=== PATIENT | male | born 1970 | race Caucasian/White ===

== ENCOUNTER 2016-09-19 11:51 | Emergency (ER) | payer OTHER ==
--- NOTE | 2016-09-19 12:14 | ED ---
General Adult HPI - General Chief complaint: Chest Pain Stated complaint: Chest Pain Time Seen by Provider: 09/19/16 12:01 Source: patient, RN notes reviewed, old records reviewed Mode of arrival: wheelchair Limitations: no limitations - History of Present Illness Initial comments: This is a 45-year-old male to the ER for evaluation. This patient presents today for evaluation of chest pain. Patient has history of angina and states this feels like his normal anginal pain. Patient has no recent cardiac evaluation he has had heart catheterizations in the past which have been normal. Patient denies increased stress no cough or congestion no fever shortness of breath. Symptoms started today and it progressed left-sided rating to jaw with no diaphoresis no modifying factors for symptoms - Related Data Home Medications Medication Instructions Recorded Confirmed Ibuprofen [Motrin] 800 mg PO Q6HR PRN 09/19/16 09/19/16 Allergies Allergy/AdvReac Type Severity Reaction Status Date / Time Penicillins Allergy Rash/Hives Verified 09/19/16 12:25 Sulfa (Sulfonamide Allergy Leg cramps Verified 09/19/16 12:25 Antibiotics) sulfamethoxazole Allergy LEG CRAMPS Verified 09/19/16 12:27 [From Bactrim] trimethoprim [From Bactrim] Allergy LEG CRAMPS Verified 09/19/16 12:27 Review of Systems ROS Statement: Those systems with pertinent positive or pertinent negative responses have been documented in the HPI. ROS Other: All systems not noted in ROS Statement are negative. Past Medical History Past Medical History: Chest Pain / Angina Additional Past Medical History / Comment(s): EPISODES OF PASSING OUT- HAD LOOP RECORDER AND CARDIAC TESTING AND PT STATES IT WAS NEGATIVE., IBS, ROSACEA, ARTHRITIS RIGHT KNEE, CARPAL TUNNEL LEFT WRIST. History of Any Multi-Drug Resistant Organisms: None Reported Past Surgical History: Appendectomy, Cholecystectomy, Heart Catheterization, Hernia Repair Additional Past Surgical History / Comment(s): loop recorder implanted 2005 and removed., ep studies,colonoscopy/egd,umbilical hernia repair, fx jaw, rt knee arthroscopy. 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 Smoking Status: Former smoker Past Alcohol Use History: None Reported Additional Past Alcohol Use History / Comment(s): started AGE 18, stopped 2000 , SMOKED < 1/2 PPD Past Drug Use History: None Reported - Past Family History Father Family Medical History: Cancer, Hypertension Additional Family Medical History / Comment(s): lung ca, MULTUPLE AK'S, PACEMAKER Mother Family Medical History: Chest Pain / Angina, Hypertension General Exam Limitations: no limitations General appearance: alert, in no apparent distress Head exam: Present: atraumatic, normocephalic, normal inspection Eye exam: Present: normal appearance, PERRL, EOMI. Absent: scleral icterus, conjunctival injection, periorbital swelling ENT exam: Present: normal exam, mucous membranes moist Neck exam: Present: normal inspection. Absent: tenderness, meningismus, lymphadenopathy Respiratory exam: Present: normal lung sounds bilaterally. Absent: respiratory distress, wheezes, rales, rhonchi, stridor Cardiovascular Exam: Present: regular rate, normal rhythm, normal heart sounds. Absent: systolic murmur, diastolic murmur, rubs, gallop, clicks GI/Abdominal exam: Present: soft, normal bowel sounds. Absent: distended, tenderness, guarding, rebound, rigid Extremities exam: Present: normal inspection, full ROM, normal capillary refill. Absent: tenderness, pedal edema, joint swelling, calf tenderness Back exam: Present: normal inspection Neurological exam: Present: alert, oriented X3, CN II-XII intact Psychiatric exam: Present: normal affect, normal mood Skin exam: Present: warm, dry, intact, normal color. Absent: rash Course Vital Signs 09/19/16 09/19/16 09/19/16 11:54 12:14 14:01 Temperature 97.4 F L 97.0 F L Pulse Rate 84 78 Pulse Rate [ 79 Bilateral Radial] Respiratory 18 15 Rate Blood Pressure 176/107 133/92 O2 Sat by Pulse 96 98 Oximetry - Reevaluation(s) Reevaluation #1: Patient consult a greater than 15 minutes and questions answered regarding diagnosis and inability to determine if he is having acute coronary syndrome or not with history and symptoms. Patient understands risks and would like to go home EKG Findings - EKG Comments: EKG Findings:: EKG shows normal sinus rhythm of 80, CT 140, QRS 110, QTC 431 Medical Decision Making - Medical Decision Making 45 malady ER with history of angina history of clean heart catheterization, coming in with anginal type pain. Patient EKG a troponin is negative. 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 Patient is in no acute distress, vital signs are normal and stable. Patient will be discharged home - Lab Data Result diagrams: 09/19/16 12:30 09/19/16 12:30 Lab Results 09/19/16 09/19/16 09/19/16 Range/Units 12:30 12:30 12:30 WBC 8.1 (3.8-10.6) k/uL RBC 5.09 (4.30-5.90) m/uL Hgb 14.9 (13.0-17.5) gm/dL Hct 43.6 (39.0-53.0) % MCV 85.6 (80.0-100.0) fL MCH 29.3 (25.0-35.0) pg MCHC 34.3 (31.0-37.0) g/dL RDW 13.2 (11.5-15.5) % Plt Count 232 (150-450) k/uL Neutrophils % 63 % Lymphocytes % 29 % Monocytes % 4 % Eosinophils % 3 % Basophils % 1 % Neutrophils # 5.1 (1.3-7.7) k/uL Lymphocytes # 2.3 (1.0-4.8) k/uL Monocytes # 0.3 (0-1.0) k/uL Eosinophils # 0.2 (0-0.7) k/uL Basophils # 0.0 (0-0.2) k/uL PT (9.0-12.0) sec INR (<1.1) APTT (22.0-30.0) sec Sodium 141 (137-145) mmol/L Potassium 4.3 (3.5-5.1) mmol/L Chloride 108 H (98-107) mmol/L Carbon Dioxide 22 (22-30) mmol/L Anion Gap 11 mmol/L BUN 12 (9-20) mg/dL Creatinine 0.81 (0.66-1.25) mg/dL Est GFR (MDRD) Af Amer >60 (>60 ml/min/1.73 sqM) Est GFR (MDRD) Non-Af >60 (>60 ml/min/1.73 sqM) Glucose 134 H (74-99) mg/dL Calcium 9.1 (8.4-10.2) mg/dL Magnesium 2.1 (1.6-2.3) mg/dL Total Bilirubin 0.5 (0.2-1.3) mg/dL AST 25 (17-59) U/L ALT 31 (21-72) U/L Alkaline Phosphatase 76 (38-126) U/L Total Creatine Kinase 83 (55-170) U/L CK-MB (CK-2) 0.8 (0.0-2.4) ng/mL CK-MB (CK-2) Rel Index 1.0 Troponin I <0.012 (0.000-0.034) ng/mL Total Protein 7.6 (6.3-8.2) g/dL Albumin 4.0 (3.5-5.0) g/dL Lipase 79 (23-300) U/L 09/19/16 Range/Units 12:30 WBC (3.8-10.6) k/uL RBC (4.30-5.90) m/uL Hgb (13.0-17.5) gm/dL Hct (39.0-53.0) % MCV (80.0-100.0) fL MCH (25.0-35.0) pg MCHC (31.0-37.0) g/dL RDW (11.5-15.5) % Plt Count (150-450) k/uL Neutrophils % % Lymphocytes % % Monocytes % % Eosinophils % % Basophils % % Neutrophils # (1.3-7.7) k/uL Lymphocytes # (1.0-4.8) k/uL Monocytes # (0-1.0) k/uL Eosinophils # (0-0.7) k/uL Basophils # (0-0.2) k/uL PT 10.0 (9.0-12.0) sec INR 1.0 (<1.1) APTT 23.8 (22.0-30.0) sec Sodium (137-145) mmol/L Potassium (3.5-5.1) mmol/L Chloride (98-107) mmol/L Carbon Dioxide (22-30) mmol/L Anion Gap mmol/L BUN (9-20) mg/dL Creatinine (0.66-1.25) mg/dL Est GFR (MDRD) Af Amer (>60 ml/min/1.73 sqM) Est GFR (MDRD) Non-Af (>60 ml/min/1.73 sqM) Glucose (74-99) mg/dL Calcium (8.4-10.2) mg/dL Magnesium (1.6-2.3) mg/dL Total Bilirubin (0.2-1.3) mg/dL AST (17-59) U/L ALT (21-72) U/L Alkaline Phosphatase (38-126) U/L Total Creatine Kinase (55-170) U/L CK-MB (CK-2) (0.0-2.4) ng/mL CK-MB (CK-2) Rel Index Troponin I (0.000-0.034) ng/mL Total Protein (6.3-8.2) g/dL Albumin (3.5-5.0) g/dL Lipase (23-300) U/L - Radiology Data Radiology results: report reviewed (Chest x-ray two-view is negative for acute disease), image reviewed Critical Care Time Critical Care Time: Yes Total Critical Care Time: 31 Disposition Clinical Impression: Chest pain Disposition: HOME SELF-CARE Condition: Good Instructions: Chest Pain (ED) Referrals: Marco Oropeza III, MD [Primary Care Provider] - 1-2 days
[2016-09-19 12:38] LABS: Basophils % (A) 1 %; CHCM 35.2; Eosinophils # (A) 0.2 k/uL (0-0.7); Eosinophils % (A) 3 %; HCT 43.6 % (39.0-53.0); HGB 14.9 gm/dL (13.0-17.5); Luc # (Auto) 0.19; Luc % (Auto) 2; Lymphocytes # (A) 2.3 k/uL (1.0-4.8); Lymphocytes % (A) 29 %; MCH 29.3 pg (25.0-35.0); MCHC 34.3 g/dL (31.0-37.0); MCV 85.6 fL (80.0-100.0); Mean Platelet Volume 7.6; Monocytes # (A) 0.3 k/uL (0-1.0); Monocytes % (A) 4 %; Neutrophils # (A) 5.1 k/uL (1.3-7.7); Neutrophils % (A) 63 %; RBC 5.09 m/uL (4.30-5.90); RDW 13.2 % (11.5-15.5); WBC 8.1 k/uL (3.8-10.6); WBC (Perox) 8.01
[2016-09-19 12:45] LABS: Partial Thromboplastin Time 23.8 sec (22.0-30.0)
--- NOTE | 2016-09-19 12:54 | XR ---
EXAMINATION TYPE: XR chest 2V DATE OF EXAM: 09/19/2016 12:45 PM COMPARISON: Prior chest x-ray third of April 2016 HISTORY: Chest pain TECHNIQUE: Frontal and lateral views of the chest are obtained. FINDINGS: Lung volumes are low. Cardiomediastinal silhouette, pulmonary vascularity and myla are sta ble. No pneumonia, pneumothorax, or pleural effusion. IMPRESSION: No acute cardiopulmonary process.
[2016-09-19 13:02] LABS: ALT 31 U/L (21-72); AST 25 U/L (17-59); Alkaline Phosphatase 76 U/L (38-126); Anion Gap 11 mmol/L; Blood Urea Nitrogen 12 mg/dL (9-20); Calcium 9.1 mg/dL (8.4-10.2); Carbon Dioxide 22 mmol/L (22-30); Chloride 108 mmol/L (98-107); Glucose 134 mg/dL (74-99); Magnesium 2.1 mg/dL (1.6-2.3); Non-African American GFR(MDRD) >60 (>60 ml/min/1.73 sqM); Potassium 4.3 mmol/L (3.5-5.1); Sodium 141 mmol/L (137-145); Total Bilirubin 0.5 mg/dL (0.2-1.3); Total Protein 7.6 g/dL (6.3-8.2)
[2016-09-19 13:03] LABS: Creatine Kinase 83 U/L (55-170)
[2016-09-19 13:15] LABS: Creatine Kinase MB 0.8 ng/mL (0.0-2.4); Troponin I <0.012 ng/mL (0.000-0.034)
[2016-09-19 14:04] VITALS: BP 133/92; PULSE 78; RESP 15; TEMP 97
== END 2016-09-19 14:04 | disposition home or self-care (01) ==
LOC: EC 11:51
DX: R07.9 Chest pain, unspecified (principal); Z98.61 Coronary angioplasty status; Z88.0 Allergy status to penicillin; Z88.2 Allergy status to sulfonamides; Z88.1 Allergy status to other antibiotic agents; Z87.891 Personal history of nicotine dependence
CPT/HCPCS: 36415; 71020; 80053; 82550; 82553; 83690; 83735; 84484; 85025; 85610; 85730; 93005; 99291

== ENCOUNTER → 2017-04-10 | Outpatient (CLI) | payer OTHER ==
--- NOTE | 2017-04-11 10:18 | CT ---
EXAMINATION TYPE: CT abdomen pelvis w con DATE OF EXAM: 04/10/2017 COMPARISON: 05/27/2015 INDICATION: Abdominal pain with blood in stool. DLP: 1869 mGycm, Automated exposure control for dose reduction was used. CONTRAST: 100 mL of Omnipaque 300. Study performed with Oral Contrast TECHNIQUE: Axial images were obtained from above the diaphragm to the pubic rami in the axial plane a t 5 mm thick sections. Reconstructed images are reviewed on the computer in the coronal plane. FINDINGS: Limited CT sections are obtained the lung bases. The lung bases are clear. CT ABDOMEN: Liver: Normal Spleen: Normal Pancreas: Normal Adrenal glands: The adrenal glands are normal. Gallbladder: Surgically absent. Kidneys: No masses are evident. No hydronephrosis is present. No cysts are present. Delayed images were obtained through the kidneys, which remain unremarkable. Aorta: Normal Inferior vena cava: Normal. CT PELVIS: Loops of bowel within the abdomen and pelvis are normal. There are loops of bowel which are incom pletely distended or lack oral contrast limiting their evaluation. No suspicious inflammatory change or masses are identified. Appendix: Normal as visualized. Urinary bladder: Normal. Genitourinary structures: Prostate is unremarkable Osseous structures: No suspicious lytic or sclerotic lesions. IMPRESSIONS: 1. Unremarkable CT abdomen and pelvis.
== END | disposition home or self-care (01) ==
LOC: RADCTMAIN 18:49
PROVIDERS: ATTEND Family Medicine
DX: K92.1 Melena (principal); R10.9 Unspecified abdominal pain
CPT/HCPCS: 74177; Q9967

== ENCOUNTER 2017-05-28 15:44 | Inpatient (IN) | payer OTHER ==
[2017-05-28] MEDS ORDERED: NITROGLYCERIN SL TABS 0.4 MG TAB SUBLINGUAL PRN ×2 (16:18→18:11)
[2017-05-28] MEDS ORDERED: ASPIRIN 81 MG PO STA (16:18)
--- NOTE | 2017-05-28 16:20 | ED ---
Chest Pain HPI - General Chief Complaint: Chest Pain Stated Complaint: Chest Pain Time Seen by Provider: 05/28/17 16:00 Source: patient, RN notes reviewed Mode of arrival: wheelchair Limitations: no limitations - History of Present Illness Initial Comments: This is a 46-year-old male with a history of hypertension and high cholesterol a former smoker who quit several years ago who states he had the onset this morning of left-sided chest discomfort. He states he got worse today after going upstairs a chest tightness and pressure is some dizziness. He states the pain initially was 8/10 severity now is down to 3-4/10. She had no cough other than a slight one this morning no phlegm no fevers chills sweats no trauma. MD Complaint: chest pain - Related Data Home Medications Medication Instructions Recorded Confirmed Atorvastatin [Lipitor] 20 mg PO DAILY 05/28/17 05/28/17 Dicyclomine [Bentyl] 20 mg PO QID 05/28/17 05/28/17 Escitalopram [Lexapro] 10 mg PO DAILY 05/28/17 05/28/17 Losartan [Cozaar] 50 mg PO DAILY 05/28/17 05/28/17 Pantoprazole Sodium [Protonix] 40 mg PO BID 05/28/17 05/28/17 cloNIDine HCL [Catapres] 0.1 mg PO BID 05/28/17 05/28/17 Allergies Allergy/AdvReac Type Severity Reaction Status Date / Time Penicillins Allergy Rash/Hives Verified 05/28/17 16:46 Sulfa (Sulfonamide AdvReac Leg cramps Verified 05/28/17 16:46 Antibiotics) sulfamethoxazole AdvReac LEG CRAMPS Verified 05/28/17 16:46 [From Bactrim] trimethoprim [From Bactrim] AdvReac LEG CRAMPS Verified 05/28/17 16:46 Review of Systems ROS Statement: Those systems with pertinent positive or pertinent negative responses have been documented in the HPI. ROS Other: All systems not noted in ROS Statement are negative. EKG Findings - EKG Results: EKG: interpreted by AMANDA, sinus rhythm (Normal sinus rhythm a rate of 72. Interval 158 QRS 106 QT since QTC of [address]-T wave changes seen.) Past Medical History Past Medical History: Chest Pain / Angina Additional Past Medical History / Comment(s): EPISODES OF PASSING OUT- HAD LOOP RECORDER AND CARDIAC TESTING AND PT STATES IT WAS NEGATIVE., IBS, ROSACEA, ARTHRITIS RIGHT KNEE, CARPAL TUNNEL LEFT WRIST. History of Any Multi-Drug Resistant Organisms: None Reported Past Surgical History: Appendectomy, Cholecystectomy, Heart Catheterization, Hernia Repair Additional Past Surgical History / Comment(s): loop recorder implanted 2005 and removed., ep studies,colonoscopy/egd,umbilical hernia repair, fx jaw, rt knee arthroscopy. Past Anesthesia/Blood Transfusion Reactions: No Reported Reaction Additional Past Anesthesia/Blood Transfusion Reaction / Comment(s): CLAUSTROPHOBIC Past Psychological History: No Psychological Hx Reported Smoking Status: Former smoker Past Alcohol Use History: None Reported Past Drug Use History: None Reported - Past Family History Father Family Medical History: Cancer, Hypertension Additional Family Medical History / Comment(s): lung ca, MULTUPLE CA'S, PACEMAKER Mother Family Medical History: Chest Pain / Angina, Hypertension General Exam - General Exam Comments Initial Comments: This is a well-developed well-nourished awake alert oriented 3 male Limitations: no limitations General appearance: alert, in no apparent distress Head exam: Present: atraumatic, normocephalic, normal inspection Eye exam: Present: normal appearance, PERRL, EOMI. Absent: scleral icterus, conjunctival injection, periorbital swelling ENT exam: Present: normal exam, mucous membranes moist Neck exam: Present: normal inspection. Absent: tenderness, meningismus, lymphadenopathy Respiratory exam: Present: normal lung sounds bilaterally. Absent: respiratory distress, wheezes, rales, rhonchi, stridor Cardiovascular Exam: Present: regular rate, normal rhythm, normal heart sounds. Absent: systolic murmur, diastolic murmur, rubs, gallop, clicks GI/Abdominal exam: Present: soft, normal bowel sounds. Absent: distended, tenderness, guarding, rebound, rigid Extremities exam: Present: normal inspection, full ROM, normal capillary refill. Absent: tenderness, pedal edema, joint swelling, calf tenderness Back exam: Present: normal inspection Neurological exam: Present: alert, oriented X3, CN II-XII intact Psychiatric exam: Present: normal affect, normal mood Skin exam: Present: warm, dry, intact, normal color. Absent: rash Course Vital Signs 05/28/17 05/28/17 05/28/17 15:46 16:26 17:00 Temperature 98.2 F Pulse Rate 89 84 66 Respiratory 18 18 18 Rate Blood Pressure 139/94 133/82 116/66 O2 Sat by Pulse 96 95 98 Oximetry 05/28/17 17:45 Temperature Pulse Rate 68 Respiratory 18 Rate Blood Pressure 116/67 O2 Sat by Pulse 99 Oximetry Chest Pain MDM - MDM Review the imaging shows no acute findings. Patient did get relief from the chest discomfort with aspirin and nitroglycerin. I did a long discussion with him and his family regarding findings patient be admitted for evaluation by cardiology. I did discuss the case with the hospitalist Dr. Carrera. Critical Care Time Critical Care Time: Yes Critical Care Time: 31 minutes of critical care time which includes initial presentation with history physical labs x-rays reevaluation the patient on several occasions for responsive therapy discuss with the patient regarding findings discussed with the admitting physician admission orders and documentation of the above. Disposition Clinical Impression: Unstable angina pectoris, Chest pain Disposition: ADMITTED IP TO THIS [facility] Condition: Stable Referrals: Marco Oropeza III, MD [Primary Care Provider] - 1-2 days
[2017-05-28 16:28] LABS: Basophils # (A) 0.1 k/uL (0-0.2); Basophils % (A) 1 %; CH 29.8; CHCM 34.8; Eosinophils # (A) 0.2 k/uL (0-0.7); Eosinophils % (A) 2 %; HCT 42.8 % (39.0-53.0); HDW 2.63; HGB 14.5 gm/dL (13.0-17.5); Luc # (Auto) 0.14; Luc % (Auto) 1; Lymphocytes # (A) 2.2 k/uL (1.0-4.8); Lymphocytes % (A) 20 %; MCH 29.1 pg (25.0-35.0); MCHC 33.8 g/dL (31.0-37.0); Mean Platelet Volume 7.3; Monocytes # (A) 0.6 k/uL (0-1.0); Monocytes % (A) 5 %; Neutrophils # (A) 7.6 k/uL (1.3-7.7); Neutrophils % (A) 71 %; RBC 4.98 m/uL (4.30-5.90); RDW 13.3 % (11.5-15.5); WBC 10.7 k/uL (3.8-10.6); WBC (Perox) 10.26
[2017-05-28 16:46] LABS: ALT 37 U/L (21-72); AST 26 U/L (17-59); Alkaline Phosphatase 99 U/L (38-126); Anion Gap 10 mmol/L; Blood Urea Nitrogen 13 mg/dL (9-20); Calcium 9.1 mg/dL (8.4-10.2); Carbon Dioxide 23 mmol/L (22-30); Chloride 106 mmol/L (98-107); Glucose 110 mg/dL (74-99); Non-African American GFR(MDRD) >60 (>60 ml/min/1.73 sqM); Potassium 4.2 mmol/L (3.5-5.1); Sodium 139 mmol/L (137-145); Total Bilirubin 0.5 mg/dL (0.2-1.3); Total Protein 7.7 g/dL (6.3-8.2)
[2017-05-28 16:49] LABS: Partial Thromboplastin Time 23.3 sec (22.0-30.0); Prothrombin Time 10.1 sec (9.0-12.0)
[2017-05-28 16:54] LABS: Creatine Kinase 103 U/L (55-170)
[2017-05-28 17:07] LABS: Troponin I <0.012 ng/mL (0.000-0.034)
--- NOTE | 2017-05-28 17:10 | XR ---
EXAMINATION TYPE: XR chest 2V DATE OF EXAM: 05/28/2017 COMPARISON: 09/19/2016 HISTORY: 46-year-old male with chest pain TECHNIQUE: PA and lateral views FINDINGS: The cardiomediastinal silhouette, aorta, and pulmonary vasculature are within normal limits. Strandy atelectasis in the lower lungs. Otherwise, lungs and pleural spaces are clear. IMPRESSION: No acute cardiopulmonary process.
[2017-05-28] MEDS ORDERED: HEPARIN SODIUM,PORCINE 5,000 UNIT/ML 1 ML VIAL IV ONE (18:11)
[2017-05-28] MEDS ORDERED: HEPARIN SODIUM,PORCINE/D5W PMX 25,000 UNIT in DEXTROSE/WATER 1 500ML.BAG IV SCH (18:15)
[2017-05-28] MEDS ORDERED: SODIUM CHLORIDE 0.9% 1,000 ML IV SCH (18:15)
[2017-05-28 19:20] LABS: Acetaminophen <10.0 ug/mL; Alcohol <10 mg/dL; Salicylate <1.0 mg/dL
[2017-05-28 20:18] VITALS: BMI 41.8
[2017-05-28] MEDS: PANTOPRAZOLE 40 MG TABLET PO SCH (20:30)
[2017-05-28] MEDS: cloNIDine HCL 0.1 MG TAB PO SCH (20:30)
[2017-05-28] MEDS: DICYCLOMINE 20 MG TAB PO SCH (20:31)
[2017-05-28] MEDS ORDERED: ALBUTEROL NEBULIZED 2.5 MG/3 ML INHALATION PRN (22:45)
--- NOTE | 2017-05-28 22:46 | P.HPIM ---
History of Present Illness H&P Date: 05/28/17 Chief Complaint: Shortness of breath Patient is a 46 old male with a known history of hypertension, IBS, GERD and hyperlipidemia, anxiety came to the hospital with complaints of chest pressure. Patient was apparently claiming up states and felt chest pressure. By the time he reached the top he felt very short of breath and dizzy. Patient also nauseated and diaphoretic. Chest pressure initially was 8/ 10 severity. Otherwise patient denied any cough or sputum production. Patient did have some dry cough. No recent illnesses.Recent travel. No injury or trauma. No sick contacts at home. Patient denied any fever or chills. Patient says that his IBS is in good control. She says that he had similar complaints previously and also had cardiac catheter patient about 2 years back. Patient quit smoking several years back Chest x-ray showed no acute coronary process EKG normal sinus rhythm D-dimer not elevated All other laboratory data unremarkable Review of Systems Constitutional: Patient denies any fever or chills . No generalized weakness or weight loss. Abdomen: Patient denied nausea vomiting and diarrhea and abdominal pain. Cardiovascular: Patient does have chest pressure. No palpitations. Patient does have shortness of breath and diaphoresis. Respiratory: patient denied any cough is from production. No shortness of breath Neurologic: Patient denied any numbness or tingling headache. Musculoskeletal: Patient denies any complaints of joint swelling or deformity. Skin: Negative Psychiatric: Negative Endocrine: No heat or cold intolerance. No recent weight gain. Genitourinary: No dysuria or hematuria. All other 14 point ROS negative except the above Past Medical History Past Medical History: Chest Pain / Angina, GERD/Reflux Additional Past Medical History / Comment(s): EPISODES OF PASSING OUT- HAD LOOP RECORDER AND CARDIAC TESTING AND PT STATES IT WAS NEGATIVE., IBS, ROSACEA, ARTHRITIS RIGHT KNEE, CARPAL TUNNEL LEFTand Right WRIST. History of Any Multi-Drug Resistant Organisms: None Reported Past Surgical History: Appendectomy, Cholecystectomy, Heart Catheterization, Hernia Repair Additional Past Surgical History / Comment(s): loop recorder implanted 2005 and removed., ep studies,colonoscopy/egd,umbilical and hiatal hernia repair, fx jaw, rt knee arthroscopy. 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 Smoking Status: Former smoker Past Alcohol Use History: None Reported Additional Past Alcohol Use History / Comment(s): started AGE 18, stopped 2000 , SMOKED < 1/2 PPD Past Drug Use History: None Reported - Past Family History Father Family Medical History: Cancer, Hypertension Additional Family Medical History / Comment(s): lung ca, MULTUPLE AL'S, PACEMAKER Mother Family Medical History: Chest Pain / Angina, Hypertension Medications and Allergies Home Medications Medication Instructions Recorded Confirmed Type Atorvastatin [Lipitor] 20 mg PO DAILY 05/28/17 05/28/17 History Dicyclomine [Bentyl] 20 mg PO QID 05/28/17 05/28/17 History Escitalopram [Lexapro] 10 mg PO DAILY 05/28/17 05/28/17 History Losartan [Cozaar] 50 mg PO DAILY 05/28/17 05/28/17 History Pantoprazole Sodium [Protonix] 40 mg PO BID 05/28/17 05/28/17 History cloNIDine HCL [Catapres] 0.1 mg PO BID 05/28/17 05/28/17 History Allergies Allergy/AdvReac Type Severity Reaction Status Date / Time Penicillins Allergy Rash/Hives Verified 05/28/17 16:46 Sulfa (Sulfonamide AdvReac Leg cramps Verified 05/28/17 16:46 Antibiotics) sulfamethoxazole AdvReac LEG CRAMPS Verified 05/28/17 16:46 [From Bactrim] trimethoprim [From Bactrim] AdvReac LEG CRAMPS Verified 05/28/17 16:46 Physical Exam Vitals: Vital Signs Temp Pulse Pulse Resp BP BP Pulse Ox 05/28/17 19:07 97 F L 61 16 114/62 99 05/28/17 18:56 97.1 F L 64 16 122/66 98 05/28/17 18:11 98 05/28/17 17:45 68 18 116/67 99 05/28/17 17:00 66 18 116/66 98 05/28/17 16:26 84 18 133/82 95 05/28/17 15:46 98.2 F 89 18 139/94 96 Intake and Output 05/28/17 05/28/1717 06:59 14:59 22:59 Intake Total 20 Balance 20 Intake: IV 20 Sodium Chloride 0.9% 1, 20 000 ml @ 20 mls/hr IV . Q24H [facility] Rx#:[id number] Other: # Voids 1 Weight 147.8 kg Patient Weight 05/29/17 06:59 Weight 147.8 kg PHYSICAL EXAMINATION: Patient is lying in the bed comfortably, no acute distress, awake alert and oriented.. HEENT: Normocephalic. Neck is supple. Pupils reactive. Nostrils clear. Oral cavity is moist. Ears reveal no drainage. Neck reveals no JVD, carotid bruits, or thyromegaly. CHEST EXAMINATION: Trachea is central. Symmetrical expansion. Decreased air entry bilateral basally. No wheezing noted. CARDIAC: Normal S1, S2 with no gallops. No murmurs ABDOMEN: Soft. Bowel sounds normal. No organomegaly. No abdominal bruits. Extremities: reveal no edema. No clubbing or cyanosis Neurologically awake, alert, oriented x3 with well-coordinated movements. No focal deficits noted Skin: No rash or skin lesions. Psychiatric: Operative. Nonsuicidal Musculoskeletal: No joint swelling or deformity. Normal range of motion. Results CBC & Chem 7: 05/28/17 16:12 05/28/17 16:12 Labs: Abnormal Lab Results - Last 24 Hours (Table) 05/28/17 05/28/17 Range/Units 16:12 16:12 WBC 10.7 H (3.8-10.6) k/uL Glucose 110 H (74-99) mg/dL Thrombosis Risk Factor Assmnt - Choose All That Apply Any of the Below Risk Factors Present?: Yes Each Factor Represents 1 point: Age 41-60 years, Obesity (BMI >25) Other Risk Factors: No Other congenital or acquired thrombophilia - If yes, enter type in comment: No Thrombosis Risk Factor Assessment Total Risk Factor Score: 2 Thrombosis Risk Factor Assessment Level: Low Risk Assessment and Plan Assessment: #1 chest pain with exertion short of breath. Possible unstable angina #2 hypertension #3 IBS #4 GERD #5 mild obesity with BMI 41.8 #6 previous history of smoking quit several years ago Plan: Patient will be continued on telemetry monitoring. Initial EKG and troponin negative. We'll continue the heparin IV and continue the home medications. Patient was started on aspirin and statin and cardiology was consulted. Will add albuterol breathing treatments as needed. Follow closely. Further recommendations based on the clinical course.
[2017-05-28] MEDS: NITROGLYCERIN OINT 1 INCH/GM PACKET TOPICAL SCH (23:02)
[2017-05-28 23:18] LABS: Creatine Kinase 100 U/L (55-170)
[2017-05-28 23:32] LABS: Creatine Kinase MB 0.8 ng/mL (0.0-2.4); Troponin I <0.012 ng/mL (0.000-0.034)
[2017-05-29 05:07] LABS: Cholesterol 174 mg/dL (<200); HDL Cholesterol 39 mg/dL (40-60)
[2017-05-29 05:33] LABS: Creatine Kinase 90 U/L (55-170)
[2017-05-29 05:45] LABS: Creatine Kinase MB 0.8 ng/mL (0.0-2.4); Troponin I <0.012 ng/mL (0.000-0.034)
[2017-05-29] MEDS: NITROGLYCERIN OINT 1 INCH/GM PACKET TOPICAL SCH (05:51)
[2017-05-29] MEDS ORDERED: AMINOPHYLLINE 500 MG/20 ML VIAL IV PRN (09:09)
[2017-05-29] MEDS ORDERED: REGADENOSON 0.4 MG/5 ML SYRINGE IV ONE (09:09)
[2017-05-29] MEDS: ASPIRIN 325 MG TAB PO SCH (11:36)
[2017-05-29] MEDS: PANTOPRAZOLE 40 MG TABLET PO SCH ×2 (11:36→21:11)
[2017-05-29] MEDS: ATORVASTATIN 20 MG TAB PO SCH (11:36)
[2017-05-29] MEDS: DICYCLOMINE 20 MG TAB PO SCH ×4 (11:37→23:18)
[2017-05-29] MEDS: ESCITALOPRAM 10 MG TAB PO SCH (11:37)
[2017-05-29] MEDS: LOSARTAN 50 MG TAB PO SCH (11:37)
[2017-05-29] MEDS: cloNIDine HCL 0.1 MG TAB PO SCH ×2 (11:37→21:11)
--- NOTE | 2017-05-29 12:18 | EST ---
EXERCISE STRESS AGE: 46 SEX: M HT: 74" WT: 325 PROTOCOL: Lexiscan Cardiolite Stress Test. HEART RATE REST: 60 BLOOD PRESSURE REST: 167/105 MAXIMUM HEART RATE ACHIEVED: 87 MAXIMUM BLOOD PRESSURE: 220/94 85% MPHR: 148 100% MPHR: 174 INDICATIONS: Chest pain. CLINICAL INFORMATION: Baseline rhythm is sinus mechanism, rate of 60, normal axis and intervals. Normal cardiogram. Baseline blood pressure 167/105 mmHg. Patient received an injection of Lexiscan. Electrocardiographic monitoring revealed no evidence of diagnostic ischemic ST deviation. Cardiolite was injected per protocol. CONCLUSION: 1. Nondiagnostic electrocardiograph Cardiolite stress testing. 2. Nuclear images will be reported separately. MMODL / IJN: [id number] /
--- NOTE | 2017-05-29 12:23 | NM ---
EXAMINATION TYPE: NM stress lexiscan cardiolite DATE OF EXAM: 05/29/2017 COMPARISON: NONE HISTORY: Chest pain TECHNIQUE: After the intravenous administration of 11.9 mCi Tc 99m Sestamibi - Cardiolite resting SP ECT images acquired 45 minutes post injection. The patient received 0.4mg Lexiscan, 26.6 mCi Tc 99m Sestamibi - Stress images obtained [address] injection FINDINGS: Review of stress and rest SPECT images demonstrates focus of decreased uptake along the anterolateral left ventricle on stress images as compared to rest images towards the base of the heart. Gated anal ysis shows normal wall motion with an estimated left ventricular ejection fraction of 58 %. IMPRESSION: Findings may represent some pharmacologically induced left ventricular myocardial ischemia along the inferolateral left ventricle towards the base of the heart. A Yellow message has been communicated to Michelle Carrera MD via the [employer] system on 05/29/2017 12:21 PM, Message ID [id number].
--- NOTE | 2017-05-29 13:33 | P.CRDCN ---
History of Present Illness Consult date: 05/29/17 History of present illness: This is a 46-year-old male past medical history significant for hypertension, hyperlipidemia and gastroesophageal reflux disease. He has follow -up with Dr. Loyola in the past. She has not seen him since 2014. At that time he underwent cardiac catheterization which revealed normal coronary arteries. He states yesterday around 7:30 in the morning if felt increasingly weak and fatigued. 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 Later in the afternoon around 2 or 3 he was walking up the stairs in the home and alternative pressure across his chest midsternal region radiating up into his neck and jaw associated with dizziness and diaphoresis and mild nausea. He states he sat down on the steps for about 5 minutes to get his bearings. After sitting down symptoms mildly subsided but still there. This episode is exactly the way he presented in 2014 prior to cardiac catheterization. At the time my examination he denies chest pain, shortness of breath, dizziness, nausea, vomiting or palpitations. EKG reveals sinus mechanism with T-wave inversions in inferior leads that is consistent with previous EKG. Cardiac enzymes negative 3, potassium 4.2, magnesium 2.0, hemoglobin 14.5, platelets 228, d-dimer negative, BUN 13, creatinine 0.9, LDL 90, HDL 39, triglycerides 223, total cholesterol 174, proBNP 230. Chest x-ray negative for acute cardiopulmonary process. Current cardiac medications include Catapres 0.1 mg twice a day, losartan 50 mg daily and Lipitor 20 mg daily. Review of Systems CONSTITUTIONAL: Denies fever. Denies chills. EYES: Denies blurred vision. Denies vision changes. Denies eye pain. EARS, NOSE, MOUTH & THROAT: Denies headache. Denies sore throat. Denies ear pain. CARDIOVASCULAR: Complains of one episode of chest pressure, resolved. Denies shortness of breath. Denies orthopnea. Denies PND. Denies palpitations. RESPIRATORY: Denies cough. GASTROINTESTINAL: Denies abdominal pain. Denies diarrhea. Denies constipation. Complains of nausea associated with chest pain, resolved. Denies vomiting. MUSCULOSKELETAL: Denies myalgias. INTEGUMENTARY: Denies pruitis. Denies rash. NEUROLOGIC: Denies numbness. Denies tingling. Complains of weakness and dizziness, resolved. PSYCHIATRIC: Denies anxiety. Denies depression. ENDOCRINE: Denies fatigue. Denies weight change. Denies polydipsia. Denies polyurina. GENITOURINARY: Denies burning, hematuria or urgency with micturation. HEMATOLOGIC: Denies history of anemia. Denies bleeding. Past Medical History Past Medical History: Chest Pain / Angina, GERD/Reflux Additional Past Medical History / Comment(s): EPISODES OF PASSING OUT- HAD LOOP RECORDER AND CARDIAC TESTING AND PT STATES IT WAS NEGATIVE., IBS, ROSACEA, ARTHRITIS RIGHT KNEE, CARPAL TUNNEL LEFTand Right WRIST. History of Any Multi-Drug Resistant Organisms: None Reported Past Surgical History: Appendectomy, Cholecystectomy, Heart Catheterization, Hernia Repair Additional Past Surgical History / Comment(s): loop recorder implanted 2005 and removed., ep studies,colonoscopy/egd,umbilical and hiatal hernia repair, fx jaw, rt knee arthroscopy. 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 Smoking Status: Former smoker Past Alcohol Use History: None Reported Additional Past Alcohol Use History / Comment(s): started AGE 18, stopped 2000 , SMOKED < 1/2 PPD Past Drug Use History: None Reported - Past Family History Father Family Medical History: Cancer, Hypertension Additional Family Medical History / Comment(s): lung ca, MULTUPLE IN'S, PACEMAKER Mother Family Medical History: Chest Pain / Angina, Hypertension Medications and Allergies Home Medications Medication Instructions Recorded Confirmed Type Atorvastatin [Lipitor] 20 mg PO DAILY 05/28/17 05/28/17 History Dicyclomine [Bentyl] 20 mg PO QID 05/28/17 05/28/17 History Escitalopram [Lexapro] 10 mg PO DAILY 05/28/17 05/28/17 History Losartan [Cozaar] 50 mg PO DAILY 05/28/17 05/28/17 History Pantoprazole Sodium [Protonix] 40 mg PO BID 05/28/17 05/28/17 History cloNIDine HCL [Catapres] 0.1 mg PO BID 05/28/17 05/28/17 History Allergies Allergy/AdvReac Type Severity Reaction Status Date / Time Penicillins Allergy Rash/Hives Verified 05/28/17 16:46 Sulfa (Sulfonamide AdvReac Leg cramps Verified 05/28/17 16:46 Antibiotics) sulfamethoxazole AdvReac LEG CRAMPS Verified 05/28/17 16:46 [From Bactrim] trimethoprim [From Bactrim] AdvReac LEG CRAMPS Verified 05/28/17 16:46 Physical Exam Vitals: Vital Signs Temp Pulse Pulse Resp BP BP Pulse Ox 05/29/17 03:55 97.2 F L 60 16 104/64 97 05/29/17 00:00 97 F L 64 16 123/72 98 05/28/17 19:07 97 F L 61 16 114/62 99 05/28/17 18:56 97.1 F L 64 16 122/66 98 05/28/17 18:11 98 05/28/17 17:45 68 18 116/67 99 05/28/17 17:00 66 18 116/66 98 05/28/17 16:26 84 18 133/82 95 05/28/17 15:46 98.2 F 89 18 139/94 96 Intake and Output 05/28/17 05/29/17 05/29/17 22:59 06:59 14:59 Intake Total 20 374.138 Balance 20 374.138 Intake: IV 20 180 Sodium Chloride 0.9% 1, 20 180 000 ml @ 20 mls/hr IV . Q24H CRUZ Rx#:[id number] Intake, IV Titration 194.138 Amount Heparin Sodium,Porcine/ 194.138 D5w Pmx 25,000 unit In Dextrose/Water 1 500ml. bag @ 6.7 UNITS/KG/HR 19. 81 mls/hr IV .Q24H CRUZ Rx #:[id number] Other: Voiding Method Toilet # Voids 1 1 Weight 147.8 kg 147.8 kg GENERAL: This is a 46-year-old male in no apparent distress at the time of my examination. Obese. HEENT: Head is atraumatic, normocephalic. Pupils are equal, round. Sclerae anicteric. Conjunctivae are clear. Mucous membranes of the mouth are moist. Neck is supple. There is no jugular venous distention. No carotid bruit is heard. LUNGS: Clear to auscultation no wheezes, rales or rhonchi. No chest wall tenderness is noted on palpation or with deep breathing. HEART: Regular rate and rhythm without murmurs, rubs or gallops. S1 and S2 heard. ABDOMEN: Soft, nontender. Bowel sounds are heard. No organomegaly noted. EXTREMITIES: 2+ peripheral pulses with no evidence of peripheral edema and no calf tenderness noted. NEUROLOGIC: Patient is awake, alert and oriented x3. Results 05/28/17 16:12 05/28/17 16:12 Cardiac Enzymes 05/28/17 05/28/17 05/28/17 Range/Units 16:12 16:12 22:11 AST 26 (17-59) U/L CK-MB (CK-2) 1.0 0.8 (0.0-2.4) ng/mL Troponin I <0.012 <0.012 (0.000-0.034) ng/mL 05/29/17 Range/Units 03:44 AST (17-59) U/L CK-MB (CK-2) 0.8 (0.0-2.4) ng/mL Troponin I <0.012 (0.000-0.034) ng/mL Coagulation 05/28/17 05/29/17 Range/Units 16:12 03:44 PT 10.1 (9.0-12.0) sec APTT 23.3 29.5 (22.0-30.0) sec Lipids 05/29/17 Range/Units 03:44 Triglycerides 223 H (<150) mg/dL Cholesterol 174 (<200) mg/dL HDL Cholesterol 39 L (40-60) mg/dL CBC 05/28/17 Range/Units 16:12 WBC 10.7 H (3.8-10.6) k/uL RBC 4.98 (4.30-5.90) m/uL Hgb 14.5 (13.0-17.5) gm/dL Hct 42.8 (39.0-53.0) % Plt Count 228 (150-450) k/uL Comprehensive Metabolic Panel 05/28/17 Range/Units 16:12 Sodium 139 (137-145) mmol/L Potassium 4.2 (3.5-5.1) mmol/L Chloride 106 (98-107) mmol/L Carbon Dioxide 23 (22-30) mmol/L BUN 13 (9-20) mg/dL Creatinine 0.90 (0.66-1.25) mg/dL Glucose 110 H (74-99) mg/dL Calcium 9.1 (8.4-10.2) mg/dL AST 26 (17-59) U/L ALT 37 (21-72) U/L Alkaline Phosphatase 99 (38-126) U/L Total Protein 7.7 (6.3-8.2) g/dL Albumin 4.3 (3.5-5.0) g/dL Current Medications Generic Name Dose Route Start Last Admin Trade Name Freq PRN Reason Stop Dose Admin Albuterol Sulfate 2.5 mg 05/28/17 22:45 Ventolin Nebulized INHALATION RT-QID PRN Shortness Of Breath Or Wheezing Aspirin 325 mg 05/29/17 09:00 Aspirin PO DAILY [facility] Atorvastatin Calcium 20 mg 05/29/17 09:00 Lipitor PO DAILY [facility] Clonidine 0.1 mg 05/28/17 21:00 05/28/17 20:30 Catapres PO 0.1 mg BID CRUZ Administration Dicyclomine HCl 20 mg 05/28/17 22:00 05/28/17 20:31 Bentyl PO 20 mg QID CRUZ Administration Escitalopram Oxalate 10 mg 05/29/17 09:00 Lexapro PO DAILY [facility] Sodium Chloride 1,000 mls @ 20 mls/hr 05/28/17 18:15 05/28/17 19:38 Saline 0.9% IV 20 mls/hr .Q24H CRUZ Administration Losartan Potassium 50 mg 05/29/17 09:00 Cozaar PO DAILY CRUZ Nitroglycerin 0.4 mg 05/28/17 16:18 05/28/17 16:24 Nitrostat SUBLINGUAL 0.4 mg Q5M PRN Administration Chest Pain Nitroglycerin 0.4 mg 05/28/17 18:11 Nitrostat SUBLINGUAL Q5M PRN Chest Pain Pantoprazole Sodium 40 mg 05/28/17 21:00 05/28/17 20:30 Protonix PO 40 mg BID CRUZ Administration Intake and Output 05/28/17 05/29/17 05/29/17 22:59 06:59 14:59 Intake Total 20 374.138 Balance 20 374.138 Intake: IV 20 180 Sodium Chloride 0.9% 1, 20 180 000 ml @ 20 mls/hr IV . Q24H CRUZ Rx#:[id number] Intake, IV Titration 194.138 Amount Heparin Sodium,Porcine/ 194.138 D5w Pmx 25,000 unit In Dextrose/Water 1 500ml. bag @ 6.7 UNITS/KG/HR 19. 81 mls/hr IV .Q24H CRUZ Rx #:[id number] Other: Voiding Method Toilet # Voids 1 1 Weight 147.8 kg 147.8 kg 05/28/17 16:12 05/28/17 16:12 Assessment and Plan Assessment: ASSESSMENT 1. Unstable angina, chest pressure, dizziness and diaphoresis with exertion. 2. Hypertension, controlled 3. Hyperlipidemia 4. Obesity PLAN Obtain 2D echocardiogram and doppler study to assess cardiac structure and function. Perform Lexiscan stress test to evaluate for reversible ischemia. If this testing is normal he can be discharged home from a cardiac perspective to follow up with Dr. VC Loyola. Nurse Practitioner note has been reviewed, I agree with a documented findings and plan of care. Patient was seen and examined.
[2017-05-29] MEDS ORDERED: ALPRAZolam 0.25 MG TAB PO PRN (13:36)
[2017-05-29] MEDS ORDERED: ALPRAZolam 0.5 MG TAB PO PRN (13:36)
[2017-05-29] MEDS ORDERED: SODIUM CHLORIDE 0.9% 1,000 ML in EMPTY BAG 1 BAG IV ONE (13:36)
[2017-05-29] MEDS ORDERED: HEPARIN SODIUM,PORCINE 5,000 UNIT/ML 1 ML VIAL IV PRN (13:36)
--- NOTE | 2017-05-29 13:36 | P.PN ---
Progress Note - Text Progress Note Date: 05/29/17 Lexiscan stress test reveals some pharmacologically induced left ventricular myocardial ischemia along the inferolateral left ventricle towards the base of the heart. This has been discussed with his primary air filler, Dr. Loyola and he recommends proceeding with cardiac catheterization. I have discussed the risks, benefits and alternative therapies for the above-mentioned procedure and for both sedation/analgesia as well as necessary blood product administration, if indicated, as they pertain to this patient. The patient and his have indicated understanding and acceptance of the risks and procedures discussed. The patient is in agreement to move forward with the above-stated procedure. He has been reported for tomorrow morning with Dr. Loyola.
[2017-05-29] MEDS: HEPARIN SODIUM,PORCINE/D5W PMX 25,000 UNIT in DEXTROSE/WATER 1 500ML.BAG IV SCH (15:50)
--- NOTE | 2017-05-30 00:09 | P.PN ---
Subjective Progress Note Date: 05/29/17 Principal diagnosis: Unstable angina Patient is a 46 old male with a known history of hypertension, IBS, GERD and hyperlipidemia, anxiety came to the hospital with complaints of chest pressure. Patient was apparently claiming up states and felt chest pressure. By the time he reached the top he felt very short of breath and dizzy. Patient also nauseated and diaphoretic. Chest pressure initially was 8/ 10 severity. Otherwise patient denied any cough or sputum production. Patient did have some dry cough. No recent illnesses.Recent travel. No injury or trauma. No sick contacts at home. Patient denied any fever or chills. Patient says that his IBS is in good control. She says that he had similar complaints previously and also had cardiac catheter patient about 2 years back. Patient quit smoking several years back Chest x-ray showed no acute coronary process EKG normal sinus rhythm D-dimer not elevated All other laboratory data unremarkable 05/29/2017 Patient is still having intermittent chest pain. No complaints of shortness of breath. Patient underwent marilou scan stress test today. No fever no chills. No acute overnight issues. Cardiology is planning for cardiac catheter patient due to abnormal stress test. Current medications reviewed Objective - Vital Signs Vital signs: Vital Signs Temp 97.5 F L 05/29/17 20:00 Pulse 63 05/29/17 20:00 Resp 16 05/29/17 20:00 BP 141/74 05/29/17 20:00 Pulse Ox 96 05/29/17 20:00 Intake & Output 05/29/17 05/29/17 05/30/17 06:59 18:59 06:59 Intake Total 394.138 350 148 Balance 394.138 350 148 Weight 147.8 kg Intake: IV 200 148 0.9@148 mls/hr 148 Sodium Chloride 0.9% 1, 200 000 ml @ 20 mls/hr IV . Q24H CRUZ Rx#:[id number] Intake, IV Titration 194.138 Amount Heparin Sodium,Porcine/ 194.138 D5w Pmx 25,000 unit In Dextrose/Water 1 500ml. bag @ 6.7 UNITS/KG/HR 19. 81 mls/hr IV .Q24H CRUZ Rx #:[id number] Oral 350 Other: Voiding Method Toilet Toilet Toilet # Voids 1 1 - Exam PHYSICAL EXAMINATION: Patient is lying in the bed comfortably, no acute distress, awake alert and oriented.. HEENT: Normocephalic. Neck is supple. Pupils reactive. Nostrils clear. Oral cavity is moist. Ears reveal no drainage. Neck reveals no JVD, carotid bruits, or thyromegaly. CHEST EXAMINATION: Trachea is central. Symmetrical expansion. Lung reis clear to auscultation and percussion. CARDIAC: Normal S1, S2 with no gallops. No murmurs ABDOMEN: Soft. Bowel sounds normal. No organomegaly. No abdominal bruits. Extremities: reveal no edema. No clubbing or cyanosis Neurologically awake, alert, oriented x3 with well-coordinated movements. No focal deficits noted Skin: No rash or skin lesions. Psychiatric: Operative. Nonsuicidal Musculoskeletal: No joint swelling or deformity. Normal range of motion. - Labs CBC & Chem 7: 05/28/17 16:12 05/28/17 16:12 Labs: Abnormal Lab Results - Last 24 Hours (Table) 05/29/17 Range/Units 03:44 Triglycerides 223 H (<150) mg/dL HDL Cholesterol 39 L (40-60) mg/dL Assessment and Plan Assessment: #1 chest pain with exertion short of breath. Possible unstable angina. With abnormal stress test #2 hypertension #3 IBS #4 GERD #5 mild obesity with BMI 41.8 #6 previous history of smoking quit several years ago Plan: Patient will be continued on telemetry monitoring. Troponin 3 negative. We' ll continue the heparin IV and continue the home medications. Patient was started on aspirin and statin and cardiology was consulted. Will add albuterol breathing treatments as needed. Patient had Lexiscan stress test done today which showed inducible inferolateral ischemia. Cardiology is planning for cardiac catheterization. Follow closely. Further recommendations based on the clinical course.
[2017-05-30 06:20] LABS: Basophils # (A) 0.1 k/uL (0-0.2); Basophils % (A) 1 %; CH 29.3; Eosinophils # (A) 0.4 k/uL (0-0.7); Eosinophils % (A) 5 %; HDW 2.59; HGB 13.7 gm/dL (13.0-17.5); Luc # (Auto) 0.18; Luc % (Auto) 2; Lymphocytes # (A) 3.3 k/uL (1.0-4.8); Lymphocytes % (A) 39 %; MCHC 32.6 g/dL (31.0-37.0); MCV 89.1 fL (80.0-100.0); Mean Platelet Volume 7.2; Monocytes # (A) 0.4 k/uL (0-1.0); Monocytes % (A) 5 %; Neutrophils # (A) 4.1 k/uL (1.3-7.7); Neutrophils % (A) 49 %; RBC 4.71 m/uL (4.30-5.90); RDW 13.2 % (11.5-15.5); WBC 8.4 k/uL (3.8-10.6); WBC (Perox) 8.28
[2017-05-30 06:25] LABS: Glucose,Whole Blood 138 mg/dL (75-99)
[2017-05-30] MEDS: ATORVASTATIN 20 MG TAB PO SCH (06:38)
[2017-05-30] MEDS: LOSARTAN 50 MG TAB PO SCH (06:38)
[2017-05-30] MEDS: DICYCLOMINE 20 MG TAB PO SCH ×4 (06:38→19:55)
[2017-05-30] MEDS: ASPIRIN 325 MG TAB PO SCH (06:38)
[2017-05-30] MEDS: cloNIDine HCL 0.1 MG TAB PO SCH ×2 (06:38→19:56)
[2017-05-30] MEDS: ESCITALOPRAM 10 MG TAB PO SCH (06:38)
[2017-05-30] MEDS: PANTOPRAZOLE 40 MG TABLET PO SCH ×2 (06:39→19:55)
--- NOTE | 2017-05-30 11:27 | ECHOF ---
Referral Reason:chest pain MEASUREMENTS -------- HEIGHT: 188.0 cm WEIGHT: 147.4 kg BP: 123/64 RVIDd: 3.8 cm (< 3.3) IVSd: 1.6 cm (0.6 - 1.1) LVIDd: 4.7 cm (3.9 - 5.3) LVPWd: 1.4 cm (0.6 - 1.1) IVSs: 2.2 cm LVIDs: 2.9 cm LVPWs: 2.1 cm LA Diam: 3.9 cm (2.7 - 3.8) LAESV Index (A-L): 22.33 ml/m Ao Diam: 3.3 cm (2.0 - 3.7) AV Cusp: 2.3 cm (1.5 - 2.6) EPSS: 0.4 cm MV E Bryant: 0.88 m/s MV DecT: 187 ms MV A Bryant: 0.69 m/s MV E/A Ratio: 1.28 MV EF SLOPE: 122.71 mm/s (70 - 150) MV EXCURSION: 1.96 cm (> 18.000) FINDINGS -------- Sinus rhythm. This was a technically good study. The left ventricular size is normal. There is moderate concentric left ventricular hypertrophy. O verall left ventricular systolic function is normal with, an EF between 55 - 60 %. The right ventricle is mild to moderately enlarged. Normal LA size by volume 22+/-6 ml/m2. The right atrium is normal in size. There is mild aortic valve sclerosis. The mitral valve is normal. No mitral regurgitation. The tricuspid valve appears structurally normal. Trace tricuspid regurgitation present. Trace/mild (physiologic) pulmonic regurgitation. The aortic root size is normal. Normal inferior vena cava with normal inspiratory collapse consistent with estimated right atrial pre ssure of 5 mmHg. There is no pericardial effusion. CONCLUSIONS -------- 1. Sinus rhythm. 2. This was a technically good study. 3. There is moderate concentric left ventricular hypertrophy. 4. Overall left ventricular systolic function is normal with, an EF between 55 - 60 %. 5. The right ventricle is mild to moderately enlarged. 6. Normal LA size by volume 22+/-6 ml/m2. 7. There is mild aortic valve sclerosis. 8. The mitral valve is normal. 9. Trace tricuspid regurgitation present. 10. Trace/mild (physiologic) pulmonic regurgitation. 11. The aortic root size is normal. 12. Normal inferior vena cava with normal inspiratory collapse consistent with estimated right atrial pressure of 5 mmHg. 13. There is no pericardial effusion. PHOTO EQUIPMENT TECHNICIAN: BRITTANY Jade
[2017-05-30] MEDS ORDERED: LIDOCAINE 2% INJ 20 MG/ML (20 ML MDV) ONE (14:00)
[2017-05-30] MEDS ORDERED: IV FLUID CONTINUATION 1,000 ML IV ONE (14:00)
[2017-05-30] MEDS ORDERED: MIDAZOLAM 2 MG/2 ML VIAL ONE (14:03)
[2017-05-30] MEDS ORDERED: fentaNYL (PF) 50 MCG/ML 2 ML AMP ONE (14:03)
[2017-05-30] MEDS ORDERED: fentaNYL (PF) 50 MCG/ML 2 ML AMP IV ONE (14:06)
[2017-05-30] MEDS ORDERED: LIDOCAINE 2% INJ 20 MG/ML SQ ONE (14:06)
[2017-05-30] MEDS ORDERED: MIDAZOLAM 2 MG/2 ML VIAL IV ONE (14:08)
[2017-05-30] MEDS ORDERED: IOHEXOL 350 MG/ML 125ML BOTTLE INJ ONE (14:30)
[2017-05-30] MEDS ORDERED: RX INFO: IV CONTRAST WAS GIVEN 1 EACH MISC MISCELLANE PRN (14:32)
--- NOTE | 2017-05-30 15:07 | CC ---
CARDIAC CATHETERIZATION REPORT Mr. Davenport is a 46-year-old gentleman who was admitted with symptoms suggestive of unstable angina. Stress test showed evidence of inferior septal ischemia. In view of that, the patient was recommended to have a cardiac catheterization for definitive diagnosis. PROCEDURE: Right groin was prepped and draped in the usual manner and the skin was infiltrated with 2% Xylocaine the right femoral artery was entered using Seldinger technique a #6- Albanian sheath was placed in. Selective coronary angiography was then performed in multiple projections and the left ventricular pressures were obtained. The patient tolerated the procedure well. Moderate sedation was used. Total sedation time is 18 minutes. Left main coronary artery is normal and patent. LAD is a good caliber blood vessel. It gives rise to good-sized diagonal branch. LAD and its branches are normal. Circumflex coronary artery continues as a good size obtuse marginal branch which is normal. Right coronary artery is a dominant in distribution and gives the PDA branch. Right coronary artery and its branches are normal. FINAL IMPRESSION: 1. This study reveals normal coronary arteries. 2. Left ventricular end-diastolic pressure is normal. RECOMMENDATIONS: Medical treatment and risk factor modification. MMODL / IJN: [id number] /
[2017-05-30] MEDS: SODIUM CHLORIDE 0.9% 1,000 ML IV SCH (15:10)
[2017-05-30] MEDS: HEPARIN SODIUM,PORCINE/D5W PMX 25,000 UNIT in DEXTROSE/WATER 1 500ML.BAG IV SCH (19:54)
[2017-05-31] MEDS: SODIUM CHLORIDE 0.9% 1,000 ML IV SCH (04:26)
[2017-05-31 06:23] LABS: Basophils % (A) 1 %; CHCM 33.2; Eosinophils # (A) 0.4 k/uL (0-0.7); Eosinophils % (A) 5 %; HCT 39.6 % (39.0-53.0); HDW 2.44; Luc % (Auto) 2; Lymphocytes # (A) 2.2 k/uL (1.0-4.8); Lymphocytes % (A) 27 %; MCH 28.7 pg (25.0-35.0); MCHC 32.8 g/dL (31.0-37.0); MCV 87.5 fL (80.0-100.0); Mean Platelet Volume 7.6; Monocytes # (A) 0.4 k/uL (0-1.0); Monocytes % (A) 5 %; Neutrophils % (A) 60 %; RBC 4.52 m/uL (4.30-5.90); RDW 14.7 % (11.5-15.5); WBC 8.2 k/uL (3.8-10.6); WBC (Perox) 8.68
[2017-05-31 06:38] LABS: Anion Gap 6 mmol/L; Blood Urea Nitrogen 13 mg/dL (9-20); Calcium 8.7 mg/dL (8.4-10.2); Carbon Dioxide 27 mmol/L (22-30); Chloride 106 mmol/L (98-107); Glucose 118 mg/dL (74-99); Non-African American GFR(MDRD) >60 (>60 ml/min/1.73 sqM); Potassium 4.4 mmol/L (3.5-5.1); Sodium 139 mmol/L (137-145)
[2017-05-31] MEDS: ASPIRIN 325 MG TAB PO SCH (09:14)
[2017-05-31] MEDS: DICYCLOMINE 20 MG TAB PO SCH (09:14)
[2017-05-31] MEDS: ATORVASTATIN 20 MG TAB PO SCH (09:15)
[2017-05-31] MEDS: cloNIDine HCL 0.1 MG TAB PO SCH (09:15)
[2017-05-31] MEDS: PANTOPRAZOLE 40 MG TABLET PO SCH (09:15)
[2017-05-31] MEDS: LOSARTAN 50 MG TAB PO SCH (09:15)
[2017-05-31] MEDS: ESCITALOPRAM 10 MG TAB PO SCH (09:15)
[2017-05-31 09:36] VITALS: BP 140/72; PULSE 70; TEMP 98
--- NOTE | 2017-05-31 10:37 | P.PN ---
Subjective Progress Note Date: 05/31/17 Principal diagnosis: Chest pain This is a 46-year-old gentleman with history of hypertension, hyperlipidemia, admitted to the hospital with chest discomfort, he underwent a stress test which represented some pharmacologically induced left ventricular myocardial ischemia and long the inferior lateral wall. For this reason he underwent a cardiac catheterization yesterday by Dr. VC Loyola. Cardiac catheterization revealed normal coronary arteries. Echocardiogram with Doppler study revealed normal left ventricular systolic function. Patient has been up ambulating without any difficulty today, denies any chest discomfort. Objective - Vital Signs Vital signs: Vital Signs Temp 98 F 05/31/17 08:00 Pulse 70 05/31/17 08:00 Resp 16 05/31/17 08:00 BP 140/72 05/31/17 08:00 Pulse Ox 95 05/31/17 08:00 Intake & Output 05/30/17 05/31/17 05/31/17 18:59 06:59 18:59 Intake Total 1612.342 375 Balance 1612.342 375 Weight 151.3 kg Intake: IV 1234 0.9@148 mls/hr 1184 Intake, IV Titration 148.342 375 Amount Heparin Sodium,Porcine/ 148.342 D5w Pmx 25,000 unit In Dextrose/Water 1 500ml. bag @ 6.77 UNITS/KG/HR 20 .01 mls/hr IV .Q24H CRUZ Rx#:[id number] Sodium Chloride 0.9% 1, 375 000 ml @ 75 mls/hr IV . [id number] CRUZ Rx#:[id number] Oral 230 Other: Voiding Method Toilet Toilet # Voids 1 1 - Exam PHYSICAL EXAMINATION: HEENT: Head is atraumatic, normocephalic. Pupils equal, round. Neck is supple. There is no elevated jugular venous pressure. HEART EXAMINATION: Heart S1, S2 normal. No murmur or gallop heard. CHEST EXAMINATION: Lungs are clear to auscultation and precussion. No chest wall tenderness is noted on palpation or with deep breathing. ABDOMEN: Soft, nontender. Bowel sounds are heard. No organomegaly noted. Right groin soft, no evidence of any hematoma. EXTREMITIES: 2+ peripheral pulses with no evidence of peripheral edema and no calf tenderness noted. NEUROLOGIC patient is awake, alert and oriented -3. . - Labs CBC & Chem 7: 05/31/17 05:45 11/08/17 05:45 Labs: Abnormal Lab Results - Last 24 Hours (Table) 05/31/17 Range/Units 05:45 Glucose 118 H (74-99) mg/dL Assessment and Plan Plan: Assessment and plan #1 chest pain, status post a Lexiscan stress test which represented some pharmacologically induced left ventricular myocardial ischemia along the inferior lateral wall. Status post cardiac catheterization which revealed normal coronary arteries. Echocardiogram with Doppler study revealed a normal left ventricular systolic function. #2 hypertension #3 hyperlipidemia #4 obesity Plan Patient may be discharged home from cardiology's perspective, we will make him a follow-up appointment to see Dr. Loyola in the office post discharge. DNP note has been reviewed, I agree with a documented findings and plan of care. Patient was seen and examined.
[2017-05-31 11:02] VITALS: RESP 18
--- NOTE | 2017-05-31 22:34 | P.PN ---
Subjective Progress Note Date: 05/30/17 Principal diagnosis: Unstable angina Patient is a 46 old male with a known history of hypertension, IBS, GERD and hyperlipidemia, anxiety came to the hospital with complaints of chest pressure. Patient was apparently claiming up states and felt chest pressure. By the time he reached the top he felt very short of breath and dizzy. Patient also nauseated and diaphoretic. Chest pressure initially was 8/ 10 severity. Otherwise patient denied any cough or sputum production. Patient did have some dry cough. No recent illnesses.Recent travel. No injury or trauma. No sick contacts at home. Patient denied any fever or chills. Patient says that his IBS is in good control. She says that he had similar complaints previously and also had cardiac catheter patient about 2 years back. Patient quit smoking several years back Chest x-ray showed no acute coronary process EKG normal sinus rhythm D-dimer not elevated All other laboratory data unremarkable 05/29/2017 Patient is still having intermittent chest pain. No complaints of shortness of breath. Patient underwent marilou scan stress test today. No fever no chills. No acute overnight issues. Cardiology is planning for cardiac catheter patient due to abnormal stress test. 05/30/2017 Currently patient denied any chest pain or short of breath. No fever no chills. No cough or sputum production. Patient underwent cardiac catheterization showing nonobstructive coronaries. Cardiology recommends medical management. We'll continue to follow another 24 hours. Current medications reviewed Objective - Vital Signs Vital signs: Vital Signs Temp 97.3 F L 05/30/17 20:00 Pulse 65 05/30/17 20:00 Resp 16 05/30/17 20:00 BP 122/70 05/30/17 20:00 Pulse Ox 96 05/30/17 20:00 Intake & Output 05/30/17 05/30/17 05/31/17 06:59 18:59 06:59 Intake Total 8540.587 3019.342 75 Balance 8206.643 6500.342 75 Weight 149.9 kg Intake: IV 740 1234 0.9@148 mls/hr 740 1184 Intake, IV Titration 351.658 148.342 75 Amount Heparin Sodium,Porcine/ 351.658 148.342 D5w Pmx 25,000 unit In Dextrose/Water 1 500ml. bag @ 6.77 UNITS/KG/HR 20 .01 mls/hr IV .Q24H CRUZ Rx#:[id number] Sodium Chloride 0.9% 1, 75 000 ml @ 75 mls/hr IV . [id number] CRUZ Rx#:[id number] Oral 230 Other: Voiding Method Toilet Toilet Toilet # Voids 1 1 1 - Exam PHYSICAL EXAMINATION: Patient is lying in the bed comfortably, no acute distress, awake alert and oriented.. HEENT: Normocephalic. Neck is supple. Pupils reactive. Nostrils clear. Oral cavity is moist. Ears reveal no drainage. Neck reveals no JVD, carotid bruits, or thyromegaly. CHEST EXAMINATION: Trachea is central. Symmetrical expansion. Lung reis clear to auscultation and percussion. CARDIAC: Normal S1, S2 with no gallops. No murmurs ABDOMEN: Soft. Bowel sounds normal. No organomegaly. No abdominal bruits. Extremities: reveal no edema. No clubbing or cyanosis Neurologically awake, alert, oriented x3 with well-coordinated movements. No focal deficits noted Skin: No rash or skin lesions. Psychiatric: Operative. Nonsuicidal Musculoskeletal: No joint swelling or deformity. Normal range of motion. - Labs CBC & Chem 7: 05/31/17 05:45 05/31/17 05:45 Labs: Abnormal Lab Results - Last 24 Hours (Table) 05/30/17 05/30/17 Range/Units 05:46 06:23 APTT 32.0 H (22.0-30.0) sec POC Glucose (mg/dL) 138 H (75-99) mg/dL Assessment and Plan Assessment: #1 chest pain with exertion short of breath. Possible unstable angina. With abnormal stress test. #2 hypertension #3 IBS #4 GERD #5 mild obesity with BMI 41.8 #6 previous history of smoking quit several years ago Plan: Patient will be continued on telemetry monitoring. Troponin 3 negative. We' ll continue the heparin IV and continue the home medications. Patient was started on aspirin and statin and cardiology was consulted. Will add albuterol breathing treatments as needed. Patient had Lexiscan stress test done which showed inducible inferolateral ischemia. Cardiac Catheterization today showed nonobstructive coronaries. Recommended medical management.. Follow closely. Further recommendations based on the clinical course.
--- NOTE | 2017-05-31 22:36 | P.DS ---
Providers Date of admission: 05/29/17 14:02 Expected date of discharge: 05/31/17 Attending physician: Michelle Carrera Consults: 05/28/17 18:11 Consult Physician Urgent Consulting Provider: Salvador Thomson Consult Reason/Comments: Chest pain Do you want consulting provider notified?: Yes Primary care physician: Marco Govea [facility] Course: Discharge diagnosis #1 chest pain with exertion short of breath. Possible unstable angina. With abnormal stress test. Cardiac cath negative #2 hypertension #3 IBS #4 GERD #5 mild obesity with BMI 41.8 #6 previous history of smoking quit several years ago Hospital course Patient is a 46 old male with a known history of hypertension, IBS, GERD and hyperlipidemia, anxiety came to the hospital with complaints of chest pressure. Patient was apparently claiming up states and felt chest pressure. By the time he reached the top he felt very short of breath and dizzy. Patient also nauseated and diaphoretic. Chest pressure initially was 8/ 10 severity. Otherwise patient denied any cough or sputum production. Patient did have some dry cough. No recent illnesses.Recent travel. No injury or trauma. No sick contacts at home. Patient denied any fever or chills. Patient says that his IBS is in good control. She says that he had similar complaints previously and also had cardiac catheter patient about 2 years back. Patient quit smoking several years back Chest x-ray showed no acute coronary process EKG normal sinus rhythm D-dimer not elevated All other laboratory data unremarkable 05/29/2017 Patient is still having intermittent chest pain. No complaints of shortness of breath. Patient underwent marilou scan stress test today. No fever no chills. No acute overnight issues. Cardiology is planning for cardiac catheter patient due to abnormal stress test. 05/30/2017 Currently patient denied any chest pain or short of breath. No fever no chills. No cough or sputum production. Patient underwent cardiac catheterization showing nonobstructive coronaries. Cardiology recommends medical management. We'll continue to follow another 24 hours. 05/31/2017 Patient denied any chest pain or short of breath today. Patient be continued on aspirin and recommended to follow-up as outpatient with cardiology clinic. Otherwise patient is cleared for discharge. Plan: Patient will be continued on telemetry monitoring. Troponin 3 negative. We' ll continue the heparin IV and continue the home medications. Patient was started on aspirin and statin and cardiology was consulted. Will add albuterol breathing treatments as needed. Patient had Lexiscan stress test done which showed inducible inferolateral ischemia. Cardiac Catheterization today showed nonobstructive coronaries. Recommended medical management.. Patient is stable to be discharged home. Discharge physical examination was done Patient Condition at Discharge: Stable Plan - Discharge Summary New Discharge Prescriptions: New Aspirin 81 mg PO DAILY #30 chewable Continue cloNIDine HCL [Catapres] 0.1 mg PO BID Dicyclomine [Bentyl] 20 mg PO QID Pantoprazole Sodium [Protonix] 40 mg PO BID Losartan [Cozaar] 50 mg PO DAILY Escitalopram [Lexapro] 10 mg PO DAILY Atorvastatin [Lipitor] 20 mg PO DAILY Discharge Medication List Atorvastatin [Lipitor] 20 mg PO DAILY 05/28/17 [History] Dicyclomine [Bentyl] 20 mg PO QID 05/28/17 [History] Escitalopram [Lexapro] 10 mg PO DAILY 05/28/17 [History] Losartan [Cozaar] 50 mg PO DAILY 05/28/17 [History] Pantoprazole Sodium [Protonix] 40 mg PO BID 05/28/17 [History] cloNIDine HCL [Catapres] 0.1 mg PO BID 05/28/17 [History] Aspirin 81 mg PO DAILY #30 chewable 05/31/17 [Rx] Follow up Appointment(s)/Referral(s): Marco Oropeza III, MD [Primary Care Provider] - 06/02/17 8:00 am (Monday) Lucina Loyola MD [STAFF PHYSICIAN] - 06/08/17 2:30 pm Patient Instructions/Handouts: *Surgery [facility] - After Heart Catheterization - [facility] Instructions, Left Heart Catheterization (DC), Heart Healthy Diet (DC) Discharge Disposition: HOME SELF-CARE
== END 2017-05-31 12:08 | disposition home or self-care (01) | DRG 192 ==
LOC: EC 15:44 → 6SEL 18:15 → 3OBS 05-29 07:54 → OBSVTOIN 05-29 14:02 → 6SEL 05-29 18:12
PROVIDERS: ADMIT Internal Medicine; ATTEND Internal Medicine
PROC: B2111ZZ Fluoroscopy of Multiple Coronary Arteries using Low Osmolar Contrast (ICD-10-PCS; 2017-05-30)
PROC: 4A023N7 Measurement of Cardiac Sampling and Pressure, Left Heart, Percutaneous Approach (ICD-10-PCS; principal; 2017-05-30 13:52)
DX: R07.9 Chest pain, unspecified (principal); I10 Essential (primary) hypertension; E66.9 Obesity, unspecified; E78.5 Hyperlipidemia, unspecified; F40.240 Claustrophobia; K21.9 Gastro-esophageal reflux disease without esophagitis; K58.9 Irritable bowel syndrome, unspecified; M17.11 Unilateral primary osteoarthritis, right knee; L71.9 Rosacea, unspecified; G56.01 Carpal tunnel syndrome, right upper limb; F41.9 Anxiety disorder, unspecified; Z68.41 Body mass index [BMI] 40.0-44.9, adult; Z79.899 Other long term (current) drug therapy; Z87.891 Personal history of nicotine dependence; Z88.1 Allergy status to other antibiotic agents; Z88.0 Allergy status to penicillin; Z88.2 Allergy status to sulfonamides; Z82.49 Family history of ischemic heart disease and other diseases of the circulatory system
CPT/HCPCS: 36415; 71020; 78452; 80048; 80053; 80061; 80320; 82140; 82550; 82553; 83520; 83735; 83880; 84484; 85025; 85379; 85610; 85730; 93005; 93017; 93306; 93458; 94760; 96365; 96376; 99291

== ENCOUNTER 2017-06-20 22:41 | Observation (INO) | payer OTHER ==
[2017-06-20] MEDS ORDERED: NITROGLYCERIN OINT 1 INCH/GM PACKET TOPICAL STA (23:04)
[2017-06-20] MEDS ORDERED: ASPIRIN 81 MG PO STA (23:04)
--- NOTE | 2017-06-20 23:10 | ED ---
Chest Pain HPI - General Chief Complaint: Chest Pain Stated Complaint: Chest Pain With Syncope Time Seen by Provider: 06/20/17 22:51 Source: patient Mode of arrival: wheelchair Limitations: no limitations - History of Present Illness Initial Comments: This 46-year-old white male presents with a complaint of some chest pain which she describes as a heaviness or pressure in his midsternal region without radiation. He states that it occurred shortly prior to arrival while he was laying on the couch. He went to stand up and apparently passed out felt and hit his right forehead on the ground. He is only out for several seconds. He does relate some palpitations, shortness of breath, and lightheadedness but denies any diaphoresis. He is also complaining of some right calf pain. He states that the chest pain is improved at this time but still present. He did take an aspirin at home. He relates that he was here earlier in the month and had a full workup for chest pain at that time as well. He had a negative computed tomography scan as well as heart catheterization. He had an equivocal stress test. They did not find any evidence of significant coronary artery disease and he did not receive any cardiac stents. He states that it sounds like they thought he might have some vasospasm. He is put on multiple medications. He states that his blood pressure will sometimes run fairly low at home well on all of these medications. - Related Data Home Medications Medication Instructions Recorded Confirmed Atorvastatin [Lipitor] 20 mg PO DAILY 05/28/17 06/20/17 Dicyclomine [Bentyl] 20 mg PO QID 05/28/17 06/20/17 Losartan [Cozaar] 50 mg PO DAILY 05/28/17 06/20/17 Pantoprazole Sodium [Protonix] 40 mg PO BID 05/28/17 06/20/17 cloNIDine HCL [Catapres] 0.1 mg PO BID 05/28/17 06/20/17 Escitalopram [Lexapro] 20 mg PO DAILY 06/20/17 06/20/17 amLODIPine [Norvasc] 10 mg PO DAILY 06/20/17 06/20/17 Previous Rx's Medication Instructions Recorded Aspirin 81 mg PO DAILY #30 chewable 05/31/17 Allergies Allergy/AdvReac Type Severity Reaction Status Date / Time Penicillins Allergy Rash/Hives Verified 06/20/17 23:10 Sulfa (Sulfonamide AdvReac Leg cramps Verified 06/20/17 23:10 Antibiotics) sulfamethoxazole AdvReac LEG CRAMPS Verified 06/20/17 23:10 [From Bactrim] trimethoprim [From Bactrim] AdvReac LEG CRAMPS Verified 06/20/17 23:10 Review of Systems ROS Statement: Those systems with pertinent positive or pertinent negative responses have been documented in the HPI. ROS Other: All systems not noted in ROS Statement are negative. Past Medical History Past Medical History: Chest Pain / Angina, GERD/Reflux Additional Past Medical History / Comment(s): EPISODES OF PASSING OUT- HAD LOOP RECORDER AND CARDIAC TESTING AND PT STATES IT WAS NEGATIVE., IBS, ROSACEA, ARTHRITIS RIGHT KNEE, CARPAL TUNNEL LEFTand Right WRIST. History of Any Multi-Drug Resistant Organisms: None Reported Past Surgical History: Appendectomy, Cholecystectomy, Heart Catheterization, Hernia Repair Additional Past Surgical History / Comment(s): loop recorder implanted 2005 and removed., ep studies,colonoscopy/egd,umbilical and hiatal hernia repair, fx jaw, rt knee arthroscopy. Past Anesthesia/Blood Transfusion Reactions: No Reported Reaction Additional Past Anesthesia/Blood Transfusion Reaction / Comment(s): CLAUSTROPHOBIC Past Psychological History: Anxiety Smoking Status: Former smoker Past Alcohol Use History: None Reported Past Drug Use History: None Reported - Past Family History Father Family Medical History: Cancer, Hypertension Additional Family Medical History / Comment(s): lung ca, MULTUPLE [place]'S, PACEMAKER Mother Family Medical History: Chest Pain / Angina, Hypertension General Exam - General Exam Comments Initial Comments: GENERAL: The patient is well nourished and well hydrated. VITAL SIGNS: Heart rate, blood pressure, respiratory rate reviewed as recorded in nurse's notes. EYES: Pupils are round and reactive. Extraocular movements are intact. No conjunctival / lid redness or swelling. ENT: No external evidence of injury, swelling, or ecchymosis. Airway is patent. Throat is clear. There is mild tenderness to the right forehead but no hematoma. NECK: Nontender. No swelling or evidence of injury. No subcutaneous emphysema. Trachea is midline. No thyroid mass. HEART: Regular rate and rhythm. Good peripheral pulses. LUNGS/CHEST: Breath sounds clear and equal bilaterally. No rales, rhonchi, or wheezes. No ecchymosis, subcutaneous emphysema, or tenderness. ABDOMEN: Abdomen soft without tenderness. No palpable masses or organomegaly. No peritoneal signs. No abdominal wall swelling or ecchymosis. EXTREMITIES: There is mild tenderness present to the right calf. Normal muscle tone and function. No thoracolumbar tenderness. NEUROLOGIC: Sensation is grossly intact. Cranial nerve exam reveals face is symmetrical, tongue is midline, speech is clear. SKIN: No abrasions or ecchymosis is noted. No induration or masses noted. PSYCHIATRIC: Alert and oriented. Appropriate behavior and judgment. Limitations: no limitations Course Vital Signs 06/20/17 06/21/17 22:43 00:18 Temperature 98.1 F Pulse Rate 75 60 Respiratory 20 Rate Blood Pressure 146/93 122/59 O2 Sat by Pulse 96 96 Oximetry Chest Pain MDM - MDM The patient was seen and examined. All diagnostics were reviewed. An EKG was done and this shows a normal sinus rhythm at a rate of 73. There is no acute ST -T wave changes identified. The NV intervals 140, QRS duration is 108, and QTC intervals 464. An IV is established and he is placed on the quality assurance monitor no ectopy is identified. He does receive some aspirin as well as Nitropaste. The chest x-ray does not show any acute processes. The computed tomography scan of the brain is negative. The laboratory is reviewed and does show some mild elevation of the CPK and CK-MB but the troponin is negative. The right lower extremity venous Doppler is negative for any evidence of DVT. He is feeling improved on recheck. He denies having any further chest pain. It is felt as though he should be admitted to the hospital for further evaluation of this chest pain and syncope and to rule out the possibility of acute coronary syndrome. He is agreeable. Case will be discussed with internal medicine in the near future. Disposition Clinical Impression: Chest pain, Unstable angina pectoris, Syncope, Head injury, Right calf pain, Elevated CK-MB level Disposition: ADMITTED IP TO THIS [facility] Condition: Fair Time of Disposition: 00:54 Decision Date: 06/21/17 Decision Time: 00:54
[2017-06-20 23:17] LABS: Basophils # (A) 0.1 k/uL (0-0.2); Basophils % (A) 1 %; CH 28.8; CHCM 34.1; Eosinophils # (A) 0.6 k/uL (0-0.7); Eosinophils % (A) 5 %; HCT 38.9 % (39.0-53.0); HDW 2.51; HGB 13.3 gm/dL (13.0-17.5); Luc # (Auto) 0.15; Luc % (Auto) 1; Lymphocytes # (A) 3.2 k/uL (1.0-4.8); Lymphocytes % (A) 28 %; MCHC 34.3 g/dL (31.0-37.0); MCV 84.7 fL (80.0-100.0); Mean Platelet Volume 7.5; Monocytes # (A) 0.7 k/uL (0-1.0); Monocytes % (A) 6 %; Neutrophils # (A) 6.8 k/uL (1.3-7.7); Neutrophils % (A) 59 %; RDW 14.6 % (11.5-15.5); WBC 11.5 k/uL (3.8-10.6); WBC (Perox) 11.44
[2017-06-20 23:26] LABS: ALT 42 U/L (21-72); AST 37 U/L (17-59); Alkaline Phosphatase 88 U/L (38-126); Anion Gap 9 mmol/L; Blood Urea Nitrogen 22 mg/dL (9-20); Calcium 8.8 mg/dL (8.4-10.2); Carbon Dioxide 23 mmol/L (22-30); Chloride 106 mmol/L (98-107); Glucose 137 mg/dL (74-99); Non-African American GFR(MDRD) >60 (>60 ml/min/1.73 sqM); Potassium 3.8 mmol/L (3.5-5.1); Sodium 138 mmol/L (137-145); Total Bilirubin 0.6 mg/dL (0.2-1.3); Total Protein 6.8 g/dL (6.3-8.2)
[2017-06-20 23:32] LABS: Partial Thromboplastin Time 23.9 sec (22.0-30.0); Prothrombin Time 10.1 sec (9.0-12.0)
[2017-06-20 23:38] LABS: Creatine Kinase 627 U/L (55-170)
--- NOTE | 2017-06-20 23:45 | XR ---
EXAMINATION TYPE: XR chest 2V DATE OF EXAM: 06/20/2017 COMPARISON: 05/28/2017 HISTORY: Syncope TECHNIQUE: Frontal and lateral views of the chest are obtained. FINDINGS: Heart and mediastinum are normal. Lungs are clear. Diaphragm is normal. There are chest le ads. Bony thorax is intact. IMPRESSION: Normal chest. No change.
[2017-06-20 23:50] LABS: Troponin I <0.012 ng/mL (0.000-0.034)
--- NOTE | 2017-06-20 23:53 | CT ---
EXAMINATION TYPE: CT brain wo con DATE OF EXAM: 06/20/2017 COMPARISON: 12/19/2014 HISTORY: syncope with fall CT DLP: 1147 mGycm. Automated Exposure Control for Dose Reduction was Utilized. TECHNIQUE: CT scan of the head is performed without contrast. FINDINGS: Ventricles of normal size. There is no mass effect nor midline shift. There is no sign of intracranial hemorrhage. The calvarium is intact. CONCLUSION: Negative CT scan of the brain. No change.
[2017-06-20 23:54] LABS: Creatine Kinase MB 2.9 ng/mL (0.0-2.4)
[2017-06-21] MEDS ORDERED: NITROGLYCERIN SL TABS 0.4 MG TAB SUBLINGUAL PRN (00:54)
--- NOTE | 2017-06-21 01:11 | US ---
EXAMINATION TYPE: US venous doppler duplex LE RT DATE OF EXAM: 06/21/2017 12:42 AM COMPARISON: NONE CLINICAL HISTORY: Pain. right calf pain SIDE PERFORMED: Right TECHNIQUE: The lower extremity deep venous system is examined utilizing real time linear array sonog law with graded compression, doppler sonography and color-flow sonography. VESSELS IMAGED: External Iliac Vein (EIV) Common Femoral Vein Deep Femoral Vein Greater Saphenous Vein * Femoral Vein Popliteal Vein Small Saphenous Vein * Proximal Calf Veins (* superficial vessels) Right Leg: Negative for DVT No evidence of DVT seen IMPRESSION: Negative exam. No evidence of deep venous thrombosis in the right leg.
[2017-06-21 01:55] VITALS: RESP 16
[2017-06-21] MEDS ORDERED: NITROGLYCERIN OINT 1 INCH/GM PACKET TOPICAL SCH (06:00)
[2017-06-21 06:22] LABS: Creatine Kinase 445 U/L (55-170)
[2017-06-21 06:35] LABS: Creatine Kinase MB 2.2 ng/mL (0.0-2.4); Troponin I <0.012 ng/mL (0.000-0.034)
[2017-06-21] MEDS ORDERED: PANTOPRAZOLE 40 MG TABLET PO SCH (07:30)
[2017-06-21] MEDS: DICYCLOMINE 20 MG TAB PO SCH ×2 (08:00→13:19)
[2017-06-21] MEDS ORDERED: cloNIDine HCL 0.1 MG TAB PO SCH (09:00)
[2017-06-21] MEDS ORDERED: amLODIPine 10 MG TAB PO SCH (09:00)
[2017-06-21] MEDS ORDERED: ENOXAPARIN 40 MG/0.4 ML SYRINGE SQ SCH (09:00)
[2017-06-21] MEDS ORDERED: LOSARTAN 50 MG TAB PO SCH (09:00)
[2017-06-21] MEDS ORDERED: ATORVASTATIN 20 MG TAB PO SCH (09:00)
[2017-06-21] MEDS ORDERED: ESCITALOPRAM 20 MG TAB PO SCH (09:00)
--- NOTE | 2017-06-21 10:09 | P.CRDCN ---
History of Present Illness Consult date: 06/21/17 Requesting physician: Pooja Whitten Consult reason: sycope, chest pain Chief complaint: Chest pressure and syncope History of present illness: Is a 46-year-old gentleman with history of hypertension, hyperlipidemia, GERD, who was recently in the hospital and underwent a cardiac catheterization by Dr. VC Loyola. Cardiac catheterization revealed normal coronary arteries. It was felt that the patient may have an element of vasospasm and he was initiated on Norvasc. Patient presents to the hospital on this occasion with symptoms that he describes initially as a pressure in the chest, subsequent to that patient states he sat on the side of the bed for a while felt a little dizzy, once the symptoms resolved he walked into the kitchen , again became dizzy and woke up on the floor. Patient states he has had 2 prior syncopal episodes in the past, each time the 2 prior episodes happen he was urinating at the time he passed out. EKG shows normal sinus rhythm with no acute changes. CAT scan of the brain negative. Blood pressure and heart rate have been stable. Orthostatics were obtained this morning which were negative. Blood cell count 11.5, hemoglobin 13.3, d-dimer 0.4. Potassium 3.8, BUN 22, creatinine 0.9. Troponins 0.0122. CK 627 and 445. At the time of my examination this morning, patient denies any dizziness or lightheadedness, denies any chest discomfort. Past Medical History Past Medical History: Chest Pain / Angina, GERD/Reflux Additional Past Medical History / Comment(s): EPISODES OF PASSING OUT- HAD LOOP RECORDER AND CARDIAC TESTING AND PT STATES IT WAS NEGATIVE., IBS, ROSACEA, ARTHRITIS RIGHT KNEE, CARPAL TUNNEL LEFTand Right WRIST. History of Any Multi-Drug Resistant Organisms: None Reported Past Surgical History: Appendectomy, Cholecystectomy, Heart Catheterization, Hernia Repair Additional Past Surgical History / Comment(s): loop recorder implanted 2005 and removed., ep studies,colonoscopy/egd,umbilical and hiatal hernia repair, fx jaw, rt knee arthroscopy. 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 Smoking Status: Former smoker Past Alcohol Use History: None Reported Additional Past Alcohol Use History / Comment(s): started AGE 18, stopped 2000 , SMOKED < 1/2 PPD Past Drug Use History: None Reported - Past Family History Father Family Medical History: Cancer, Hypertension Additional Family Medical History / Comment(s): lung ca, MULTUPLE AZ'S, PACEMAKER Mother Family Medical History: Chest Pain / Angina, Hypertension Medications and Allergies Home Medications Medication Instructions Recorded Confirmed Type Atorvastatin [Lipitor] 20 mg PO DAILY 05/28/17 06/20/17 History Dicyclomine [Bentyl] 20 mg PO QID 05/28/17 06/20/17 History Losartan [Cozaar] 50 mg PO DAILY 05/28/17 06/20/17 History Pantoprazole Sodium [Protonix] 40 mg PO BID 05/28/17 06/20/17 History cloNIDine HCL [Catapres] 0.1 mg PO BID 05/28/17 06/20/17 History Aspirin 81 mg PO DAILY #30 chewable 05/31/17 06/20/17 Rx Escitalopram [Lexapro] 20 mg PO DAILY 06/20/17 06/20/17 History amLODIPine [Norvasc] 10 mg PO DAILY 06/20/17 06/20/17 History Allergies Allergy/AdvReac Type Severity Reaction Status Date / Time Penicillins Allergy Rash/Hives Verified 06/20/17 23:10 Sulfa (Sulfonamide AdvReac Leg cramps Verified 06/20/17 23:10 Antibiotics) sulfamethoxazole AdvReac LEG CRAMPS Verified 06/20/17 23:10 [From Bactrim] trimethoprim [From Bactrim] AdvReac LEG CRAMPS Verified 06/20/17 23:10 Physical Exam Vitals: Vital Signs Temp Pulse Pulse Resp BP BP Pulse Ox 06/21/17 04:00 97.0 F L 62 16 114/59 93 L 06/21/17 03:52 96.8 F L 60 16 133/84 95 06/21/17 03:31 96.8 F L 60 16 133/84 95 06/21/17 02:35 54 L 111/63 97 06/21/17 01:54 54 L 16 117/65 96 06/21/17 00:18 60 122/59 96 06/20/17 22:43 98.1 F 75 20 146/93 96 Intake and Output 06/20/17 06/21/17 06/21/17 22:59 06:59 14:59 Other: # Voids 1 Weight 147.418 kg 149.6 kg PHYSICAL EXAMINATION: HEENT: Head is atraumatic, normocephalic. Pupils equal, round. Neck is supple. There is no elevated jugular venous pressure. HEART EXAMINATION: Heart S1, S2 normal. No murmur or gallop heard. CHEST EXAMINATION: Lungs are clear to auscultation and precussion. No chest wall tenderness is noted on palpation or with deep breathing. ABDOMEN: Soft, nontender. Bowel sounds are heard. No organomegaly noted. EXTREMITIES: 2+ peripheral pulses with no evidence of peripheral edema and no calf tenderness noted. NEUROLOGIC patient is awake, alert and oriented -3. . Results 06/20/17 22:56 06/20/17 22:56 Cardiac Enzymes 06/20/17 06/20/17 06/21/17 Range/Units 22:56 22:56 05:37 AST 37 (17-59) U/L CK-MB (CK-2) 2.9 H* 2.2 (0.0-2.4) ng/mL Troponin I <0.012 <0.012 (0.000-0.034) ng/mL Coagulation 06/20/17 Range/Units 22:56 PT 10.1 (9.0-12.0) sec APTT 23.9 (22.0-30.0) sec CBC 06/20/17 Range/Units 22:56 WBC 11.5 H (3.8-10.6) k/uL RBC 4.60 (4.30-5.90) m/uL Hgb 13.3 (13.0-17.5) gm/dL Hct 38.9 L (39.0-53.0) % Plt Count 222 (150-450) k/uL Comprehensive Metabolic Panel 06/20/17 Range/Units 22:56 Sodium 138 (137-145) mmol/L Potassium 3.8 (3.5-5.1) mmol/L Chloride 106 (98-107) mmol/L Carbon Dioxide 23 (22-30) mmol/L BUN 22 H (9-20) mg/dL Creatinine 0.90 (0.66-1.25) mg/dL Glucose 137 H (74-99) mg/dL Calcium 8.8 (8.4-10.2) mg/dL AST 37 (17-59) U/L ALT 42 (21-72) U/L Alkaline Phosphatase 88 (38-126) U/L Total Protein 6.8 (6.3-8.2) g/dL Albumin 3.8 (3.5-5.0) g/dL Current Medications Generic Name Dose Route Start Last Admin Trade Name Freq PRN Reason Stop Dose Admin Amlodipine Besylate 10 mg 06/21/17 09:00 06/21/17 08:02 Norvasc PO 10 mg DAILY [facility] Administration Aspirin 325 mg 06/22/17 09:00 Aspirin PO DAILY [facility] Atorvastatin Calcium 20 mg 06/21/17 09:00 06/21/17 08:00 Lipitor PO 20 mg DAILY [facility] Administration Clonidine 0.1 mg 06/21/17 09:00 06/21/17 08:00 Catapres PO 0.1 mg BID [facility] Administration Dicyclomine HCl 20 mg 06/21/17 09:00 06/21/17 08:00 Bentyl PO 20 mg QID [facility] Administration Enoxaparin Sodium 40 mg 06/21/17 09:00 06/21/17 07:59 Lovenox SQ 40 mg DAILY [facility] Administration Escitalopram Oxalate 20 mg 06/21/17 09:00 06/21/17 08:00 Lexapro PO 20 mg DAILY [facility] Administration Losartan Potassium 50 mg 06/21/17 09:00 06/21/17 08:00 Cozaar PO 50 mg DAILY [facility] Administration Nitroglycerin 1 inch 06/21/17 06:00 06/21/17 06:13 Nitro-Bid Oint TOPICAL 1 inch Q6HR [facility] Administration Nitroglycerin 0.4 mg 06/21/17 00:54 Nitrostat SUBLINGUAL Q5M PRN Chest Pain Pantoprazole Sodium 40 mg 06/21/17 07:30 06/21/17 06:14 Protonix PO 40 mg AC-BID [facility] Administration Intake and Output 06/20/17 06/21/17 06/21/17 22:59 06:59 14:59 Other: # Voids 1 Weight 147.418 kg 149.6 kg 06/20/17 22:56 06/20/17 22:56 EKG Interpretations (text) EKG shows a normal sinus rhythm with no acute changes. Assessment and Plan Plan: Assessment and plan #1 chest discomfort, atypical in nature. Patient had cardiac catheterization one week ago which revealed normal coronary arteries. There was suggestion of possible vasospasm at that time and patient was initiated on Norvasc 10 mg daily. D-dimer negative. Venous duplex study negative for DVT. Orthostatics negative. #2 hypertension #3 hyperlipidemia #4 anxiety Plan We'll discontinue the IV heparin, discontinue Nitropaste. Decrease aspirin to 81 mg daily. I will have the nurse repeat orthostatics again this morning. We 'll also order a CT of the aorta, if negative from cardiology's perspective the patient may be able to be discharged home. He has a follow-up appointment scheduled in the office. DNP note has been reviewed, I agree with a documented findings and plan of care. Patient was seen and examined.
[2017-06-21] MEDS ORDERED: RX INFO: IV CONTRAST WAS GIVEN 1 EACH MISC MISCELLANE PRN (10:10)
--- NOTE | 2017-06-21 11:03 | P.CRDCN ---
History of Present Illness History of present illness: Patient interviewed and examined. Presented with chest pain again. Normal coronary arteries. We will send him for CT angiogram of the chest to rule out aortic dissection. Cardiac enzymes normal as expected. CPKs are elevated at 627 and 445 with normal troponins. D-dimer normal Suggest If CT angiogram is normal then increase losartan 215 g by mouth daily. He should take amlodipine the morning and losartan 115 g. In the evening and should stop clonidine. Clonidine in a twice a day dosing may cause rebound hypertension If his blood pressure is still elevated then a diuretic and be used in addition to losartan Past Medical History Past Medical History: Chest Pain / Angina, GERD/Reflux Additional Past Medical History / Comment(s): EPISODES OF PASSING OUT- HAD LOOP RECORDER AND CARDIAC TESTING AND PT STATES IT WAS NEGATIVE., IBS, ROSACEA, ARTHRITIS RIGHT KNEE, CARPAL TUNNEL LEFTand Right WRIST. History of Any Multi-Drug Resistant Organisms: None Reported Past Surgical History: Appendectomy, Cholecystectomy, Heart Catheterization, Hernia Repair Additional Past Surgical History / Comment(s): loop recorder implanted 2005 and removed., ep studies,colonoscopy/egd,umbilical and hiatal hernia repair, fx jaw, rt knee arthroscopy. 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 Smoking Status: Former smoker Past Alcohol Use History: None Reported Additional Past Alcohol Use History / Comment(s): started AGE 18, stopped 2000 , SMOKED < 1/2 PPD Past Drug Use History: None Reported - Past Family History Father Family Medical History: Cancer, Hypertension Additional Family Medical History / Comment(s): lung ca, MULTUPLE SD'S, PACEMAKER Mother Family Medical History: Chest Pain / Angina, Hypertension Medications and Allergies Home Medications Medication Instructions Recorded Confirmed Type Atorvastatin [Lipitor] 20 mg PO DAILY 05/28/17 06/20/17 History Dicyclomine [Bentyl] 20 mg PO QID 05/28/17 06/20/17 History Pantoprazole Sodium [Protonix] 40 mg PO BID 05/28/17 06/20/17 History Aspirin 81 mg PO DAILY #30 chewable 05/31/17 06/20/17 Rx Escitalopram [Lexapro] 20 mg PO DAILY 06/20/17 06/20/17 History amLODIPine [Norvasc] 10 mg PO DAILY 06/20/17 06/20/17 History Losartan [Cozaar] 150 mg PO DAILY #1 tab 06/21/17 Rx Allergies Allergy/AdvReac Type Severity Reaction Status Date / Time Penicillins Allergy Rash/Hives Verified 06/20/17 23:10 Sulfa (Sulfonamide AdvReac Leg cramps Verified 06/20/17 23:10 Antibiotics) sulfamethoxazole AdvReac LEG CRAMPS Verified 06/20/17 23:10 [From Bactrim] trimethoprim [From Bactrim] AdvReac LEG CRAMPS Verified 06/20/17 23:10 Physical Exam Vitals: Vital Signs Temp Pulse Pulse Pulse Pulse Resp BP 06/21/17 08:00 97 F L 83 84 83 16 06/21/17 04:00 97.0 F L 62 16 06/21/17 03:52 96.8 F L 60 16 06/21/17 03:31 96.8 F L 60 16 06/21/17 02:35 54 L 111/63 06/21/17 01:54 54 L 16 117/65 06/21/17 00:18 60 122/59 06/20/17 22:43 98.1 F 75 20 146/93 BP BP BP Pulse Ox 06/21/17 08:00 125/77 125/83 108/66 95 06/21/17 04:00 114/59 93 L 06/21/17 03:52 133/84 95 06/21/17 03:31 133/84 95 06/21/17 02:35 97 06/21/17 01:54 96 06/21/17 00:18 96 06/20/17 22:43 96 Intake and Output 06/20/17 06/21/17 06/21/17 22:59 06:59 14:59 Other: # Voids 1 1 Weight 147.418 kg 149.6 kg Results 06/20/17 22:56 06/20/17 22:56 Cardiac Enzymes 06/20/17 06/20/17 06/21/17 Range/Units 22:56 22:56 05:37 AST 37 (17-59) U/L CK-MB (CK-2) 2.9 H* 2.2 (0.0-2.4) ng/mL Troponin I <0.012 <0.012 (0.000-0.034) ng/mL Coagulation 06/20/17 Range/Units 22:56 PT 10.1 (9.0-12.0) sec APTT 23.9 (22.0-30.0) sec CBC 06/20/17 Range/Units 22:56 WBC 11.5 H (3.8-10.6) k/uL RBC 4.60 (4.30-5.90) m/uL Hgb 13.3 (13.0-17.5) gm/dL Hct 38.9 L (39.0-53.0) % Plt Count 222 (150-450) k/uL Comprehensive Metabolic Panel 06/20/17 Range/Units 22:56 Sodium 138 (137-145) mmol/L Potassium 3.8 (3.5-5.1) mmol/L Chloride 106 (98-107) mmol/L Carbon Dioxide 23 (22-30) mmol/L BUN 22 H (9-20) mg/dL Creatinine 0.90 (0.66-1.25) mg/dL Glucose 137 H (74-99) mg/dL Calcium 8.8 (8.4-10.2) mg/dL AST 37 (17-59) U/L ALT 42 (21-72) U/L Alkaline Phosphatase 88 (38-126) U/L Total Protein 6.8 (6.3-8.2) g/dL Albumin 3.8 (3.5-5.0) g/dL Current Medications Generic Name Dose Route Start Last Admin Trade Name Freq PRN Reason Stop Dose Admin Amlodipine Besylate 10 mg 06/21/17 09:00 06/21/17 08:02 Norvasc PO 10 mg DAILY [facility] [place] Administration Aspirin 81 mg 06/22/17 09:00 Aspirin PO DAILY [facility] Atorvastatin Calcium 20 mg 06/21/17 09:00 06/21/17 08:00 Lipitor PO 20 mg DAILY [facility] Administration Dicyclomine HCl 20 mg 06/21/17 09:00 06/21/17 08:00 Bentyl PO 20 mg QID [facility] Administration Enoxaparin Sodium 40 mg 06/21/17 09:00 06/21/17 07:59 Lovenox SQ 40 mg DAILY [facility] Administration Escitalopram Oxalate 20 mg 06/21/17 09:00 06/21/17 08:00 Lexapro PO 20 mg DAILY [facility] Administration Losartan Potassium 150 mg 06/21/17 10:59 Cozaar PO DAILY [facility] Miscellaneous Information 1 each 06/21/17 10:10 Rx Info: Iv Contrast Was Given MISCELLANE 06/23/17 10:12 DAILY PRN Per Protocol Nitroglycerin 0.4 mg 06/21/17 00:54 Nitrostat SUBLINGUAL Q5M PRN Chest Pain Pantoprazole Sodium 40 mg 06/21/17 07:30 06/21/17 06:14 Protonix PO 40 mg AC-BID [facility] Administration Intake and Output 06/20/17 06/21/17 06/21/17 22:59 06:59 14:59 Other: # Voids 1 1 Weight 147.418 kg 149.6 kg 06/20/17 22:56 06/20/17 22:56
[2017-06-21 11:32] VITALS: BP 133/81; PULSE 81; TEMP 97
[2017-06-21 11:44] LABS: Creatine Kinase 380 U/L (55-170)
[2017-06-21 11:55] LABS: Creatine Kinase MB 2.1 ng/mL (0.0-2.4); Troponin I <0.012 ng/mL (0.000-0.034)
--- NOTE | 2017-06-21 14:27 | CT ---
EXAMINATION TYPE: CT angio thoracic/abd aorta DATE OF EXAM: 06/21/2017 COMPARISON: NONE HISTORY: chest pain, possible dissection CT DLP: 3597.5 mGycm CONTRAST: CTA thoracic and abdominal aorta with 3-D reconstruction is performed and without and with IV Contras t, patient injected with 100 mL of Omnipaque 350. Contrast CTA of the thoracic and abdominal aorta was performed from the lung apex through the base of the pelvis. 3-D reconstruction imaging obtained at a separate workstation. CT Chest: THORACIC AORTA: There is no evidence for aneurysm. No dissection or mediastinal hematoma. Mild ath eromatous changes are seen. LUNGS: The lungs are clear and free of infiltrate or atelectasis. No pulmonary nodule or mass is det ected. No pleural effusion or CT evidence of interstitial lung disease. MEDIASTINUM: The heart is not enlarged. No evidence for mediastinal mass or adenopathy. HILAR STRUCTURES: No evidence for mass. No hilar adenopathy is appreciated. OTHER: No significant abnormality. CONTRAST CT ABDOMEN AND PELVIS ABDOMENAL AORTA: No evidence for abdominal aortic aneurysm. No dissection. Iliac vessels are symmet tyrel and patent. LIVER/GB-hepatic steatosis. Cholecystectomy clips. PANCREAS- No significant abnormality is seen. SPLEEN- No significant abnormality is seen. ADRENALS- No significant abnormality is seen. KIDNEYS/BLADDER- No significant abnormality is seen. BOWEL- No Significant abnormality GENITAL ORGANS: No gross abnormality seen. LYMPH NODES- No greater than 1cm abdominal or pelvic lymph nodes areappreciated. OSSEOUS STRUCTURES- No significant abnormality is seen. OTHER- No significant abnormality is seen. IMPRESSION- 1. No evidence for aortic aneurysm or dissection.
--- NOTE | 2017-06-21 15:46 | P.HPIM ---
History of Present Illness H&P Date: 06/21/17 Chief Complaint: Chest PAIN Is a 46-year-old gentleman with history of hypertension, hyperlipidemia, GERD, who was recently in the hospital and underwent a cardiac catheterization by Dr. VC Loyola. Cardiac catheterization revealed normal coronary arteries. It was felt that the patient may have an element of vasospasm and he was initiated on Norvasc. Patient presents to the hospital on this occasion with symptoms that he describes initially as a pressure in the chest, subsequent to that patient states he sat on the side of the bed for a while felt a little dizzy, once the symptoms resolved he walked into the kitchen , again became dizzy and woke up on the floor. Patient states he has had 2 prior syncopal episodes in the past, each time the 2 prior episodes happen he was urinating at the time he passed out. EKG shows normal sinus rhythm with no acute changes. CAT scan of the brain negative. Blood pressure and heart rate have been stable. Orthostatics were obtained this morning which were negative. Patient denies any other associated symptoms Review of Systems All systems: negative Past Medical History Past Medical History: Chest Pain / Angina, GERD/Reflux Additional Past Medical History / Comment(s): EPISODES OF PASSING OUT- HAD LOOP RECORDER AND CARDIAC TESTING AND PT STATES IT WAS NEGATIVE., IBS, ROSACEA, ARTHRITIS RIGHT KNEE, CARPAL TUNNEL LEFTand Right WRIST. History of Any Multi-Drug Resistant Organisms: None Reported Past Surgical History: Appendectomy, Cholecystectomy, Heart Catheterization, Hernia Repair Additional Past Surgical History / Comment(s): loop recorder implanted 2005 and removed., ep studies,colonoscopy/egd,umbilical and hiatal hernia repair, fx jaw, rt knee arthroscopy. 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 Smoking Status: Former smoker Past Alcohol Use History: None Reported Additional Past Alcohol Use History / Comment(s): started AGE 18, stopped 2000 , SMOKED < 1/2 PPD Past Drug Use History: None Reported - Past Family History Father Family Medical History: Cancer, Hypertension Additional Family Medical History / Comment(s): lung ca, MULTUPLE IL'S, PACEMAKER Mother Family Medical History: Chest Pain / Angina, Hypertension Medications and Allergies Home Medications Medication Instructions Recorded Confirmed Type Atorvastatin [Lipitor] 20 mg PO DAILY 05/28/17 06/20/17 History Dicyclomine [Bentyl] 20 mg PO QID 05/28/17 06/20/17 History Pantoprazole Sodium [Protonix] 40 mg PO BID 05/28/17 06/20/17 History Aspirin 81 mg PO DAILY #30 chewable 05/31/17 06/20/17 Rx Escitalopram [Lexapro] 20 mg PO DAILY 06/20/17 06/20/17 History amLODIPine [Norvasc] 10 mg PO DAILY 06/20/17 06/20/17 History Losartan [Cozaar] 150 mg PO DAILY #1 tab 06/21/17 Rx Allergies Allergy/AdvReac Type Severity Reaction Status Date / Time Penicillins Allergy Rash/Hives Verified 06/20/17 23:10 Sulfa (Sulfonamide AdvReac Leg cramps Verified 06/20/17 23:10 Antibiotics) sulfamethoxazole AdvReac LEG CRAMPS Verified 06/20/17 23:10 [From Bactrim] trimethoprim [From Bactrim] AdvReac LEG CRAMPS Verified 06/20/17 23:10 Physical Exam Vitals: Vital Signs Temp Pulse Pulse Pulse Pulse Resp BP 06/21/17 11:30 97.0 F L 81 71 67 16 06/21/17 08:00 97 F L 83 84 83 16 06/21/17 04:00 97.0 F L 62 16 06/21/17 03:52 96.8 F L 60 16 06/21/17 03:31 96.8 F L 60 16 06/21/17 02:35 54 L 111/63 06/21/17 01:54 54 L 16 117/65 06/21/17 00:18 60 122/59 06/20/17 22:43 98.1 F 75 20 146/93 BP BP BP Pulse Ox 06/21/17 11:30 133/81 137/73 126/74 97 06/21/17 08:00 125/77 125/83 108/66 95 06/21/17 04:00 114/59 93 L 06/21/17 03:52 133/84 95 06/21/17 03:31 133/84 95 06/21/17 02:35 97 06/21/17 01:54 96 06/21/17 00:18 96 06/20/17 22:43 96 Intake and Output 06/21/17 06/21/17 06/21/17 06:59 14:59 22:59 Intake Total 236 Balance 236 Intake: Oral 236 Other: # Voids 1 1 Weight 149.6 kg General: [Patient awake, alert and oriented x 3.] [No acute distress.] HEENT: [Sclerae are clear.] [Pupils equal, round and reactive to light bilaterally.] [No cervical adenopathy.] [No pharyngeal erythema or exudate.] [ No thyromegaly.] Lymphatic: [No anterior cervical adenopathy.] Chest: [Heart regular in rate and rhythm positive S1 and S2.] [No abnormal sounds noted.] [No edema noted.] Lungs: [Clear to auscultation bilaterally.] [No wheezes, crackles or rhonchi.] Abdomen/GI: [Soft, non tender, no organomegaly noted.] [Bowel sounds present.] Musculoskeletal/ Extremities: [No tenderness on muscular exam.] [No ecchymosis. ] Vascular: [Radial pulses equal, pedal pulses appreciated.] Skin: [No rash.] Neurologic: [Awake, alert and oriented times 3.] [Cranial nerves II-XI grossly intact, no motor or sensory deficits noted.] Results CBC & Chem 7: 06/20/17 22:56 06/20/17 22:56 Labs: Abnormal Lab Results - Last 24 Hours (Table) 06/20/17 06/20/17 06/20/17 Range/Units 22:56 22:56 22:56 WBC 11.5 H (3.8-10.6) k/uL Hct 38.9 L (39.0-53.0) % BUN 22 H (9-20) mg/dL Glucose 137 H (74-99) mg/dL Total Creatine Kinase 627 H (55-170) U/L CK-MB (CK-2) 2.9 H* (0.0-2.4) ng/mL 06/21/17 06/21/17 Range/Units 05:37 10:34 WBC (3.8-10.6) k/uL Hct (39.0-53.0) % BUN (9-20) mg/dL Glucose (74-99) mg/dL Total Creatine Kinase 445 H 380 H (55-170) U/L CK-MB (CK-2) (0.0-2.4) ng/mL Assessment and Plan Assessment: Plan: Assessment and plan #1 chest discomfort, atypical in nature. #2 hypertension #3 hyperlipidemia #4 anxiet #5 syncope likely toxic effects of medications Plan: Patient pending a cardiology consultation continue with IV heparin. Continue with current meds. Cardiac telemetry patient nothing by mouth once diagnosis studies as completely patient be placed on a cardiac diet. Continue monitor vital signs and laboratory data. Encourage incentive spirometer. Further plans pending overall course
--- NOTE | 2017-06-21 15:50 | P.DS ---
Providers Date of admission: 06/21/17 00:54 Expected date of discharge: 06/21/17 (Patient had unexpected recovery from serious illness) Attending physician: Pooja Whitten MD Consults: 06/21/17 00:54 Consult Physician Urgent Consulting Provider: Kayley Huang Consult Reason/Comments: cp, syncope Do you want consulting provider notified?: Yes Primary care physician: [facility] Course: Is a 46-year-old gentleman with history of hypertension, hyperlipidemia, GERD, who was recently in the hospital and underwent a cardiac catheterization by Dr. VC Loyola. Cardiac catheterization revealed normal coronary arteries. It was felt that the patient may have an element of vasospasm and he was initiated on Norvasc. Patient presents to the hospital on this occasion with symptoms that he describes initially as a pressure in the chest, subsequent to that patient states he sat on the side of the bed for a while felt a little dizzy, once the symptoms resolved he walked into the kitchen , again became dizzy and woke up on the floor. Patient states he has had 2 prior syncopal episodes in the past, each time the 2 prior episodes happen he was urinating at the time he passed out. EKG shows normal sinus rhythm with no acute changes. CAT scan of the brain negative. Patient had a CT of the chest did not show any aortic dissection or aneurysm. She was seen by cardiology who adjusted the patient's medication as likely cause of the syncope has Norvasc and Catapres was discontinued losartan was added instead Patient's patient had an medical record from Center discharged home in stable recovered condition Patient Condition at Discharge: Good Plan - Discharge Summary New Discharge Prescriptions: New Losartan [Cozaar] 150 mg PO DAILY #1 tab Discontinued cloNIDine HCL [Catapres] 0.1 mg PO BID Losartan [Cozaar] 50 mg PO DAILY No Action Dicyclomine [Bentyl] 20 mg PO QID Pantoprazole Sodium [Protonix] 40 mg PO BID Atorvastatin [Lipitor] 20 mg PO DAILY Aspirin 81 mg PO DAILY #30 chewable amLODIPine [Norvasc] 10 mg PO DAILY Escitalopram [Lexapro] 20 mg PO DAILY Discharge Medication List Atorvastatin [Lipitor] 20 mg PO DAILY 05/28/17 [History] Dicyclomine [Bentyl] 20 mg PO QID 05/28/17 [History] Pantoprazole Sodium [Protonix] 40 mg PO BID 05/28/17 [History] Aspirin 81 mg PO DAILY #30 chewable 05/31/17 [Rx] Escitalopram [Lexapro] 20 mg PO DAILY 06/20/17 [History] amLODIPine [Norvasc] 10 mg PO DAILY 06/20/17 [History] Losartan [Cozaar] 150 mg PO DAILY #1 tab 06/21/17 [Rx] Follow up Appointment(s)/Referral(s): Marco Oropeza III, MD [Primary Care Provider] - 1-2 days Lucina Loyola MD [STAFF PHYSICIAN] - 06/30/17 2:30 pm Patient Instructions/Handouts: Acute Coronary Syndrome (DC) Activity/Diet/Wound Care/Special Instructions: Cardiac diet Discharge Disposition: HOME SELF-CARE
[2017-06-22] MEDS ORDERED: ASPIRIN 325 MG TAB PO SCH (09:00)
[2017-06-22] MEDS ORDERED: LOSARTAN 50 MG TAB PO SCH (09:00)
[2017-06-22] MEDS ORDERED: ASPIRIN 81 MG PO SCH (09:00)
== END 2017-06-21 17:59 | disposition home or self-care (01) ==
LOC: EC 22:41 → INTOOBSV 06-21 00:54 → 6SEL 06-21 00:54
PROVIDERS: ADMIT Internal Medicine; ATTEND Internal Medicine
DX: R55 Syncope and collapse (principal); S09.90XA Unspecified injury of head, initial encounter; I10 Essential (primary) hypertension; E78.5 Hyperlipidemia, unspecified; F41.9 Anxiety disorder, unspecified; K58.9 Irritable bowel syndrome, unspecified; K21.9 Gastro-esophageal reflux disease without esophagitis; F40.240 Claustrophobia; M17.11 Unilateral primary osteoarthritis, right knee; Z88.0 Allergy status to penicillin; Z88.2 Allergy status to sulfonamides; Z79.899 Other long term (current) drug therapy; Z79.82 Long term (current) use of aspirin; Z82.49 Family history of ischemic heart disease and other diseases of the circulatory system; Z80.1 Family history of malignant neoplasm of trachea, bronchus and lung; Z87.891 Personal history of nicotine dependence; Z87.19 Personal history of other diseases of the digestive system; Z90.49 Acquired absence of other specified parts of digestive tract; Z90.89 Acquired absence of other organs; R74.8 Abnormal levels of other serum enzymes; R06.02 Shortness of breath; R00.2 Palpitations; M79.661 Pain in right lower leg
CPT/HCPCS: 96372; 99285; 36415; 93005; 85379; 83880; 80053; 82550 ×2; 82553 ×2; 83735; 84484 ×2; 85025; 85610; 85730; 71020; 93971; 70450; 75635; 71275; G0378; Q9967; J1650

== ENCOUNTER 2022-04-23 17:38 | Emergency (ER) | payer OTHER ==
[2022-04-23 17:57] VITALS: BP 154/90; PULSE 83; RESP 18; TEMP 98.5
[2022-04-23 18:24] LABS: Basophils % (A) 0 %; Eosinophils # (A) 0.3 k/uL (0-0.7); Eosinophils % (A) 3 %; HCT 41.8 % (39.0-53.0); HGB 14.2 gm/dL (13.0-17.5); Lymphocytes # (A) 2.9 k/uL (1.0-4.8); Lymphocytes % (A) 27 %; MCH 29.2 pg (25.0-35.0); MCHC 33.9 g/dL (31.0-37.0); MCV 86.2 fL (80.0-100.0); Mean Platelet Volume 7.9; Monocytes # (A) 0.4 k/uL (0-1.0); Monocytes % (A) 4 %; Neutrophils # (A) 6.9 k/uL (1.3-7.7); Neutrophils % (A) 64 %; Platelet Count 220 k/uL (150-450); RBC 4.86 m/uL (4.30-5.90); RDW 12.8 % (11.5-15.5); WBC 10.8 k/uL (3.8-10.6)
[2022-04-23 18:31] LABS: ALT 23 U/L (4-49); AST 24 U/L (17-59); African American GFR (CKD) >90 (>60 ml/min/1.73 sqM); Albumin 4.1 g/dL (3.5-5.0); Alkaline Phosphatase 85 U/L (38-126); Anion Gap 12 mmol/L; Blood Urea Nitrogen 16 mg/dL (9-20); Carbon Dioxide 24 mmol/L (22-30); Chloride 102 mmol/L (98-107); Glucose 155 mg/dL (74-99); Non-African American GFR(CKD) 90 (>60 ml/min/1.73 sqM); Potassium 4.2 mmol/L (3.5-5.1); Sodium 138 mmol/L (137-145); Total Bilirubin 0.3 mg/dL (0.2-1.3); Total Protein 7.4 g/dL (6.3-8.2)
[2022-04-23 18:32] LABS: INR 0.9 (<1.2); Prothrombin Time 9.9 sec (9.0-12.0)
[2022-04-23 18:33] LABS: Partial Thromboplastin Time 23.3 sec (22.0-30.0)
--- NOTE | 2022-04-23 18:55 | XR ---
EXAMINATION TYPE: XR chest 2V DATE OF EXAM: 04/23/2022 COMPARISON: 06/20/2017 HISTORY: Short of breath TECHNIQUE: FINDINGS: Heart is normal. Lungs are clear. Diaphragm is normal. Bony thorax is intact. IMPRESSION: Normal chest. No change.
== END 2022-04-23 22:22 | disposition left against medical advice (07) ==
LOC: EC 17:38
DX: Z53.21 Procedure and treatment not carried out due to patient leaving prior to being seen by health care provider (principal)
CPT/HCPCS: 36415; 71046; 80053; 84484; 85025; 85610; 85730; 93005; 99499

== ENCOUNTER → 2022-08-08 | Outpatient (CLI) | payer OTHER ==
--- NOTE | 2022-08-09 08:30 | XR ---
EXAM TYPE: LUMBAR SPINE X RAY SERIES COMPARISON: NONE HISTORY: Pain TECHNIQUE: 4 views are submitted. FINDINGS: Alignment is anatomic. The pedicles are intact. The transverse processes are intact. There were mu ltiple Schmorl's nodes. There is hypertrophic spurring L1-L2 anteriorly there is mild degenerative di sc disease L4-5 severe changes at L5-S1. IMPRESSION: 1. Severe degenerative disc disease L5-S1
== END | disposition home or self-care (01) ==
LOC: RADXRMAIN 16:15
PROVIDERS: ATTEND Internal Medicine
DX: M47.16 Other spondylosis with myelopathy, lumbar region (principal); M51.06 Intervertebral disc disorders with myelopathy, lumbar region
CPT/HCPCS: 72100

== ENCOUNTER → 2022-08-13 | Outpatient (CLI) | payer OTHER ==
--- NOTE | 2022-08-13 13:46 | MR ---
EXAMINATION TYPE: MR lumbar spine wo con DATE OF EXAM: 08/13/2022 COMPARISON: None HISTORY: Back pain TECHNIQUE: Multiplanar, multisequence images of the lumbar spine were acquired without IV contrast. Findings: The lumbar vertebral segments are normal in height and alignment and there is no fracture or subluxat ion. There is mild spondylosis at the L1-2 level indicating mild degenerative disc disease however the dis c spaces well-maintained. There is moderate degenerative disease at the L4-5 and L5-S1 levels with si gnal intensity of the discs and mild discogenic endplate changes. There is no definite lumbar disc he rniation. There is a possible small annular tear of the posterior annulus at the L5-S1 level. There is no spinal stenosis. There is moderate to severe neural foraminal stenosis at the L5-S1 level bilaterally. The conus medullaris and cauda equina appear normal. The paraspinal soft tissues are unremarkable. IMPRESSION: 1. Multilevel degenerative disease greatest at the L4-5 and L5-S1 level. 2. No lumbar disc herniation but possible small annular tear at the L5-S1 level posteriorly. 3. No spinal stenosis. 4. Moderate to severe bilateral neural foraminal stenosis at the L5-S1 level bilaterally.
== END | disposition home or self-care (01) ==
LOC: RADMRIMAIN 11:52
PROVIDERS: ATTEND Internal Medicine
DX: M47.16 Other spondylosis with myelopathy, lumbar region (principal); M99.73 Connective tissue and disc stenosis of intervertebral foramina of lumbar region; M99.74 Connective tissue and disc stenosis of intervertebral foramina of sacral region
CPT/HCPCS: 72148

== ENCOUNTER → 2022-08-24 | Outpatient (CLI) | payer OTHER ==
[2022-08-24 09:36] VITALS: BP 184/103; PULSE 94; RESP 18
--- NOTE | 2022-08-24 14:06 | P.PAINPG ---
PQRS Measure Charge Sheet Comment: HISTORY OF PRESENT ILLNESS: 51 yr old male w at side as a referral from Dr Davis presents today w severe and chronic LBP secondary to DDD, spnodylosis and facet arthropathy wtihout myelopathy for evaluation. Pt states pain level is at 10/10 in intensity, constant, localized in the mid lumbar spine, burning, sharp in character w shooting pain towards BL hips, glutes, groin and anterior thoighs. Pain is provoked by bending, sitting for periods of 20 min or more. Pain is alleviated by TENS, massage at home, chiropractic treatments in 2020 without relief, home exercise as tolerated, alternating heat & ice, meds (Baclofen, Tramadol), topicals, repositioning and rest. PMH: Angina, GERD, OA, IBS, Claustrophobia/ Anxiety PSH: BL Carpal Tunnel Syndrome, Appendectomy, Cholecystectomy, Heart Catheterization, Hernia Repair, EGD/ Colonoscopy, Hiatal Hernia, Fractured Jaw Repair, R Knee Arthroscopy SH: 20 pack/ yr tobacco use quit in 2000, No ETOH abuse, THC use. w 4 children. 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 FH: Fa- Lung CA/ Pacemaker, HTN. Mo- Angina/ HTN All: See list Meds: See list REVIEW OF ORGAN SYSTEMS: CONSTITUTIONAL: No fevers or chills. No recent weight loss. NEUROLOGICAL: + numbness and tingling along the distal extremities. No seizure disorders or headaches. MUSCULOSKELETAL: + pain PSYCHIATRIC: Denies current depression or suicidal thoughts. Physical Examinations : Constitutional : Cooperative , not in acute distress . Neurologic : Cranial nerve II to XII intact. No focal neurological deficits. Psychiatric : alert & oriented x 3. Matching mood & appropriate affect. Judgment & insight intact. Musculoskeletal : Cervical Spine Motor strength in the deltoid and biceps: Normal right side. Normal Left side Motor strength biceps and the wrist extensors: Normal right side . Normal left side Motor strength in the triceps muscle: Normal right side. Normal left side Deep tendon reflexes: Normal at the biceps. Normal at Brachioradialis. Normal at triceps Vertebral body tenderness to deep palpation over Cervical facet loading test: positive bilaterally Spurling test: positive bilaterally Neck distraction test: positive bilaterally Ella sign: positive bilaterally Lumbar spine Motor strength lower extremities ,thigh and legs 5/5 Right side , 5/5 Left side Deep tendon reflexes : Normal Knee Jerk. Normal Ankle Jerk Vertebral body tenderness over Lumbar facet Loading Test: positive Right / positive Left Range of motion of the lumbar spine Flexion 30 degrees, extension 10 degrees Straight Leg Raise test: Left/ Right positive at degree Katey test: positive right / positive left. Severe tenderness over the Sacroiliac joint on the Right / Left sides Gaenslen test: positive bilaterally Seated flexion test: positive bilaterally. Sacral spine : Severe tenderness over the Sacroiliac joint: right side / left side Range of motion: Flexion of the lumbar spine <60 degrees Range of motion: Extension of the lumbar spine <20 degrees Gaenslen's Test positive BL Katey test: positive right side > l eft side R positive Thigh Thrust Test BL positive Sacral Thrust Test Imaging: MRI without contrast of the lumbar spine from 08/13/22 reviewed Assessment/ Plan : BL Sacroiliitis Recommendation of BL SI injections. May need a series for optimal pain relief. Risks, benefits of procedure discussed and patient verbalized understanding. Denies aspirin or anti- coagulant use or medical history of diabetes. Protocol for discontinuation/ continuation of medications saige procedure discussed. All questions answered. I have spent greater than 30 minutes on patient care today. Dr Kim was available by phone for the evaluation of this patient. The time was used to review the medical records including relevant urine studies and Prescription history (MAPs), review of the available imaging, evaluation and examination of the patient, coordination of care with the medical staff and if applicable referring physicians, as well as creation of the medical record PQRS Narrative: Smoking Status Former smoker Home Medications: Ambulatory Orders Atorvastatin [Lipitor] 20 mg PO DAILY 05/28/17 Dicyclomine [Bentyl] 20 mg PO QID 05/28/17 Pantoprazole Sodium [Protonix] 40 mg PO BID 05/28/17 Aspirin 81 mg PO DAILY #30 chewable 05/31/17 Escitalopram [Lexapro] 20 mg PO DAILY 06/20/17 amLODIPine [Norvasc] 10 mg PO DAILY 06/20/17 Losartan [Cozaar] 150 mg PO DAILY #1 tab 06/21/17 Controlled Substance Measures - Controlled Substance Measures Is patient prescribed a controlled substance at discharge?: No
== END ==
LOC: PNWHC3 08:30
PROVIDERS: ATTEND Specialist
DX: M46.1 Sacroiliitis, not elsewhere classified (principal); Z79.82 Long term (current) use of aspirin; K21.9 Gastro-esophageal reflux disease without esophagitis; M19.90 Unspecified osteoarthritis, unspecified site; F41.9 Anxiety disorder, unspecified; Z88.0 Allergy status to penicillin; Z88.2 Allergy status to sulfonamides; Z87.891 Personal history of nicotine dependence
CPT/HCPCS: 99211

== ENCOUNTER → 2022-10-05 | Outpatient (CLI) | payer OTHER ==
[2022-10-05 10:32] VITALS: BP 123/80; PULSE 91; RESP 18; TEMP 98.4
--- NOTE | 2022-10-05 15:10 | P.PAINPG ---
PQRS Measure Charge Sheet Comment: A 51 yr old male w at side with a history of severe and chronic LBP secondary to lumbar DDD and spondylosis with facet arthropathy without myelopathy presents today for evaluation s/p BL SI injections. Pt states he experienced 75 % pain relief x 3 wks s/p procedure. Pain level is provoked at 7/10 in intensity, constant, localized in the lumbar spine, grinding, sharp in character w shooting towards the BL hips, buttocks and LEs. Pain is provoked by sitting/ standing/ walking for periods of 15 min or more. Pain is alleviated with massage therapy for years, chiropractic treatments in 2019, home stretching regimen, use of a cane for ambulatory assistance, heat, ice, THC products, repositioning and rest. Interventional pain procedures completed include BL SI injections Patient is currently on THC products Patient denies any side effects of the medication(s), denies excessive drowsiness or sleepiness, denies suicidal ideation and reports that the current pain medication is helping to control the pain and improve activities of daily living. Patient denies any motor or sensory deficits. Patient denies any fever or night sweats, denies any change in the bowel movements or urination. Physical Examination: -Constitutional: Cooperative. Not in acute distress . - Neurologic: Cranial nerve II to XII intact. No focal neurological deficits. - Psychatric: Alert & oriented x 3. Matching mood & appropriate affect. Judgment and insight intact. - Musculoskeletal: Cervical spine: Muscle bulk/ tone/ strength in the bilateral upper extremities normal Vertebral body tenderness to palpation over Spurling test positive Distraction test positive Facet loading test positive TTP Thoracic spine Muscle bulk / tone/ strength in the bilateral paraspinal muscles normal Vertebral body tender to palpation over Facet loading test positive TTP Lumbar spine: Motor bulk/ tone/ strength lower extremities , thigh and legs : 5/5 Deep tendon reflexes : Normal Knee Jerk. Normal Ankle Jerk . Vertebral body tenderness to palpation over L4 Lumbar Facet Loading Test positive Straight Leg Raise: positive at 30 degrees right side/ left side Gaenslen's Test positive Sacral spine : Severe tenderness over the Sacroiliac joint: right side / left side Range of motion: Flexion of the lumbar spine <60 degrees Range of motion: Extension of the lumbar spine <20 degrees Gaenslen's Test positive right side / left side Katey test: positive right side / left side Thigh Thrust Test positive right side / left side Sacral Thrust Test positive right side / left side Assessment and plan: Chronic LBP secondary to lumbar DDD, spondylosis with facet arthropathy without myelopathy Recommendation of RON L4-L5 #1. May need a series fo injections for optimal pain relief. Risks, benefits of procedure discussed and pt verbalized understanding. Admits to anticoagulant use or medical history of diabetes. Protocol for discontinuation/ continuation of medications saige procedure discussed. All questions answered. I have spent less than 30 minutes on patient care today. Dr Kim was available by phone for the evaluation of this patient. The time was used to review the medical records including relevant urine studies and Prescription history (MAPs), review of the available imaging, evaluation and examination of the patient, coordination of care with the medical staff and if applicable referring physicians, as well as creation of the medical record PQRS Narrative: Smoking Status Former smoker Hx Alcohol Use (MH) No Home Medications: Ambulatory Orders Albuterol Sulfate [Albuterol Sulfate Hfa] 2 puff INHALATION RT-Q6H PRN 08/30/22 Losartan Potassium 100 mg PO DAILY 08/30/22 Triamcinolone 0.1% Cream [Kenalog 0.1% Cream] 1 applic TOPICAL DAILY PRN 08/30/22 Metoprolol Tartrate [Lopressor] 50 mg PO BID #60 tab 08/31/22 Atorvastatin [Lipitor] 40 mg PO HS 09/07/22 Meloxicam [Mobic] 15 mg PO DAILY PRN #10 tablet 09/28/22 amLODIPine [Norvasc] 10 mg PO DAILY 09/28/22 Controlled Substance Measures - Controlled Substance Measures Is patient prescribed a controlled substance at discharge?: No
== END ==
LOC: PNWHC3 08:49
PROVIDERS: ATTEND Specialist
DX: M51.36 Other intervertebral disc degeneration, lumbar region (principal); M47.816 Spondylosis without myelopathy or radiculopathy, lumbar region; G89.29 Other chronic pain; Z87.891 Personal history of nicotine dependence; Z88.0 Allergy status to penicillin; Z88.2 Allergy status to sulfonamides
CPT/HCPCS: 99211

== ENCOUNTER → 2022-10-10 | Outpatient (CLI) | payer OTHER ==
--- NOTE | 2022-10-10 10:14 | FL ---
EXAMINATION TYPE: FL sniff test without CXR DATE OF EXAM: 10/10/2022 Comparison: Radiograph 09/28/2022 Clinical History: 51-year-old male with persistent shortness of breath since pneumonia in June 12. J98.6. Abnormal recent chest x-ray. Technique: Real-time fluoroscopy was utilized for assessment of the diaphragm. Quite breathing, deep inspiration expiration, and sniffing maneuver was utilized. Total fluoroscopy time: 30 seconds. Total images: None. Real-time fluoroscopy was performed. Total DAP: 1.5. Findings: There is asymmetric elevation of the right hemidiaphragm. * During normal quite breathing, there is sluggish initiation of movement of the right hemidiaphragm and diminished overall excursion. * Similar findings during deep inspiration expiration. * During sniffing maneuver, there is david paradoxical movement of the right hemidiaphragm. Impression: Positive exam with right hemidiaphragmatic paralysis.
== END | disposition home or self-care (01) ==
LOC: RADFLMAIN 09:16
PROVIDERS: ATTEND Internal Medicine
DX: J98.6 Disorders of diaphragm (principal)
CPT/HCPCS: 76000

== ENCOUNTER 2022-10-27 09:08 | Day surgery (SDC) | payer OTHER ==
[2022-10-27] MEDS ORDERED: LACTATED RINGERS 1,000 ML IV ONE (09:41)
[2022-10-27 09:44] VITALS: TEMP 97.4
[2022-10-27] MEDS ORDERED: methylPREDNISolone ACETATE 80 MG/ML 1 ML VIAL ONE (09:53)
[2022-10-27] MEDS ORDERED: IOPAMIDOL M200 10 ML VIAL ONE (09:53)
[2022-10-27] MEDS ORDERED: fentaNYL (PF) 50 MCG/ML 2 ML AMP ONE (09:53)
[2022-10-27] MEDS ORDERED: MIDAZOLAM 2 MG/2 ML VIAL ONE (09:53)
[2022-10-27] MEDS ORDERED: LACTATED RINGERS 1,000 ML IV SCH (10:00)
--- NOTE | 2022-10-27 10:05 | P.PCN ---
Date of Procedure: 10/27/22 Description of Procedure: Procedure: 1. L4-L5 Epidural steroid injection under fluoroscopic guidance , 2. Lumbar epidurogram PREOPERATIVE DIAGNOSIS: Lumbar degenerative disc disease, and Lumbar radiculopathy. POSTOPERATIVE DIAGNOSIS: Lumbar degenerative disc disease, and Lumbar ra diculopathy. SURGEON: Charlotte Molina ANESTHESIA: Local with 1% lidocaine, and IV sedation: Versed 2 mg, and fentanyl 100 g Sedation supervision start time: 955 Sedation supervision ended time 100 EBL: None. Specimen removed: None Fluoroscopic image: saved to electronic medical records PROCEDURE INDICATION: The patient had history of Lumbar degenerative disc disease and Lumbar radiculopathy. Failed to conservative therapy. Presented for epidural steroid injection. PROCEDURE DESCRIPTION: The patient was seen and identified in the preoperative area. Risks, benefits, complications, and alternatives were discussed with the patient. The patient agreed to proceed with the procedure and signed the consent. IV was started, and vital signs were stable. Patient was taken to the procedure area, and time out was completed. The patient was placed in the prone position on procedure table and a pillow was placed under the abdomen to reduce lumbar lordosis. The lumbosacral area was prepped and draped in the usual sterile fashion. Critical pause was taken. Vital signs were closely monitored during the procedure. Using anterior-posterior fluoroscopy, the L4- L5 interlaminar space was identified, and skin and deeper tissues were localized with 1% lidocaine. Using anterior-posterior fluoroscopy, lateral fluoroscopy, and [id number] technique, a 20 gauge 3.5 Tuohy epidural needle entered the epidural space. After negative aspiration of CSF and blood with no paresthesias, 2 ml of [id number] contrast dye was injected and an excellent epidurogram was seen. Again after negative aspiration of CSF and blood with no paresthesias, 8 mL of block solution was injected into the epidural space. Block solution contained 80 mg of Depo-Medrol, and 6 mL of preservative-free normal saline. Needle was withdrawn intact, skin was cleansed, and bandages were applied. COMPLICATIONS: None. DISPOSITION / PLANS: The patient was placed in a supine position and transferred to the recovery area in a stable condition for observation. Patient was discharged from the recovery room after meeting discharge criteria. Home discharge instructions given to the patient by the staff. The patient was reexamined prior to discharge. The patient will schedule a follow up in the clinic in 4 weeks.
[2022-10-27] MEDS ORDERED: IV FLUID CONTINUATION 1,000 ML IV ONE (10:07)
[2022-10-27 10:12] VITALS: RESP 16
[2022-10-27 10:24] VITALS: BP 104/69; PULSE 50
--- NOTE | 2022-10-27 10:58 | FL ---
EXAMINATION TYPE: FL guided pain mgmt statistic DATE OF EXAM: 10/27/2022 HISTORY: Fluoroscopy time 3 seconds of fluoroscopy provided. DAP [id number] IMPRESSION: 1. Fluoroscopy time.
== END 2022-10-27 10:37 | disposition home or self-care (01) ==
LOC: ORPAIN 09:08
DX: M51.16 Intervertebral disc disorders with radiculopathy, lumbar region (principal); J45.909 Unspecified asthma, uncomplicated; I10 Essential (primary) hypertension; M48.00 Spinal stenosis, site unspecified; Z88.0 Allergy status to penicillin; Z88.2 Allergy status to sulfonamides; Z79.51 Long term (current) use of inhaled steroids; Z86.39 Personal history of other endocrine, nutritional and metabolic disease; Z90.49 Acquired absence of other specified parts of digestive tract; Z98.890 Other specified postprocedural states; Z79.891 Long term (current) use of opiate analgesic; Z79.899 Other long term (current) drug therapy
CPT/HCPCS: 62323; J2250; J1040; J3010; Q9966

== ENCOUNTER → 2022-11-16 | Outpatient (CLI) | payer OTHER ==
--- NOTE | 2022-11-17 14:52 | MR ---
EXAMINATION TYPE: MR abdomen wo/w con DATE OF EXAM: 11/16/2022 COMPARISON: CT abdomen and pelvis September 28, 2022 HISTORY: Abnormal rt diaphragm per CT abd/pelvis, abnormal blood work for adrenals per patient. CONTRAST: Standard multiplanar, multisequence MRI departmental protocol images were obtained without contrast a nd with 15 mL intravenous Gadavist gadolinium contrast. FINDINGS: Elevated right hemidiaphragm is redemonstrated. Gallbladder is surgically absent. Areas of dropout in the liver are suggestive of diffuse fatty infiltration. The spleen and pancreas appear wit hin normal limits. No adrenal mass is seen. No suspicious solid or cystic renal mass or hydronephrosi s. No suspicious bowel dilatation. Osseous structures are intact. No intra-abdominal ascites. No AAA. IMPRESSION: No adrenal masses. No acute findings are evident.
== END | disposition home or self-care (01) ==
LOC: RADMRIMAIN 08:18
PROVIDERS: ATTEND Internal Medicine
DX: J98.6 Disorders of diaphragm (principal)
CPT/HCPCS: 74183; A9585

== ENCOUNTER → 2022-11-17 | Outpatient (CLI) | payer OTHER ==
[2022-11-17 12:12] VITALS: BP 160/88; PULSE 77; RESP 16; TEMP 98
--- NOTE | 2022-11-17 13:53 | P.PAINPG ---
PQRS Measure Charge Sheet Comment: A 52 yr old male with a history of severe and chronic LBP secondary to lumbar DDD and spondylosis with facet arthropathy without myelopathy presents today for evaluation s/p RON L4-L5 . Pt states he experienced 40% pain relief s/p procedure. Pain level is provoked at 8 /10 in intensity, constant, localized in the lower lumbar spine, sharp in character w shooting towards the hips and LEs, R> L. Pain is provoked by any bending, lifting. Pain is alleviated with topicals, injections, heat, ice, chiropractic treatments in 2019, massage therapy almost daily by his /masseuse, repositioning and rest. Interventional pain procedures completed include ORN L4-5, BL SI injection Patient is currently on DENIES Patient denies any side effects of the medication(s), denies excessive drowsiness or sleepiness, denies suicidal ideation and reports that the current pain medication is helping to control the pain and improve activities of daily living. Patient denies any motor or sensory deficits. Patient denies any fever or night sweats, denies any change in the bowel movements or urination. Physical Examination: -Constitutional: Cooperative. Not in acute distress . - Neurologic: Cranial nerve II to XII intact. No focal neurological deficits. - Psychatric: Alert & oriented x 3. Matching mood & appropriate affect. Judgment and insight intact. - Musculoskeletal: Cervical spine: Muscle bulk/ tone/ strength in the bilateral upper extremities normal Vertebral body tenderness to palpation over Spurling test positive Distraction test positive Facet loading test positive TTP Thoracic spine Muscle bulk / tone/ strength in the bilateral paraspinal muscles normal Vertebral body tender to palpation over Facet loading test positive TTP Lumbar spine: Motor bulk/ tone/ strength lower extremities , thigh and legs : 5/5 Deep tendon reflexes : Normal Knee Jerk. Normal Ankle Jerk . Vertebral body tenderness to palpation over L5 Lumbar Facet Loading Test positive Straight Leg Raise: positive at 30 degrees right side/ left side Gaenslen's Test positive Sacral spine : Severe tenderness over the Sacroiliac joint: right side / left side Range of motion: Flexion of the lumbar spine <60 degrees Range of motion: Extension of the lumbar spine <20 degrees Gaenslen's Test positive right side / left side Katey test: positive right side / left side Thigh Thrust Test positive right side / left side Sacral Thrust Test positive right side / left side Assessment and plan: Chronic LBP secondary to lumbar DDD, spondylosis with facet arthropathy without myelopathy Recommendation of BL TFESI L5-S1. May need a series of injections for optimal pain relief. Risks, benefits of procedure discussed and pt verbalized understanding. Admits to anticoagulant use or medical history of diabetes. Protocol for discontinuation/ continuation of medications saige procedure discussed. All questions answered. I have spent less than 30 minutes on patient care today. Dr Kim was available by phone for the evaluation of this patient. The time was used to review the medical records including relevant urine studies and Prescription history (MAPs), review of the available imaging, evaluation and examination of the patient, coordination of care with the medical staff and if applicable referring physicians, as well as creation of the medical record PQRS Narrative: Smoking Status Former smoker Hx Alcohol Use (MH) No Home Medications: Ambulatory Orders Albuterol Sulfate [Albuterol Sulfate Hfa] 2 puff INHALATION RT-Q6H PRN 08/30/22 Losartan Potassium 100 mg PO DAILY 08/30/22 Triamcinolone 0.1% Cream [Kenalog 0.1% Cream] 1 applic TOPICAL DAILY PRN 08/30/22 Atorvastatin [Lipitor] 40 mg PO HS 09/07/22 amLODIPine [Norvasc] 10 mg PO DAILY 09/28/22 Metoprolol Tartrate [Lopressor] 100 mg PO BID 10/25/22 Spironolactone 25 mg PO DAILY 10/25/22 Controlled Substance Measures - Controlled Substance Measures Is patient prescribed a controlled substance at discharge?: No
== END ==
LOC: PNWHC3 09:26
PROVIDERS: ATTEND Specialist
DX: M51.36 Other intervertebral disc degeneration, lumbar region (principal); M47.816 Spondylosis without myelopathy or radiculopathy, lumbar region; G89.29 Other chronic pain; Z87.891 Personal history of nicotine dependence; Z88.0 Allergy status to penicillin; Z88.2 Allergy status to sulfonamides
CPT/HCPCS: 99211

== ENCOUNTER 2022-12-15 09:24 | Day surgery (SDC) | payer OTHER ==
[~2022-12-15 09:24] MED LIST: LACTATED RINGERS 1,000 ML IV SCH; LIDOCAINE 1% (10MG/ML) FOR IV START INTRADERMA PRN
[2022-12-15 09:41] VITALS: RESP 16; TEMP 97.8
[2022-12-15 09:50] LABS: Glucose,Whole Blood 154 mg/dL (70-110)
[2022-12-15] MEDS ORDERED: MIDAZOLAM 2 MG/2 ML VIAL ONE (10:05)
[2022-12-15] MEDS ORDERED: methylPREDNISolone ACETATE 40 MG/ML 1 ML VIAL ONE (10:05)
[2022-12-15] MEDS ORDERED: fentaNYL (PF) 50 MCG/ML 2 ML AMP ONE (10:05)
[2022-12-15] MEDS ORDERED: IOPAMIDOL M200 10 ML VIAL ONE (10:05)
--- NOTE | 2022-12-15 10:17 | P.PCN ---
Date of Procedure: 12/15/22 Procedure(s) Performed: PREOPERATIVE DIAGNOSIS: 1-Lumbar radiculopathy . 2-lumbar degenerative disc disease. 3-lumbar spondylosis with lumbar facet arthropathy without myelopathy POSTOPERATIVE DIAGNOSIS: 1-lumbar radiculopathy. 2-lumbar degenerative disc disease. 3-lumbar spondylosis with facet arthropathy without myelopathy PROCEDURE 1. Transforaminal epidural steroid injection under fluoroscopic guidance at bilateral L5-S1 level. (Fluoroscopy images stored on file in the radiology Department ) 2. Lumbar epidurogram . ANESTHESIA: Local with 1% lidocaine 3 ml , moderate sedation with intravenous Versed 2 mg and fentanyle 100 micrograms. Sedation start time : 1005 . Sedation. stop time : 1014 . EBL: Minimal PROCEDURE INDICATION: The patient with low back pain and radiculopathy symptoms unresponsive to conservative treatment. PROCEDURE DESCRIPTION / TECHNIQUE: The patient was seen and identified in the preoperative area. Risks, benefits, complications, and alternatives were discussed with the patient. The patient agreed to proceed with the procedure and signed the consent. IV was started, and vital signs were stable. Patient was taken to the OR and time out was completed. The patient was placed in the prone position on procedure table and a pillow was placed under the abdomen to reduce lumbar lordosis. The lumbosacral area was prepped and draped in the usual sterile fashion. Critical pause was taken. Vital signs were closely monitored during the procedure. Conscious sedation was used during the procedure to decrease patient s anxiety. Using oblique fluoroscopy, the chin of the ``Scout dog at right L5-S1 level was identified, and the skin and deeper tissues just below was localized with 1% lidocaine. Subsequently, a 22-gauge 5-inch spinal needle was advanced under a tunneled view fluoroscopic guidance just underneath the chin of the ``Scout dog at the right L5-S1 Under lateral fluoroscopy, the needle was then advanced to the posterior border of the interforaminal space. After negative aspiration of CSF and blood and with no paresthesias, 1 mL Isovue 200 contrast dye was injected excellent epidurogram and outlining of the nerve root Subsequently, 3 mL of block solution containing 20 mg Depo-Medrol and 2 mL of 0.9% normal saline PF was injected. Needle was removed and the same procedure was repeated at the left L5-S1 level . At the end of the procedure, skin was cleansed, and bandages were applied. COMPLICATIONS:none DISPOSITION / PLANS: The patient was placed in a supine position and transferred to the recovery area in a stable condition for observation. There was no evidence of lower extremity motor or sensory deficit after the procedure. Patient was discharged from the recovery room after meeting discharge criteria. Home discharge instructions were given to the patient by the staff. The patient was reexamined prior to discharge.
[2022-12-15] MEDS ORDERED: IV FLUID CONTINUATION 800 ML IV ONE (10:19)
[2022-12-15 10:36] VITALS: BP 119/76; PULSE 69
--- NOTE | 2022-12-15 12:29 | FL ---
EXAMINATION TYPE: FL guided pain mgmt statistic DATE OF EXAM: 12/15/2022 CLINICAL HISTORY: Low back pain. TECHNIQUE: Fluoroscopy. COMPARISON: None. FINDINGS: Fluoroscopic guidance was provided during pain relief procedure performed by Dr. Kim . A total of 7.5 seconds of fluoroscopic time was utilized during the procedure and 2 spot images ar e acquired. Images acquired shows needle localization with contrast injection in the lower lumbar sp ine. IMPRESSION: As Above. TOTAL DAP = 0.93424 mGy x m2
== END 2022-12-15 10:49 | disposition home or self-care (01) ==
LOC: ORPAIN 09:24
PROVIDERS: ATTEND Specialist
DX: M51.16 Intervertebral disc disorders with radiculopathy, lumbar region (principal); M47.26 Other spondylosis with radiculopathy, lumbar region
CPT/HCPCS: 64483; J2250; J1030; J3010; Q9966

== ENCOUNTER → 2023-01-04 | Outpatient (CLI) | payer OTHER ==
[2023-01-04 12:09] VITALS: BP 137/86; PULSE 80; RESP 18; TEMP 97.9
--- NOTE | 2023-01-04 15:02 | P.PAINPG ---
PQRS Measure Charge Sheet Comment: A 52 yr old male w at side with a history of severe and chronic LBP secondary to lumbar DDD and spondylosis with facet arthropathy without myelopathy presents today for evaluation s/p BL TFESI L5-S1. Pt states he experienced 75 % pain relief x 3 wks s/p procedure. Pain level is provoked at 9/10 in intensity, constant, localized in the upper lumbar spine, burning, stinging in character w shooting towards the R inner thigh. Pain is provoked by bending, lifting. Pain is alleviated with heat, ice, massages from his semi weekly, chiropractic treatments up until 4 yrs ago as it was ineffective, medications, topical, repositioning and rest. Interventional pain procedures completed include BL TFESI L5-S1 Patient is currently on Voltaren gel Patient denies any side effects of the medication(s), denies excessive drowsiness or sleepiness, denies suicidal ideation and reports that the current pain medication is helping to control the pain and improve activities of daily living. Patient denies any motor or sensory deficits. Patient denies any fever or night sweats, denies any change in the bowel movements or urination. Physical Examination: -Constitutional: Cooperative. Not in acute distress . - Neurologic: Cranial nerve II to XII intact. No focal neurological deficits. - Psychatric: Alert & oriented x 3. Matching mood & appropriate affect. Judgment and insight intact. - Musculoskeletal: Cervical spine: Muscle bulk/ tone/ strength in the bilateral upper extremities normal Vertebral body tenderness to palpation over Spurling test positive Distraction test positive Facet loading test positive TTP Thoracic spine Muscle bulk / tone/ strength in the bilateral paraspinal muscles normal Vertebral body tender to palpation over Facet loading test positive TTP Lumbar spine: Motor bulk/ tone/ strength lower extremities , thigh and legs : 5/5 Deep tendon reflexes : Normal Knee Jerk. Normal Ankle Jerk . Vertebral body tenderness to palpation over L2 +Ellison Test positive Lumbar Facet Loading Test positive Straight Leg Raise: positive at 30 degrees right side/ left side Gaenslen's Test positive Sacral spine : Severe tenderness over the Sacroiliac joint: right side / left side Range of motion: Flexion of the lumbar spine <60 degrees Range of motion: Extension of the lumbar spine <20 degrees Gaenslen's Test positive right side / left side Katey test: positive right side / left side Thigh Thrust Test positive right side / left side Sacral Thrust Test positive right side / left side Assessment and plan: Chronic LBP secondary to lumbar DDD, spondylosis with facet arthropathy without myelopathy Recommendation of RON L2-L3 #1. May need a series of injections for optimal pain relief. Risks, benefits of procedure discussed and pt verbalized understanding. Admits to anticoagulant use or medical history of diabetes. Protocol for discontinuation/ continuation of medications saige procedure discussed. Minimal anesthesia provided, if clinically indicated, consisting of Versed and Fentanyl. All questions answered. I have spent less than 30 minutes on patient care today. Dr Kim was available by phone for the evaluation of this patient. The time was used to review the medical records including relevant urine studies and Prescription history (MAPs), review of the available imaging, evaluation and examination of the patient, coordination of care with the medical staff and if applicable referring physicians, as well as creation of the medical record PQRS Narrative: Smoking Status Former smoker Hx Alcohol Use (MH) No Home Medications: Ambulatory Orders Albuterol Sulfate [Albuterol Sulfate Hfa] 2 puff INHALATION RT-Q6H PRN 08/30/22 Losartan Potassium 100 mg PO DAILY 08/30/22 Triamcinolone 0.1% Cream [Kenalog 0.1% Cream] 1 applic TOPICAL DAILY PRN 08/30/22 Atorvastatin [Lipitor] 40 mg PO HS 09/07/22 amLODIPine [Norvasc] 10 mg PO DAILY 09/28/22 Metoprolol Tartrate [Lopressor] 50 mg PO BID 10/25/22 Spironolactone 25 mg PO DAILY 10/25/22 Fluticasone/Umeclidin/Vilanter [Trelegy Ellipta 200-62.5-25] 1 puff INHALATION HS 12/13/22 Montelukast [Singulair] 10 mg PO HS 12/13/22 metFORMIN HCL 2 tab PO DAILY 12/15/22 Controlled Substance Measures - Controlled Substance Measures Is patient prescribed a controlled substance at discharge?: No
== END ==
LOC: PNWHC3 08:45
PROVIDERS: ATTEND Specialist
DX: M51.36 Other intervertebral disc degeneration, lumbar region (principal); F12.90 Cannabis use, unspecified, uncomplicated; M47.816 Spondylosis without myelopathy or radiculopathy, lumbar region; G89.29 Other chronic pain; Z87.891 Personal history of nicotine dependence; Z88.2 Allergy status to sulfonamides; Z88.0 Allergy status to penicillin
CPT/HCPCS: 99211

== ENCOUNTER 2023-01-26 08:28 | Day surgery (SDC) | payer OTHER ==
[2023-01-20 11:13] VITALS: BMI 41.1
[2023-01-26] MEDS ORDERED: LACTATED RINGERS 1,000 ML IV SCH ×2 (08:43→09:15)
[2023-01-26 08:53] VITALS: RESP 20; TEMP 97.6
[2023-01-26 08:53] LABS: Glucose,Whole Blood 103 mg/dL (70-110)
[2023-01-26] MEDS ORDERED: methylPREDNISolone ACETATE 40 MG/ML 1 ML VIAL ONE (09:16)
[2023-01-26] MEDS ORDERED: IOPAMIDOL M200 10 ML VIAL ONE (09:16)
--- NOTE | 2023-01-26 09:24 | P.PCN ---
Date of Procedure: 01/26/23 Description of Procedure: Procedure: 1. L2-L3 Epidural steroid injection under fluoroscopic guidance , 2. Lumbar epidurogram PREOPERATIVE DIAGNOSIS: Lumbar degenerative disc disease, and Lumbar radiculopathy. POSTOPERATIVE DIAGNOSIS: Lumbar degenerative disc disease, and Lumbar radiculopathy. SURGEON: Charlotte Molina ANESTHESIA: Local with 1% lidocaine, and IV sedation: None EBL: None. Specimen removed: None Fluoroscopic image: saved to electronic medical records PROCEDURE INDICATION: The patient had history of Lumbar degenerative disc disease and Lumbar radiculopathy. Failed to conservative therapy. Presented for epidural steroid injection. PROCEDURE DESCRIPTION: The patient was seen and identified in the preoperative area. Risks, benefits, complications, and alternatives were discussed with the patient. The patient agreed to proceed with the procedure and signed the consent.and vital signs were stable. Patient was taken to the procedure area, and time out was completed. The patient was placed in the prone position on procedure table and a pillow was placed under the abdomen to reduce lumbar lordosis. The lumbosacral area was prepped and draped in the usual sterile fashion. Critical pause was taken. Vital signs were closely monitored during the procedure. Using anterior-posterior fluoroscopy, the right sided L2-L3 interlaminar space was identified, and skin and deeper tissues were localized with 1% lidocaine. Using anterior-posterior fluoroscopy, lateral fluoroscopy, and [id number] technique, a 20 gauge 3.5 Tuohy epidural needle entered the epidural space. After negative aspiration of CSF and blood with no paresthesias, 1 ml of Gnlsjp122 contrast dye was injected and an excellent epidurogram was seen. Again after negative aspiration of CSF and blood with no paresthesias, 8 mL of block solution was injected into the epidural space. Block solution contained 40 mg of Depo-Medrol, and 7 mL of preservative-free normal saline. Needle was withdrawn intact, skin was cleansed, and bandages were applied. COMPLICATIONS: None. DISPOSITION / PLANS: The patient was placed in a supine position and transferred to the recovery area in a stable condition for observation. Patient was discharged from the recovery room after meeting discharge criteria. Home discharge instructions given to the patient by the staff. The patient was reexamined prior to discharge. The patient will schedule a follow up in the clinic in 4 weeks.
--- NOTE | 2023-01-26 09:32 | FL ---
EXAMINATION TYPE: FL guided pain mgmt statistic DATE OF EXAM: 01/26/2023 HISTORY: Fluoroscopy time Total dose area product (DAP) in uGy*m?, mGy*cm? (or similar): 0.62526 IMPRESSION: 1. Fluoroscopy time.
[2023-01-26 09:49] VITALS: BP 107/67; PULSE 66
== END 2023-01-26 09:50 | disposition home or self-care (01) ==
LOC: ORPAIN 08:28
DX: M51.16 Intervertebral disc disorders with radiculopathy, lumbar region (principal); I10 Essential (primary) hypertension; E11.9 Type 2 diabetes mellitus without complications; E78.00 Pure hypercholesterolemia, unspecified; Z79.84 Long term (current) use of oral hypoglycemic drugs; Z79.85 Long-term (current) use of injectable non-insulin antidiabetic drugs; Z79.899 Other long term (current) drug therapy; F12.90 Cannabis use, unspecified, uncomplicated; Z88.0 Allergy status to penicillin; Z88.2 Allergy status to sulfonamides
CPT/HCPCS: 62323; J1030; Q9966

== ENCOUNTER 2023-02-08 16:13 | Emergency (ER) | payer OTHER ==
[2023-02-08 20:30] LABS: Basophils % (A) 0 %; Eosinophils # (A) 0.2 k/uL (0-0.7); Eosinophils % (A) 2 %; HCT 45.2 % (39.0-53.0); HGB 15.1 gm/dL (13.0-17.5); Lymphocytes # (A) 2.6 k/uL (1.0-4.8); Lymphocytes % (A) 26 %; MCH 29.4 pg (25.0-35.0); MCHC 33.5 g/dL (31.0-37.0); MCV 87.6 fL (80.0-100.0); Mean Platelet Volume 9.6; Monocytes # (A) 0.6 k/uL (0-1.0); Monocytes % (A) 6 %; Neutrophils # (A) 6.4 k/uL (1.3-7.7); Neutrophils % (A) 64 %; Platelet Count 244 k/uL (150-450); RBC 5.15 m/uL (4.30-5.90)
[2023-02-08 20:39] LABS: Prothrombin Time 10.9 sec (9.0-12.0)
[2023-02-08 20:44] LABS: ALT 23 U/L (4-49); AST 27 U/L (17-59); African American GFR (CKD) >90 (>60 ml/min/1.73 sqM); Albumin 4.3 g/dL (3.5-5.0); Alkaline Phosphatase 81 U/L (38-126); Anion Gap 10 mmol/L; Blood Urea Nitrogen 10 mg/dL (9-20); Calcium 9.1 mg/dL (8.4-10.2); Carbon Dioxide 22 mmol/L (22-30); Chloride 105 mmol/L (98-107); Glucose 83 mg/dL (74-99); Non-African American GFR(CKD) >90 (>60 ml/min/1.73 sqM); Potassium 4.1 mmol/L (3.5-5.1); Sodium 137 mmol/L (137-145); Total Bilirubin 0.8 mg/dL (0.2-1.3); Total Protein 7.8 g/dL (6.3-8.2)
[2023-02-08 20:53] LABS: Appearance,Urine Clear (Clear); Bilirubin,Urine Negative (Negative); Blood,Urine Negative (Negative); Color,Urine Yellow; Glucose,Urine (UA) Negative (Negative); Ketones,Urine 1+ (Negative); Leukocyte Esterase,Urine Negative (Negative); Nitrite,Urine Negative (Negative); PH, Urine 5.5 (5.0-8.0); Protein,Urine Trace (Negative); Specific Gravity,Urine 1.024 (1.001-1.035); Urobilinogen,Urine <2.0 mg/dL (<2.0)
[2023-02-08] MEDS ORDERED: MAG HYDROX/AL HYDROX/SIMETH 30 ML, HYOSCYAMINE ELIXIR 10 ML, LIDOCAINE 2% GLYDO JELLY 1... PO STA ×3 (20:53)
[2023-02-08 21:15] VITALS: BP 155/98; RESP 16
--- NOTE | 2023-02-08 21:46 | ED ---
General Adult HPI - General Chief complaint: Dizziness Stated complaint: Dizziness, nausea Time Seen by Provider: 02/08/23 18:30 Source: patient Mode of arrival: ambulatory Limitations: no limitations - History of Present Illness Onset/Timin -: days(s) Location: chest Radiation: non-radiation Quality: dull Consistency: constant Improves with: none Worsens with: none Associated Symptoms: nausea/vomiting Treatments Prior to Arrival: none - Related Data Home Medications Medication Instructions Recorded Confirmed Albuterol Sulfate [Albuterol 2 puff INHALATION RT-Q6H PRN 08/30/22 01/26/23 Sulfate Hfa] Losartan Potassium 100 mg PO DAILY 08/30/22 01/20/23 Triamcinolone 0.1% Cream [Kenalog 1 applic TOPICAL DAILY PRN 08/30/22 01/26/23 0.1% Cream] Atorvastatin [Lipitor] 40 mg PO HS 09/07/22 01/20/23 amLODIPine [Norvasc] 10 mg PO DAILY 09/28/22 01/20/23 Metoprolol Tartrate [Lopressor] 50 mg PO BID 10/25/22 01/20/23 Spironolactone 25 mg PO DAILY 10/25/22 01/20/23 Fluticasone/Umeclidin/Vilanter 1 puff INHALATION HS 12/13/22 01/26/23 [Trelegy Ellipta 200-62.5-25] Montelukast [Singulair] 10 mg PO HS 12/13/22 01/20/23 metFORMIN HCL 1,000 tab PO W/SUPPER 12/15/22 01/20/23 Dulaglutide [Trulicity] 0.75 mg SQ TU 01/20/23 01/26/23 Allergies Allergy/AdvReac Type Severity Reaction Status Date / Time Penicillins Allergy Hives all Verified 02/08/23 17:05 over Sulfa (Sulfonamide AdvReac Leg cramps Verified 02/08/23 17:05 Antibiotics) sulfamethoxazole AdvReac LEG CRAMPS Verified 02/08/23 17:05 [From Bactrim] trimethoprim [From Bactrim] AdvReac LEG CRAMPS Verified 02/08/23 17:05 Review of Systems ROS Statement: Those systems with pertinent positive or pertinent negative responses have been documented in the HPI. ROS Other: All systems not noted in ROS Statement are negative. Constitutional: Denies: fever, chills Respiratory: Denies: cough, dyspnea Cardiovascular: Reports: chest pain. Denies: palpitations, dyspnea on exertion, edema, syncope Gastrointestinal: Reports: nausea, vomiting. Denies: abdominal pain, diarrhea, melena, hematochezia Genitourinary: Denies: dysuria, hematuria Musculoskeletal: Denies: back pain Skin: Denies: rash Neurological: Denies: headache, weakness, numbness Past Medical History Past Medical History: Asthma, Chest Pain / Angina, Diabetes Mellitus, G ERD/Reflux, Hyperlipidemia, Hypertension, Skin Disorder Additional Past Medical History / Comment(s): EPISODES OF PASSING OUT- HAD LOOP RECORDER AND CARDIAC TESTING AND PT STATES IT WAS NEGATIVE., IBS, ROSACEA, ARTHRITIS RIGHT KNEE, elevated diaphragm, adrenal gland TUMOR -DENIES History of Any Multi-Drug Resistant Organisms: None Reported Past Surgical History: Appendectomy, Cholecystectomy, Heart Catheterization, Hernia Repair, Orthopedic Surgery Additional Past Surgical History / Comment(s): loop recorder implanted 2005 and removed., ep studies,colonoscopy/egd,umbilical and hiatal hernia repair, fx jaw, rt knee arthroscopy. [facility], PAIN CLINIC PROCEDURE Past Anesthesia/Blood Transfusion Reactions: No Reported Reaction Additional Past Anesthesia/Blood Transfusion Reaction / Comment(s): CLAUSTROPHOBIC Past Psychological History: Anxiety Smoking Status: Former smoker Past Alcohol Use History: None Reported Past Drug Use History: None Reported - Past Family History Father Family Medical History: Cancer, Hypertension Mother Family Medical History: Chest Pain / Angina, Hypertension Additional Family Medical History / Comment(s): from stroke General Exam Limitations: no limitations General appearance: alert, in no apparent distress Head exam: Present: atraumatic, normocephalic Eye exam: Present: normal appearance. Absent: scleral icterus, conjunctival injection ENT exam: Present: normal oropharynx Neck exam: Present: normal inspection Respiratory exam: Present: normal lung sounds bilaterally. Absent: respiratory distress, wheezes, rales, rhonchi, stridor, chest wall tenderness Cardiovascular Exam: Present: regular rate, normal rhythm, normal heart sounds. Absent: systolic murmur, diastolic murmur, rubs, gallop GI/Abdominal exam: Present: soft. Absent: distended, tenderness, guarding, rebound, rigid, mass Extremities exam: Present: normal inspection Back exam: Present: normal inspection. Absent: CVA tenderness (R), CVA tenderness (L) Neurological exam: Present: alert Skin exam: Present: warm, dry, intact, normal color. Absent: rash Course Vital Signs 02/08/23 02/08/23 02/08/23 17:00 20:00 21:23 Temperature 99 F Pulse Rate 80 80 Respiratory 18 16 Rate Blood Pressure 152/93 155/98 O2 Sat by Pulse 97 97 Oximetry 02/08/23 21:59 Temperature 98.7 F Pulse Rate 68 Respiratory 16 Rate Blood Pressure 155/98 O2 Sat by Pulse 97 Oximetry EKG Findings - EKG Results: EKG: interpreted by ERMD, sinus rhythm (Rate 62 bpm), normal axis (Normal), normal ST/T - Blocks, [place], Hypertrophy, ST Abn: AV and intraventricular conduction: intraventricular conduction delay (QRS 125 ms) Medical Decision Making - Medical Decision Making This patient is a 52-year-old man presenting with chest pain. He had been seen in the clinic and sent over for further evaluation. The patient was feeling better here and wanted to go home. I did recommend that he stay given presence of risk factor, but the patient states that he is much better and would like to go. I explained that I was recommending he stay for telemetry monitoring, serial cardiac enzymes and cardiology consultation. He does agree to return if symptoms recur. He does understand that there are risks associated with leaving. Was pt. sent in by a medical professional or institution (, PA, LOG MARKER, urgent care, hospital, or group home...) When possible be specific @ -Patient sent from the clinic to have further evaluation for chest pain Did you speak to anyone other than the patient for history (EMS, parent, family, police, friend...)? What history was obtained from this source @ -[No] Did you review nursing and triage notes (agree or disagree)? Why? @ -[I reviewed and agree with nursing and triage notes] Were old charts reviewed (outside hosp., previous admission, EMS record, old EKG, old radiological studies, urgent care reports/EKG's, group home records)? Report findings @ -[No old charts were reviewed] Differential Diagnosis (chest pain, altered mental status, abdominal pain women, abdominal pain men, vaginal bleeding, weakness, fever, dyspnea, syncope, headache, dizziness, GI bleed, back pain, seizure, CVA, palpatations, mental health, musculoskeletal)? @ -[Differential Chest Pain: Stable Angina, Unstable Angina, STEMI, NSTEMI Aortic Dissection, Pneumothorax, Musculoskeletal, Esophageal Spasm GERD, Cholecystitis, Pancreatitis, Zoster, this is not meant to be an all-inclusive list. EKG interpreted by me (3pts min.). @ -[As above] X-rays interpreted by me (1pt min.). @ - CT interpreted by me (1pt min.). @ -[None done] U/S interpreted by me (1pt. min.). @ -[None done] What testing was considered but not performed or refused? (CT, X-rays, U/S, labs)? Why? @ -[I had wanted to have chest x-ray, serial cardiac enzymes and telemetry monitoring but the patient wanted to leave AGAINST MEDICAL ADVICE What meds were considered but not given or refused? Why? @ -[None] Did you discuss the management of the patient with other professionals (professionals i.e. , PA, LOG MARKER, lab, RT, psych nurse, social service worker, bag machine operator, teacher, mortgage loan officer originator, bilingual case manager)? Give summary @ -[No] Was smoking cessation discussed for >3mins.? @ -[No] Was critical care preformed (if so, how long)? @ -[No] Were there social determinants of health that impacted care today? How? (Homelessness, low income, unemployed, alcoholism, drug addiction, transportatio n, low edu. Level, literacy, decrease access to med. care, correction, rehab)? @ -[No] Was there de-escalation of care discussed even if they declined (Discuss DNR or withdrawal of care, Hospice)? DNR status @ -[No] What co-morbidities impacted this encounter? (DM, HTN, Smoking, COPD, CAD, Cancer, CVA, ARF, Chemo, Hep., AIDS, mental health diagnosis, sleep apnea, morbid obesity)? @ -[Diabetes and hypertension Was patient admitted / discharged? Hospital course, mention meds given and rout e, prescriptions, significant lab abnormalities, going to OR and other pertinent info. @ -[The patient left AGAINST MEDICAL ADVICE, as above Undiagnosed new problem with uncertain prognosis? @ -[No] Drug Therapy requiring intensive monitoring for toxicity (Heparin, Nitro, Insulin, Cardizem)? @ -[No] Were any procedures done? @ -[No] Diagnosis/symptom? @ -[Acute chest pain Acute, or Chronic, or Acute on Chronic? @ -[Acute Uncomplicated (without systemic symptoms) or Complicated (systemic symptoms)? @ -[Uncomplicated Side effects of treatment? @ -[No] Exacerbation, Progression, or Severe Exacerbation? @ -[No] Poses a threat to life or bodily function? How? (Chest pain, [place], [place], pneumonia, PE, COPD, DKA, ARF, appy, cholecystitis, CVA, Diverticulitis, Homicidal, Suicidal, threat to staff... and all critical care pts) @ -[Undetermined at this point however chest pain of cardiac etiology certainly may progress to [place]/ - Lab Data Result diagrams: 02/08/23 20:09 02/08/23 20:09 Lab Results 02/08/23 02/08/23 02/08/23 Range/Units 20:05 20:05 20:09 WBC 10.0 (3.8-10.6) k/uL RBC 5.15 (4.30-5.90) m/uL Hgb 15.1 (13.0-17.5) gm/dL Hct 45.2 (39.0-53.0) % MCV 87.6 (80.0-100.0) fL MCH 29.4 (25.0-35.0) pg MCHC 33.5 (31.0-37.0) g/dL RDW 13.0 (11.5-15.5) % Plt Count 244 (150-450) k/uL MPV 9.6 Neutrophils % 64 % Lymphocytes % 26 % Monocytes % 6 % Eosinophils % 2 % Basophils % 0 % Neutrophils # 6.4 (1.3-7.7) k/uL Lymphocytes # 2.6 (1.0-4.8) k/uL Monocytes # 0.6 (0-1.0) k/uL Eosinophils # 0.2 (0-0.7) k/uL Basophils # 0.0 (0-0.2) k/uL PT (9.0-12.0) sec INR (<1.2) Sodium (137-145) mmol/L Potassium (3.5-5.1) mmol/L Chloride (98-107) mmol/L Carbon Dioxide (22-30) mmol/L Anion Gap mmol/L BUN (9-20) mg/dL Creatinine (0.66-1.25) mg/dL Est GFR (CKD-EPI)AfAm (>60 ml/min/1.73 sqM) Est GFR (CKD-EPI)NonAf (>60 ml/min/1.73 sqM) Glucose (74-99) mg/dL Plasma Lactic Acid Wayne 0.8 (0.7-2.0) mmol/L Calcium (8.4-10.2) mg/dL Total Bilirubin (0.2-1.3) mg/dL AST (17-59) U/L ALT (4-49) U/L Alkaline Phosphatase (38-126) U/L Troponin I (0.000-0.034) ng/mL Total Protein (6.3-8.2) g/dL Albumin (3.5-5.0) g/dL Urine Color Yellow Urine Appearance Clear (Clear) Urine pH 5.5 (5.0-8.0) Ur Specific Hubbard 1.024 (1.001-1.035) Urine Protein Trace H (Negative) Urine Glucose (UA) Negative (Negative) Urine Ketones 1+ H (Negative) Urine Blood Negative (Negative) Urine Nitrite Negative (Negative) Urine Bilirubin Negative (Negative) Urine Urobilinogen <2.0 (<2.0) mg/dL Ur Leukocyte Esterase Negative (Negative) 02/08/23 02/08/23 02/08/23 Range/Units 20:09 20:09 20:09 WBC (3.8-10.6) k/uL RBC (4.30-5.90) m/uL Hgb (13.0-17.5) gm/dL Hct (39.0-53.0) % MCV (80.0-100.0) fL MCH (25.0-35.0) pg MCHC (31.0-37.0) g/dL RDW (11.5-15.5) % Plt Count (150-450) k/uL MPV Neutrophils % % Lymphocytes % % Monocytes % % Eosinophils % % Basophils % % Neutrophils # (1.3-7.7) k/uL Lymphocytes # (1.0-4.8) k/uL Monocytes # (0-1.0) k/uL Eosinophils # (0-0.7) k/uL Basophils # (0-0.2) k/uL PT 10.9 (9.0-12.0) sec INR 1.0 (<1.2) Sodium 137 (137-145) mmol/L Potassium 4.1 (3.5-5.1) mmol/L Chloride 105 (98-107) mmol/L Carbon Dioxide 22 (22-30) mmol/L Anion Gap 10 mmol/L BUN 10 (9-20) mg/dL Creatinine 0.73 (0.66-1.25) mg/dL Est GFR (CKD-EPI)AfAm >90 (>60 ml/min/1.73 sqM) Est GFR (CKD-EPI)NonAf >90 (>60 ml/min/1.73 sqM) Glucose 83 (74-99) mg/dL Plasma Lactic Acid Wayne (0.7-2.0) mmol/L Calcium 9.1 (8.4-10.2) mg/dL Total Bilirubin 0.8 (0.2-1.3) mg/dL AST 27 (17-59) U/L ALT 23 (4-49) U/L Alkaline Phosphatase 81 (38-126) U/L Troponin I <0.012 (0.000-0.034) ng/mL Total Protein 7.8 (6.3-8.2) g/dL Albumin 4.3 (3.5-5.0) g/dL Urine Color Urine Appearance (Clear) Urine pH (5.0-8.0) Ur Specific Hubbard (1.001-1.035) Urine Protein (Negative) Urine Glucose (UA) (Negative) Urine Ketones (Negative) Urine Blood (Negative) Urine Nitrite (Negative) Urine Bilirubin (Negative) Urine Urobilinogen (<2.0) mg/dL Ur Leukocyte Esterase (Negative) Disposition Clinical Impression: Chest pain Disposition: LEFT AGAINST MEDICAL ADVICE Condition: Undetermined Instructions (If sedation given, give patient instructions): Chest Pain (ED), Dizziness (ED) Is patient prescribed a controlled substance at d/c from ED?: No Referrals: Norm Davis MD [Primary Care Provider] - 1-2 days
[2023-02-08 22:02] VITALS: PULSE 68; TEMP 98.7
== END 2023-02-08 22:06 | disposition left against medical advice (07) ==
LOC: EC 16:13
DX: R07.89 Other chest pain (principal); J45.909 Unspecified asthma, uncomplicated; E11.9 Type 2 diabetes mellitus without complications; E78.5 Hyperlipidemia, unspecified; I10 Essential (primary) hypertension; Z86.59 Personal history of other mental and behavioral disorders; Z87.891 Personal history of nicotine dependence; Z79.51 Long term (current) use of inhaled steroids; Z79.899 Other long term (current) drug therapy; Z79.84 Long term (current) use of oral hypoglycemic drugs; Z88.0 Allergy status to penicillin; Z88.1 Allergy status to other antibiotic agents; Z88.2 Allergy status to sulfonamides; Z53.29 Procedure and treatment not carried out because of patient's decision for other reasons; Z79.85 Long-term (current) use of injectable non-insulin antidiabetic drugs
CPT/HCPCS: 36415; 80053; 81003; 83605; 84484; 85025; 85610; 93005; 99284

== ENCOUNTER → 2023-03-21 | Day surgery (SDC) | payer OTHER ==
[2023-03-15 15:41] VITALS: BMI 38.7
[~2023-03-21] MED LIST changes: +LACTATED RINGERS 1,000 ML IV ONE; +LIDOCAINE 2% INJ 20 MG/ML (2 ML VIAL) ONE; +PROPOFOL 10 MG/ML 20 ML VIAL IV ONE
[2023-03-21 08:35] VITALS: RESP 16; TEMP 97
[2023-03-21 08:37] LABS: Glucose,Whole Blood 131 mg/dL (70-110)
--- NOTE | 2023-03-21 08:43 | P.GSHP ---
History of Present Illness H&P Date: 03/21/23 Chief Complaint: Screening, frequent vomiting, reflux 53-year-old male here for upper and lower endoscopy. Patient has not had a colonoscopy for last 7-8 years. Last one was normal. No bowel complaints. No rectal bleeding. No family history of colon cancer. Patient has frequent episodes of emesis in the morning. Most days. Usually phlegm and mucus. Past Medical History Past Medical History: Asthma, Chest Pain / Angina, Diabetes Mellitus, GERD/Reflux, Hyperlipidemia, Hypertension, Skin Disorder Additional Past Medical History / Comment(s): EPISODES OF PASSING OUT- HAD LOOP RECORDER AND CARDIAC TESTING AND PT STATES IT WAS NEGATIVE., IBS, ROSACEA, ARTHRITIS RIGHT KNEE, elevated diaphragm, adrenal gland TUMOR -DENIES History of Any Multi-Drug Resistant Organisms: None Reported Past Surgical History: Appendectomy, Cholecystectomy, EPS, Heart Catheterization, Hernia Repair, Orthopedic Surgery Additional Past Surgical History / Comment(s): loop recorder implanted 2005 and removed., colonoscopy/egd,umbilical and hiatal hernia repair, fx jaw, rt knee arthroscopy. [facility], PAIN CLINIC PROCEDURE Past Anesthesia/Blood Transfusion Reactions: No Reported Reaction Additional Past Anesthesia/Blood Transfusion Reaction / Comment(s): CLAUSTROPHOBIC Smoking Status: Former smoker - Past Family History Father Family Medical History: Cancer, Hypertension Mother Family Medical History: Chest Pain / Angina, Hypertension Additional Family Medical History / Comment(s): from stroke Medications and Allergies Home Medications Medication Instructions Recorded Confirmed Type Albuterol Sulfate [Albuterol 2 puff INHALATION RT-Q6H PRN 08/30/22 03/21/23 History Sulfate Hfa] Losartan Potassium 100 mg PO DAILY 08/30/22 03/21/23 History Atorvastatin [Lipitor] 40 mg PO HS 09/07/22 03/21/23 History Metoprolol Tartrate [Lopressor] 50 mg PO BID 10/25/22 03/21/23 History Spironolactone 25 mg PO DAILY 10/25/22 03/21/23 History Fluticasone/Umeclidin/Vilanter 1 puff INHALATION HS 12/13/22 03/21/23 History [Trelegy Ellipta 200-62.5-25] Montelukast [Singulair] 10 mg PO HS 12/13/22 03/21/23 History metFORMIN HCL 1,000 tab PO W/SUPPER 12/15/22 03/21/23 History Dulaglutide [Trulicity] 0.75 mg SQ TU 01/20/23 03/21/23 History Omeprazole 40 mg PO DAILY 03/15/23 03/21/23 History amLODIPine [Norvasc] 5 mg PO DAILY 03/15/23 03/21/23 History Allergies Allergy/AdvReac Type Severity Reaction Status Date / Time Penicillins Allergy Hives all Verified 03/21/23 08:31 over Sulfa (Sulfonamide AdvReac Leg cramps Verified 03/21/23 08:31 Antibiotics) sulfamethoxazole AdvReac LEG CRAMPS Verified 03/21/23 08:31 [From Bactrim] trimethoprim [From Bactrim] AdvReac LEG CRAMPS Verified 03/21/23 08:31 Surgical - Exam Vital Signs Temp Pulse Resp BP Pulse Ox 97.0 F L 93 16 159/87 94 L 03/21/23 08:33 03/21/23 08:33 03/21/23 08:33 03/21/23 08:33 03/21/23 08:33 Physical exam: General: Well-developed, well-nourished HEENT: Normocephalic, sclerae nonicteric Abdomen: Nontender, nondistended Extremities: No edema Neuro: Alert and oriented Results - Labs Abnormal Lab Results - Last 24 Hours (Table) 03/21/23 Range/Units 08:33 POC Glucose (mg/dL) 131 H (70-110) mg/dL Assessment and Plan (1) Colon cancer screening Narrative/Plan: Will proceed with upper and lower endoscopy. Current Visit: Yes Status: Acute Code(s): Z12.11 - ENCOUNTER FOR SCREENING FOR MALIGNANT NEOPLASM OF COLON SNOMED Code(s): 216617372
--- NOTE | 2023-03-21 08:57 | P.PCN ---
Date of Procedure: 03/21/23 Procedure(s) Performed: PREOPERATIVE DIAGNOSIS: Screening, GERD, vomiting POSTOPERATIVE DIAGNOSIS: Gastritis, small hiatal hernia, normal colon PROCEDURE: 1. EGD with biopsy 2. Colonoscopy ANESTHESIA: MAC SURGEON: Wing Malloy M.D. SPECIMENS: Antrum ENDOSCOPIC PROCEDURE: The patient was on the endoscopy table in the left decubitus position. The Olympus gastroscope was inserted into the oropharynx and passed under direct visualization to the region of the third portion of the duodenum. From that point the scope was slowly withdrawn inspecting all surfaces carefully. There were no neoplastic inflammatory or polypoid lesions throughout the duodenum. The pylorus was widely patent. The stomach was carefully inspected. There was mild gastritis present. A biopsy of the antrum took place to rule out H. pylori. Retroflexion revealed a small 1.5 cm hiatal hernia. The esophagus was then carefully examined. There were no neoplastic inflammatory or polypoid lesions throughout the visualized esophagus. The patient was kept on the endoscopy table in the left decubitus position. The Olympus colonoscope was inserted into the anus and passed under direct visualization to the base of the cecum. The appendiceal orifice was visualized. From that point the scope was slowly withdrawn inspecting all surfaces carefully. There were no neoplastic inflammatory or polypoid lesions throughout the cecum, ascending, transverse, descending, sigmoid and rectum. There was no visible diverticulosis noted. Digital rectal examination was normal. The patient was taken to the recovery room in stable condition per anesthesia guidelines. RECOMMENDATIONS: Resume diet. Repeat colonoscopy in 10 years. Etiology for frequent vomiting unclear. Could be on the basis of gastroparesis or slow gastric emptying secondary to diabetic medications.
[2023-03-21 09:19] VITALS: BP 138/89; PULSE 73
[2023-03-21 09:25] LABS: Glucose,Whole Blood 117 mg/dL (70-110)
== END ==
LOC: ORWHC2ENDO 08:09
PROVIDERS: ATTEND Surgery
DX: K29.50 Unspecified chronic gastritis without bleeding (principal); K58.9 Irritable bowel syndrome, unspecified; K44.9 Diaphragmatic hernia without obstruction or gangrene; E11.9 Type 2 diabetes mellitus without complications; K21.9 Gastro-esophageal reflux disease without esophagitis; E78.5 Hyperlipidemia, unspecified; I10 Essential (primary) hypertension; J45.909 Unspecified asthma, uncomplicated; Z87.891 Personal history of nicotine dependence; Z90.49 Acquired absence of other specified parts of digestive tract; Z88.0 Allergy status to penicillin; Z88.2 Allergy status to sulfonamides; Z88.1 Allergy status to other antibiotic agents; Z79.02 Long term (current) use of antithrombotics/antiplatelets; Z79.899 Other long term (current) drug therapy; Z79.84 Long term (current) use of oral hypoglycemic drugs; Z79.51 Long term (current) use of inhaled steroids; Z98.890 Other specified postprocedural states; Z80.9 Family history of malignant neoplasm, unspecified; Z82.49 Family history of ischemic heart disease and other diseases of the circulatory system
CPT/HCPCS: 88305; 45378; 43239; J2704; J2001

== ENCOUNTER → 2023-03-30 | Outpatient (CLI) | payer OTHER ==
[2023-03-30 14:18] VITALS: BP 141/100; PULSE 89; RESP 15; TEMP 98.2
--- NOTE | 2023-03-30 14:28 | P.PAINPG ---
PQRS Measure Charge Sheet Comment: A 52 yr old male w at side with a history of severe and chronic LBP secondary to lumbar DDD and spondylosis with facet arthropathy without myelopathy presents today for evaluation s/p RON L2-L3. Pt states he experienced 90% pain relief x 6 wks s/p procedure. Pain level is provoked at 9/10 in intensity, constant, localized in the upper lumbar spine, burning, stinging in character w shooting towards the R inner thigh. Pain is provoked by bending, lifting. Pain is alleviated with heat, ice, massages from his semi weekly, chiropractic treatments up until 4 yrs ago as it was ineffective, medications, topical, repositioning and rest. Oswestry axial pain score of 24. Interventional pain procedures completed include BL TFESI L5-S1, RON L2-L3 x1 Patient is currently on Voltaren gel Patient denies any side effects of the medication(s), denies excessive drowsiness or sleepiness, denies suicidal ideation and reports that the current pain medication is helping to control the pain and improve activities of daily living. Patient denies any motor or sensory deficits. Patient denies any fever or night sweats, denies any change in the bowel movements or urination. Physical Examination: -Constitutional: Cooperative. Not in acute distress . - Neurologic: Cranial nerve II to XII intact. No focal neurological deficits. - Psychatric: Alert & oriented x 3. Matching mood & appropriate affect. Judgment and insight intact. - Musculoskeletal: Cervical spine: Muscle bulk/ tone/ strength in the bilateral upper extremities normal Vertebral body tenderness to palpation over Spurling test positive Distraction test positive Facet loading test positive TTP Thoracic spine Muscle bulk / tone/ strength in the bilateral paraspinal muscles normal Vertebral body tender to palpation over Facet loading test positive TTP Lumbar spine: Motor bulk/ tone/ strength lower extremities , thigh and legs : 5/5 Deep tendon reflexes : Normal Knee Jerk. Normal Ankle Jerk . Vertebral body tenderness to palpation over L5 +Ellison Test positive Lumbar Facet Loading Test positive Straight Leg Raise: positive at 30 degrees right side> left side Gaenslen's Test positive Sacral spine : Severe tenderness over the Sacroiliac joint: right side / left side Range of motion: Flexion of the lumbar spine <60 degrees Range of motion: Extension of the lumbar spine <20 degrees Gaenslen's Test positive right side / left side Katey test: positive right side / left side Thigh Thrust Test positive right side / left side Sacral Thrust Test positive right side / left side Assessment and plan: Chronic LBP secondary to lumbar DDD, spondylosis with facet arthropathy without myelopathy Recommendation of PT x 6 wks Dx M51.36 and RON L5-S1. May need a series of injections for optimal pain relief. Risks, benefits of procedure discussed and pt verbalized understanding. Admits to anticoagulant use or medical history of diabetes. Protocol for discontinuation/ continuation of medications saige procedure discussed. Minimal anesthesia provided, if clinically indicated, consisting of Versed and Fentanyl. All questions answered. I have spent less than 30 minutes on patient care today. Dr Kim was available by phone for the evaluation of this patient. The time was used to rev iew the medical records including relevant urine studies and Prescription history (MAPs), review of the available imaging, evaluation and examination of the patient, coordination of care with the medical staff and if applicable referring physicians, as well as creation of the medical record PQRS Narrative: Smoking Status Former smoker Hx Alcohol Use (MH) No Home Medications: Ambulatory Orders Albuterol Sulfate [Albuterol Sulfate Hfa] 2 puff INHALATION RT-Q6H PRN 08/30/22 Losartan Potassium 100 mg PO DAILY 08/30/22 Atorvastatin [Lipitor] 40 mg PO HS 09/07/22 Metoprolol Tartrate [Lopressor] 50 mg PO BID 10/25/22 Spironolactone 25 mg PO DAILY 10/25/22 Fluticasone/Umeclidin/Vilanter [Trelegy Ellipta 200-62.5-25] 1 puff INHALATION HS 12/13/22 Montelukast [Singulair] 10 mg PO HS 12/13/22 metFORMIN HCL 1,000 tab PO W/SUPPER 12/15/22 Dulaglutide [Trulicity] 0.75 mg SQ TU 01/20/23 Omeprazole 40 mg PO DAILY 03/15/23 amLODIPine [Norvasc] 5 mg PO DAILY 03/15/23 Controlled Substance Measures - Controlled Substance Measures Is patient prescribed a controlled substance at discharge?: No
== END ==
LOC: PNWHC3 13:57
PROVIDERS: ATTEND Specialist
DX: M51.36 Other intervertebral disc degeneration, lumbar region (principal); M47.816 Spondylosis without myelopathy or radiculopathy, lumbar region; G89.29 Other chronic pain; Z87.891 Personal history of nicotine dependence; Z88.0 Allergy status to penicillin; Z88.2 Allergy status to sulfonamides; Z88.1 Allergy status to other antibiotic agents
CPT/HCPCS: 99211

== ENCOUNTER → 2023-05-17 | Outpatient (CLI) | payer OTHER ==
[2023-05-17 14:53] VITALS: BP 142/78; PULSE 92; RESP 16; TEMP 98.9
--- NOTE | 2023-05-17 16:09 | P.PAINPG ---
Objective - Vital Signs Vital signs: Intake & Output 05/16/23 05/17/23 05/17/23 18:59 06:59 18:59 Weight 249 kg PQRS Measure Charge Sheet Comment: A 52 yr old male with a history of severe and chronic LBP secondary to lumbar DDD and spondylosis with facet arthropathy without myelopathy presents today for evaluation s/p RON L5-S1. Pt states he experienced 70% pain relief x 3 - 4 wks s/p procedure. Pain level is provoked at 4/10 in intensity, constant, localized in the upper lumbar spine, burning, stinging in character w shooting down the spine. Pain is provoked by bending, lifting. Pain is alleviated with heat, ice, massages from his semi weekly, chiropractic treatments up semi monthly x 1 mo which he is currently in, medications, topical, repositioning and rest. Interventional pain procedures completed include BL TFESI L5-S1 x2, RON L2-L3 x1 Patient is currently on THC gummies, Voltaren gel Patient denies any side effects of the medication(s), denies excessive drowsiness or sleepiness, denies suicidal ideation and reports that the current pain medication is helping to control the pain and improve activities of daily living. Patient denies any motor or sensory deficits. Patient denies any fever or night sweats, denies any change in the bowel movements or urination. Physical Examination: -Constitutional: Cooperative. Not in acute distress . - Neurologic: Cranial nerve II to XII intact. No focal neurological deficits. - Psychatric: Alert & oriented x 3. Matching mood & appropriate affect. Judgment and insight intact. - Musculoskeletal: Cervical spine: Muscle bulk/ tone/ strength in the bilateral upper extremities normal Vertebral body tenderness to palpation over Spurling test positive Distraction test positive Facet loading test positive TTP Thoracic spine Muscle bulk / tone/ strength in the bilateral paraspinal muscles normal Vertebral body tender to palpation over Facet loading test positive TTP Lumbar spine: Motor bulk/ tone/ strength lower extremities , thigh and legs : 5/5 Deep tendon reflexes : Normal Knee Jerk. Normal Ankle Jerk . Vertebral body tenderness to palpation over L5 +Ellison Test positive Lumbar Facet Loading Test positive Straight Leg Raise: positive at 30 degrees right side> left side Gaenslen's Test positive Sacral spine : Severe tenderness over the Sacroiliac joint: right side / left side Range of motion: Flexion of the lumbar spine <60 degrees Range of motion: Extension of the lumbar spine <20 degrees Gaenslen's Test positive right side / left side Katey test: positive right side / left side Thigh Thrust Test positive right side / left side Sacral Thrust Test positive right side / left side Assessment and plan: Chronic LBP secondary to lumbar DDD, spondylosis with facet arthropathy without myelopathy Will manage residual pain and may RTC on an as needed basis. All questions answered. I have spent less than 30 minutes on patient care today. Dr Kim was available by phone for the evaluation of this patient. The time was used to review the medical records including relevant urine studies and Prescription history (MAPs), review of the available imaging, evaluation and examination of the patient, coordination of care with the medical staff and if applicable referring physicians, as well as creation of the medical record PQRS Narrative: Smoking Status Former smoker Hx Alcohol Use (MH) No Home Medications: Ambulatory Orders Albuterol Sulfate [Albuterol Sulfate Hfa] 2 puff INHALATION RT-Q6H PRN 08/30/22 Losartan Potassium 100 mg PO DAILY 08/30/22 Atorvastatin [Lipitor] 40 mg PO HS 09/07/22 Metoprolol Tartrate [Lopressor] 50 mg PO BID 10/25/22 Spironolactone 25 mg PO DAILY 10/25/22 Fluticasone/Umeclidin/Vilanter [Trelegy Ellipta 200-62.5-25] 1 puff INHALATION HS 12/13/22 Montelukast [Singulair] 10 mg PO HS 12/13/22 metFORMIN HCL 1,000 tab PO W/SUPPER 12/15/22 Dulaglutide [Trulicity] 15 mg SQ TU 01/20/23 Omeprazole 40 mg PO DAILY 03/15/23 amLODIPine [Norvasc] 5 mg PO DAILY 03/15/23 Fluticasone Nasal Senath [Flonase Nasal Senath] 1 spray EA NOSTRIL DAILY 04/13/23 Ketorolac [Toradol] 10 mg PO Q6HR PRN #15 tab 04/23/23 Metoclopramide [Reglan] 10 mg PO Q6H PRN #20 tab 04/23/23 Ondansetron Odt [Zofran Odt] 4 mg PO Q8HR PRN #20 tab 04/23/23 Controlled Substance Measures - Controlled Substance Measures Is patient prescribed a controlled substance at discharge?: No
== END ==
LOC: PNWHC3 13:38
PROVIDERS: ATTEND Specialist
DX: M51.36 Other intervertebral disc degeneration, lumbar region (principal); M47.816 Spondylosis without myelopathy or radiculopathy, lumbar region; G89.29 Other chronic pain; Z87.891 Personal history of nicotine dependence; Z88.0 Allergy status to penicillin; Z88.2 Allergy status to sulfonamides; Z88.1 Allergy status to other antibiotic agents
CPT/HCPCS: 99211

== ENCOUNTER 2023-05-24 08:50 | Emergency (ER) | payer OTHER ==
[2023-05-24] MEDS ORDERED: SODIUM CHLORIDE 0.9% 2,000 ML IV STA (10:03)
[2023-05-24] MEDS ORDERED: ONDANSETRON 4 MG/2 ML VIAL IVP STA (10:03)
[2023-05-24 10:31] LABS: Basophils % (A) 0 %; Eosinophils # (A) 0.1 k/uL (0-0.7); Eosinophils % (A) 1 %; HCT 43.8 % (39.0-53.0); HGB 14.8 gm/dL (13.0-17.5); Lymphocytes # (A) 1.9 k/uL (1.0-4.8); Lymphocytes % (A) 20 %; MCHC 33.9 g/dL (31.0-37.0); MCV 88.7 fL (80.0-100.0); Mean Platelet Volume 8.1; Monocytes # (A) 0.5 k/uL (0-1.0); Monocytes % (A) 5 %; Neutrophils % (A) 73 %; Platelet Count 241 k/uL (150-450); RBC 4.94 m/uL (4.30-5.90); RDW 13.4 % (11.5-15.5); WBC 9.6 k/uL (3.8-10.6)
[2023-05-24 10:42] LABS: ALT 22 U/L (4-49); AST 27 U/L (17-59); African American GFR (CKD) >90 (>60 ml/min/1.73 sqM); Albumin 4.2 g/dL (3.5-5.0); Alkaline Phosphatase 83 U/L (38-126); Anion Gap 11 mmol/L; Blood Urea Nitrogen 16 mg/dL (9-20); Calcium 9.2 mg/dL (8.4-10.2); Carbon Dioxide 22 mmol/L (22-30); Chloride 105 mmol/L (98-107); Glucose 108 mg/dL (74-99); Lipase 553 U/L (23-300); Non-African American GFR(CKD) >90 (>60 ml/min/1.73 sqM); Potassium 4.3 mmol/L (3.5-5.1); Sodium 138 mmol/L (137-145); Total Bilirubin 0.8 mg/dL (0.2-1.3); Total Protein 7.6 g/dL (6.3-8.2)
[2023-05-24 11:03] LABS: Appearance,Urine Clear (Clear); Color,Urine Light Orange; Glucose,Urine (UA) Negative (Negative); PH, Urine 5.5 (5.0-8.0); Protein,Urine Trace (Negative); Specific Gravity,Urine >1.030 (1.001-1.035)
[2023-05-24 11:04] LABS: Bilirubin,Urine Negative (Negative); Blood,Urine Negative (Negative); Ketones,Urine Trace (Negative); Leukocyte Esterase,Urine Negative (Negative); Nitrite,Urine Negative (Negative); Urobilinogen,Urine <2.0 mg/dL (<2.0)
[2023-05-24 13:00] VITALS: RESP 16
[2023-05-24] MEDS ORDERED: diphenhydrAMINE 50 MG/ML 1 ML VIAL IVP STA (13:09)
[2023-05-24] MEDS ORDERED: KETOROLAC 15 MG/ML 1 ML VIAL IVP STA (13:09)
[2023-05-24] MEDS ORDERED: METOCLOPRAMIDE 5 MG/ML 2 ML VIAL IVP STA (13:09)
--- NOTE | 2023-05-24 15:30 | ED ---
General Adult HPI - General Chief complaint: Nausea/Vomiting/Diarrhea Stated complaint: Headache Time Seen by Provider: 05/24/23 09:00 Source: patient Mode of arrival: ambulatory Limitations: no limitations - History of Present Illness Initial comments: 52 year old male presents with nausea and vomiting. Symptoms started 2 days ago. States he has kept little water down and retched so much that he now has a headache. He denies fever. No sick contacts. No vision changes. Admit to lightheadedness when standing. He began feeling ill after he took his trulicy injection. Admits to epigastric pain - Related Data Home Medications Medication Instructions Recorded Confirmed Albuterol Sulfate [Albuterol 2 puff INHALATION RT-Q6H PRN 08/30/22 04/18/23 Sulfate Hfa] Losartan Potassium 100 mg PO DAILY 08/30/22 04/18/23 Atorvastatin [Lipitor] 40 mg PO HS 09/07/22 04/18/23 Metoprolol Tartrate [Lopressor] 50 mg PO BID 10/25/22 04/18/23 Spironolactone 25 mg PO DAILY 10/25/22 04/18/23 Fluticasone/Umeclidin/Vilanter 1 puff INHALATION HS 12/13/22 04/18/23 [Trelegy Ellipta 200-62.5-25] Montelukast [Singulair] 10 mg PO HS 12/13/22 04/18/23 metFORMIN HCL 1,000 tab PO W/SUPPER 12/15/22 04/18/23 Dulaglutide [Trulicity] 15 mg SQ TU 01/20/23 04/18/23 Omeprazole 40 mg PO DAILY 03/15/23 04/18/23 amLODIPine [Norvasc] 5 mg PO DAILY 03/15/23 04/18/23 Fluticasone Nasal [place] [Flonase 1 spray EA NOSTRIL DAILY 04/13/23 04/18/23 Nasal [place]] Previous Rx's Medication Instructions Recorded Ketorolac [Toradol] 10 mg PO Q6HR PRN #15 tab 04/23/23 Metoclopramide [Reglan] 10 mg PO Q6H PRN #20 tab 04/23/23 Ondansetron Odt [Zofran Odt] 4 mg PO Q8HR PRN #20 tab 04/23/23 Ondansetron Odt [Zofran Odt] 4 mg PO Q8HR PRN #30 tab 05/24/23 Allergies Allergy/AdvReac Type Severity Reaction Status Date / Time Penicillins Allergy Hives all Verified 05/24/23 08:55 over Sulfa (Sulfonamide AdvReac Leg cramps Verified 05/24/23 08:55 Antibiotics) sulfamethoxazole AdvReac LEG CRAMPS Verified 05/24/23 08:55 [From Bactrim] trimethoprim [From Bactrim] AdvReac LEG CRAMPS Verified 05/24/23 08:55 Review of Systems ROS Statement: Those systems with pertinent positive or pertinent negative responses have been documented in the HPI. ROS Other: All systems not noted in ROS Statement are negative. Past Medical History Past Medical History: Asthma, Chest Pain / Angina, Diabetes Mellitus, GERD/Reflux, Hyperlipidemia, Hypertension, Skin Disorder Additional Past Medical History / Comment(s): EPISODES OF PASSING OUT- HAD LOOP RECORDER AND CARDIAC TESTING AND PT STATES IT WAS NEGATIVE., IBS, ROSACEA, ARTHRITIS RIGHT KNEE, elevated diaphragm, adrenal gland TUMOR -DENIES History of Any Multi-Drug Resistant Organisms: None Reported Past Surgical History: Appendectomy, Cholecystectomy, EPS, Heart Catheterization, Hernia Repair, Orthopedic Surgery Additional Past Surgical History / Comment(s): loop recorder implanted 2005 and removed., colonoscopy/egd,umbilical and hiatal hernia repair, fx jaw, rt knee arthroscopy. BILAT CTR, PAIN CLINIC PROCEDURE, EGD/ COLONOSCOPY Past Anesthesia/Blood Transfusion Reactions: No Reported Reaction Additional Past Anesthesia/Blood Transfusion Reaction / Comment(s): CLAUSTROPHOBIC Past Psychological History: Anxiety Smoking Status: Former smoker Past Alcohol Use History: None Reported Past Drug Use History: Marijuana - Past Family History Father Family Medical History: Cancer, Hypertension Mother Family Medical History: Chest Pain / Angina, Hypertension Additional Family Medical History / Comment(s): from stroke General Exam Limitations: no limitations General appearance: alert, in no apparent distress Head exam: Present: atraumatic, normocephalic, normal inspection Eye exam: Present: normal appearance, PERRL, EOMI. Absent: scleral icterus, conjunctival injection, periorbital swelling ENT exam: Present: normal exam, mucous membranes moist Neck exam: Present: normal inspection. Absent: tenderness, meningismus, lym phadenopathy Respiratory exam: Present: normal lung sounds bilaterally. Absent: respiratory distress, wheezes, rales, rhonchi, stridor Cardiovascular Exam: Present: regular rate, normal rhythm, normal heart sounds. Absent: systolic murmur, diastolic murmur, rubs, gallop, clicks GI/Abdominal exam: Present: soft, tenderness (epigastric), normal bowel sounds. Absent: distended, guarding, rebound, rigid Extremities exam: Present: normal inspection, full ROM, normal capillary refill. Absent: tenderness, pedal edema, joint swelling, calf tenderness Back exam: Present: normal inspection Neurological exam: Present: alert, oriented X3, CN II-XII intact Psychiatric exam: Present: normal affect, normal mood Skin exam: Present: warm, dry, intact, normal color. Absent: rash Course Vital Signs 05/24/23 05/24/23 05/24/23 08:52 12:44 16:22 Temperature 98.5 F 98.2 F 98.1 F Pulse Rate 72 62 63 Respiratory 18 16 16 Rate Blood Pressure 129/90 128/82 131/86 O2 Sat by Pulse 98 96 95 Oximetry Medical Decision Making - Medical Decision Making Was pt. sent in by a medical professional or institution (, PA, ESTATE AND TRUST TAX PRINCIPAL, urgent care, hospital, or [place] health care facility...) When possible be specific @ -No Did you speak to anyone other than the patient for history (EMS, parent, family, police, friend...)? What history was obtained from this source @ -No Did you review nursing and triage notes (agree or disagree)? Why? @ -I reviewed and agree with nursing and triage notes Were old charts reviewed (outside hosp., previous admission, EMS record, old EKG, old radiological studies, urgent care reports/EKG's, [place] health care facility records)? Report findings @ -No old charts were reviewed Differential Diagnosis (chest pain, altered mental status, abdominal pain women, abdominal pain men, vaginal bleeding, weakness, fever, dyspnea, syncope, headache, dizziness, GI bleed, back pain, seizure, CVA, palpatations, mental health, musculoskeletal)? @ -medication side effect, pancreatitis, gastritis, influenza, covid EKG interpreted by me (3pts min.). @ -Yes and demonstrates sinus bradycardia with a rate of 58. OR interval 207. QRS 118. QTC of 416. No acute ST segment elevations or depressions X-rays interpreted by me (1pt min.). @ -None done CT interpreted by me (1pt min.). @ -yes, no acute process U/S interpreted by me (1pt. min.). @ -None done What testing was considered but not performed or refused? (CT, X-rays, U/S, labs)? Why? @ -None What meds were considered but not given or refused? Why? @ -None Did you discuss the management of the patient with other professionals (professionals i.e. DrShaunna, PA, ESTATE AND TRUST TAX PRINCIPAL, lab, RT, psych nurse, high school social studies teacher, heel top lift splitter, teacher, peace officer, lining caser)? Give summary @ -No Was smoking cessation discussed for >3mins.? @ -No Was critical care preformed (if so, how long)? @ -No Were there social determinants of health that impacted care today? How? (Homelessness, low income, unemployed, alcoholism, drug addiction, transportation, low edu. Level, literacy, decrease access to med. care, halfway, rehab)? @ -No Was there de-escalation of care discussed even if they declined (Discuss DNR or withdrawal of care, Hospice)? DNR status @ -No What co-morbidities impacted this encounter? (DM, HTN, Smoking, COPD, CAD, Cancer, CVA, ARF, Chemo, Hep., AIDS, mental health diagnosis, sleep apnea, morbid obesity)? @ -DM Was patient admitted / discharged? Hospital course, mention meds given and r oute, prescriptions, significant lab abnormalities, going to OR and other pertinent info. @ -discharged. patient feels improved after antiemetics and fluids. patient needs to discuss possible change of medications if continues to have symptoms after next trulicity injection Undiagnosed new problem with uncertain prognosis? @ -yes Drug Therapy requiring intensive monitoring for toxicity (Heparin, Nitro, Insulin, Cardizem)? @ -No Were any procedures done? @ -No Diagnosis/symptom? @ -acute n/v, elevated lipase, possible medication side effect Acute, or Chronic, or Acute on Chronic? @ -acute Uncomplicated (without systemic symptoms) or Complicated (systemic symptoms)? @ -complicated Side effects of treatment? @ -No Exacerbation, Progression, or Severe Exacerbation? @ -No Poses a threat to life or bodily function? How? (Chest pain, [place], [place], pneumonia, PE, COPD, DKA, ARF, appy, cholecystitis, CVA, Diverticulitis, Homicidal, Suicidal, threat to staff... and all critical care pts) @ -No - Lab Data Result diagrams: 05/24/23 10:09 05/24/23 10:09 Lab Results 05/24/23 05/24/23 05/24/23 Range/Units 10:09 10:09 10:09 WBC 9.6 (3.8-10.6) k/uL RBC 4.94 (4.30-5.90) m/uL Hgb 14.8 (13.0-17.5) gm/dL Hct 43.8 (39.0-53.0) % MCV 88.7 (80.0-100.0) fL MCH 30.0 (25.0-35.0) pg MCHC 33.9 (31.0-37.0) g/dL RDW 13.4 (11.5-15.5) % Plt Count 241 (150-450) k/uL MPV 8.1 Neutrophils % 73 % Lymphocytes % 20 % Monocytes % 5 % Eosinophils % 1 % Basophils % 0 % Neutrophils # 7.0 (1.3-7.7) k/uL Lymphocytes # 1.9 (1.0-4.8) k/uL Monocytes # 0.5 (0-1.0) k/uL Eosinophils # 0.1 (0-0.7) k/uL Basophils # 0.0 (0-0.2) k/uL Sodium 138 (137-145) mmol/L Potassium 4.3 (3.5-5.1) mmol/L Chloride 105 (98-107) mmol/L Carbon Dioxide 22 (22-30) mmol/L Anion Gap 11 mmol/L BUN 16 (9-20) mg/dL Creatinine 0.70 (0.66-1.25) mg/dL Est GFR (CKD-EPI)AfAm >90 (>60 ml/min/1.73 sqM) Est GFR (CKD-EPI)NonAf >90 (>60 ml/min/1.73 sqM) Glucose 108 H (74-99) mg/dL Plasma Lactic Acid Wayne (0.7-2.0) mmol/L Calcium 9.2 (8.4-10.2) mg/dL Total Bilirubin 0.8 (0.2-1.3) mg/dL AST 27 (17-59) U/L ALT 22 (4-49) U/L Alkaline Phosphatase 83 (38-126) U/L Troponin I <0.012 (0.000-0.034) ng/mL Total Protein 7.6 (6.3-8.2) g/dL Albumin 4.2 (3.5-5.0) g/dL Lipase 553 H (23-300) U/L Urine Color Urine Appearance (Clear) Urine pH (5.0-8.0) Ur Specific [place] (1.001-1.035) Urine Protein (Negative) Urine Glucose (UA) (Negative) Urine Ketones (Negative) Urine Blood (Negative) Urine Nitrite (Negative) Urine Bilirubin (Negative) Urine Urobilinogen (<2.0) mg/dL Ur Leukocyte Esterase (Negative) 05/24/23 05/24/23 Range/Units 10:09 10:09 WBC (3.8-10.6) k/uL RBC (4.30-5.90) m/uL Hgb (13.0-17.5) gm/dL Hct (39.0-53.0) % MCV (80.0-100.0) fL MCH (25.0-35.0) pg MCHC (31.0-37.0) g/dL RDW (11.5-15.5) % Plt Count (150-450) k/uL MPV Neutrophils % % Lymphocytes % % Monocytes % % Eosinophils % % Basophils % % Neutrophils # (1.3-7.7) k/uL Lymphocytes # (1.0-4.8) k/uL Monocytes # (0-1.0) k/uL Eosinophils # (0-0.7) k/uL Basophils # (0-0.2) k/uL Sodium (137-145) mmol/L Potassium (3.5-5.1) mmol/L Chloride (98-107) mmol/L Carbon Dioxide (22-30) mmol/L Anion Gap mmol/L BUN (9-20) mg/dL Creatinine (0.66-1.25) mg/dL Est GFR (CKD-EPI)AfAm (>60 ml/min/1.73 sqM) Est GFR (CKD-EPI)NonAf (>60 ml/min/1.73 sqM) Glucose (74-99) mg/dL Plasma Lactic Acid Wayne 0.8 (0.7-2.0) mmol/L Calcium (8.4-10.2) mg/dL Total Bilirubin (0.2-1.3) mg/dL AST (17-59) U/L ALT (4-49) U/L Alkaline Phosphatase (38-126) U/L Troponin I (0.000-0.034) ng/mL Total Protein (6.3-8.2) g/dL Albumin (3.5-5.0) g/dL Lipase (23-300) U/L Urine Color Light [place] Urine Appearance Clear (Clear) Urine pH 5.5 (5.0-8.0) Ur Specific [place] >1.030 (1.001-1.035) Urine Protein Trace H (Negative) Urine Glucose (UA) Negative (Negative) Urine Ketones Trace (Negative) Urine Blood Negative (Negative) Urine Nitrite Negative (Negative) Urine Bilirubin Negative (Negative) Urine Urobilinogen <2.0 (<2.0) mg/dL Ur Leukocyte Esterase Negative (Negative) Disposition Clinical Impression: Epigastric pain, Nausea and vomiting, Elevated lipase Disposition: HOME SELF-CARE Condition: Stable Instructions (If sedation given, give patient instructions): Pancreatitis (ED) Additional Instructions: Eat a bland diet. Use the nausea medications as needed. Call your doctor tomorrow to discuss medication changes. Return for any new or worsening symptoms Prescriptions: Ondansetron Odt [Zofran Odt] 4 mg PO Q8HR PRN #30 tab PRN Reason: Nausea Is patient prescribed a controlled substance at d/c from ED?: No Referrals: Norm Davis MD [Primary Care Provider] - 1-2 days Time of Disposition: 15:58
--- NOTE | 2023-05-24 15:49 | CT ---
EXAMINATION TYPE: CT abdomen pelvis w con CT DLP: 1956 mGycm, Automated exposure control for dose reduction was used. DATE OF EXAM: 05/24/2023 3:24 PM COMPARISON: CT abdomen pelvis most recent from 04/23/2023 CLINICAL INDICATION:Male, 52 years old with history of abd pain; abdominal pain TECHNIQUE: Axial CT of the ;CT abdomen pelvis w con;Sagittal and coronal reformats were created on a separate workstation. Contrast used:100 mL of Isovue 300 with IV Contrast, (none if empty) Oral contrast used: without Oral Contrast (none if empty) FINDINGS: LOWER CHEST: Unremarkable ABDOMEN LIVER: Unremarkable GALLBLADDER AND BILE DUCTS: The gallbladder is surgically absent. PANCREAS: Unremarkable. SPLEEN: Unremarkable. ADRENAL GLANDS: Unremarkable. KIDNEYS AND URETERS: No evidence of hydronephrosis or renal calculus. The ureters are unremarkable. PELVIS BLADDER: Incompletely distended but grossly unremarkable. REPRODUCTIVE: Unremarkable. ABDOMEN & PELVIS STOMACH AND BOWEL: No evidence of bowel obstruction. Scattered colonic diverticula. The appendix is n ot definitively visualized. Second portion duodenal diverticulum. PERITONEUM/RETROPERITONEUM: No evidence of pneumoperitoneum or free fluid. VASCULATURE: Mild atherosclerotic calcifications are present throughout the abdominal aorta and its b ranches. No evidence of aortic aneurysm. MUSCULOSKELETAL: No acute osseous abnormalities. Mild disc degeneration changes are present throughou t the thoracolumbar spine. LYMPH NODES: No gross evidence for lymphadenopathy. SOFT TISSUE/ABDOMINAL WALL: Unremarkable IMPRESSION: No evidence for acute abdominal process. Scattered colonic diverticulosis.
[2023-05-24 16:45] VITALS: BP 131/86; PULSE 63; TEMP 98.1
== END 2023-05-24 16:23 | disposition home or self-care (01) ==
LOC: EC 08:50
DX: K57.30 Diverticulosis of large intestine without perforation or abscess without bleeding (principal); I10 Essential (primary) hypertension; E11.9 Type 2 diabetes mellitus without complications; E78.5 Hyperlipidemia, unspecified; J45.909 Unspecified asthma, uncomplicated; K21.9 Gastro-esophageal reflux disease without esophagitis; Z79.899 Other long term (current) drug therapy; Z88.0 Allergy status to penicillin; Z88.2 Allergy status to sulfonamides; Z88.8 Allergy status to other drugs, medicaments and biological substances; Z87.891 Personal history of nicotine dependence; Z90.49 Acquired absence of other specified parts of digestive tract; Z79.84 Long term (current) use of oral hypoglycemic drugs
CPT/HCPCS: 99285 ×2; 96374 ×2; 96375 ×4; 96361 ×3; 36415; 93005; 80053; 83605; 83690; 84484; 85025; 81003; 74177; J1200; J2765; J2405; J1885; Q9967

== ENCOUNTER → 2023-07-06 | Outpatient (CLI) | payer OTHER ==
[2023-07-06 08:47] VITALS: BP 160/100; PULSE 76; RESP 15; TEMP 98.6
--- NOTE | 2023-07-06 15:04 | P.PAINPG ---
PQRS Measure Charge Sheet Comment: A 52 yr old male with a history of severe and chronic LBP secondary to lumbar DDD and spondylosis with facet arthropathy without myelopathy presents today for evaluation. Pain level is provoked at 10/10 in intensity, constant, localized in the lumbar spine, predominantly axial, burning, stinging in character w occasional shooting down the spine. Pain is provoked by bending, lifting. Pain is alleviated with heat, ice, massages from his semi weekly, chiropractic treatments up semi monthly x 1 mo in Apr 2023, physician guided home stretching regimen every morning x 2 mo, medications, topical, repositioning and rest. Oswestry axial pain score of 24. Interventional pain procedures completed include BL TFESI L5-S1 x2, RON L2-L3 x1 Patient is currently on THC gummies, Voltaren gel Patient denies any side effects of the medication(s), denies excessive drowsiness or sleepiness, denies suicidal ideation and reports that the current pain medication is helping to control the pain and improve activities of daily living. Patient denies any motor or sensory deficits. Patient denies any fever or night sweats, denies any change in the bowel movements or urination. Physical Examination: -Constitutional: Cooperative. Not in acute distress . - Neurologic: Cranial nerve II to XII intact. No focal neurological deficits. - Psychatric: Alert & oriented x 3. Matching mood & appropriate affect. Judgment and insight intact. - Musculoskeletal: Cervical spine: Muscle bulk/ tone/ strength in the bilateral upper extremities normal Vertebral body tenderness to palpation over Spurling test positive Distraction test positive Facet loading test positive TTP Thoracic spine Muscle bulk / tone/ strength in the bilateral paraspinal muscles normal Vertebral body tender to palpation over Facet loading test positive TTP Lumbar spine: Motor bulk/ tone/ strength lower extremities , thigh and legs : 5/5 Deep tendon reflexes : Normal Knee Jerk. Normal Ankle Jerk . Vertebral body tenderness to palpation over L2 Ellison Test positive over BL L2-L3 Lumbar Facet Loading Test positive Straight Leg Raise: positive at 30 degrees right side> left side Gaenslen's Test positive Sacral spine : Severe tenderness over the Sacroiliac joint: right side / left side Range of motion: Flexion of the lumbar spine <60 degrees Range of motion: Extension of the lumbar spine <20 degrees Gaenslen's Test positive right side / left side Katey test: positive right side / left side Thigh Thrust Test positive right side / left side Sacral Thrust Test positive right side / left side Assessment and plan: Chronic LBP secondary to lumbar DDD, spondylosis with facet arthropathy without myelopathy Recommendation of RON L2-L3 #2. May need a series of injections for optimal pain relief. Risks, benefits of procedure discussed and patient verbalized understanding. Protocol for discontinuation/continuation of medications surrounding procedure discussed. All questions answered. I have spent less than 30 minutes on patient care today. Dr Kim was available by phone for the evaluation of this patient. The time was used to review the medical records including relevant urine studies and Prescription history (MAPs), review of the available imaging, evaluation and examination of the patient, coordination of care with the medical staff and if applicable referring physicians, as well as creation of the medical record PQRS Narrative: Smoking Status Former smoker Hx Alcohol Use (MH) No Home Medications: Ambulatory Orders Albuterol Sulfate [Albuterol Sulfate Hfa] 2 puff INHALATION RT-Q6H PRN 08/30/22 Losartan Potassium 100 mg PO DAILY 08/30/22 Atorvastatin [Lipitor] 40 mg PO HS 09/07/22 Metoprolol Tartrate [Lopressor] 50 mg PO BID 10/25/22 Spironolactone 25 mg PO DAILY 10/25/22 Fluticasone/Umeclidin/Vilanter [Trelegy Ellipta 200-62.5-25] 1 puff INHALATION HS 12/13/22 Montelukast [Singulair] 10 mg PO HS 12/13/22 metFORMIN HCL 1,000 tab PO W/SUPPER 12/15/22 Dulaglutide [Trulicity] 15 mg SQ TU 01/20/23 Omeprazole 40 mg PO DAILY 03/15/23 amLODIPine [Norvasc] 5 mg PO DAILY 03/15/23 Fluticasone Nasal [place] [Flonase Nasal [place]] 1 spray EA NOSTRIL DAILY 04/13/23 Ketorolac [Toradol] 10 mg PO Q6HR PRN #15 tab 04/23/23 Metoclopramide [Reglan] 10 mg PO Q6H PRN #20 tab 04/23/23 Ondansetron Odt [Zofran Odt] 4 mg PO Q8HR PRN #20 tab 04/23/23 Ondansetron Odt [Zofran Odt] 4 mg PO Q8HR PRN #30 tab 05/24/23 Controlled Substance Measures - Controlled Substance Measures Is patient prescribed a controlled substance at discharge?: No
== END ==
LOC: PNWHC3 07:58
PROVIDERS: ATTEND Specialist
DX: M51.36 Other intervertebral disc degeneration, lumbar region (principal); Z88.0 Allergy status to penicillin; Z88.2 Allergy status to sulfonamides; Z91.048 Other nonmedicinal substance allergy status; Z87.891 Personal history of nicotine dependence
CPT/HCPCS: 99211

== ENCOUNTER 2023-07-13 06:49 | Day surgery (SDC) | payer OTHER ==
[2023-07-11 14:54] VITALS: BMI 35.4
[2023-07-13] MEDS ORDERED: LACTATED RINGERS 1,000 ML IV SCH (07:00)
[2023-07-13 07:15] LABS: Glucose,Whole Blood 117 mg/dL (70-110)
[2023-07-13 07:27] VITALS: TEMP 98
[2023-07-13] MEDS ORDERED: methylPREDNISolone ACETATE 80 MG/ML 1 ML VIAL ONE (07:40)
[2023-07-13] MEDS ORDERED: IOPAMIDOL M200 10 ML VIAL ONE (07:40)
[2023-07-13] MEDS ORDERED: ROPIVACAINE 5MG/ML 20ML VIAL ONE (07:40)
--- NOTE | 2023-07-13 08:01 | P.PCN ---
Description of Procedure: PREOPERATIVE DIAGNOSIS: 1- Lumbar Degenerative Disc Diseases 2-Lumbar spondylosis with Facet arthropathy without myelopathy. 3-lumbar spinal stenosis POSTOPERATIVE DIAGNOSIS: 1-lumbar degenerative disc disease. 2-lumbar spondylosis with facet arthropathy without myelopathy. 3-lumbar spinal stenosis. PROCEDURE Injection of radial contrast material into L45 interspace, interpretation of epidurogram, injection of steroid at L4 5 epidural space under fluoroscopic guidance. ANESTHESIA: Lidocaine 1% subcutaneously. In OR continuous pulse ox, EKG, blood pressure and volleyball complication was maintained with the patient. EBL: Minimal PROCEDURE INDICATION: Decided to perform an epidural at L4- 5 level because of patient symptoms and MRI report. Before the procedure were discussed with the patient detailed procedure, alternatives, complications including infection, bleeding, nerve damage, paralysis all of which could be permanent. Patient understands and all questions were answered. PROCEDURE DESCRIPTION : After getting consent, patient in OR in prone position. Back was prepped with chlorhexidine and draped in sterile fashion. After injecting 10 mL of 1% lidocaine subcutaneously, a 20-gauge Tuohy needle was introduced at L4 5 interspace with loss of resistance technique using a syringe filled with air. Negative CSF, negative blood, negative paresthesia. Needle position was confirmed with AP and lateral view of the fluoroscope. After repeat negative aspiration 2 mL of Omnipaque 200 water soluble contrast was injected. Contrast was noted in the epidural space. No contrast was noted into intrathecal or intravascular space. After repeat negative aspiration 6 mL solution was injected intermittently which consists of 5 mL of preservative-free normal saline mixed with 1 mL of 80 mg Depo-Medrol. Needle was withdrawn intact. Skin was cleansed and Band-Aids was applied. DISPOSITION / PLANS: The patient tolerated the procedure well. No complication. The patient was placed in a supine position and transferred to the recovery area in a stable condition for observation. There was no evidence of lower extremity motor or sensory deficit after the procedure. Patient was discharged from the recovery room after meeting discharge criteria. Home discharge instructions were given to the patient by the staff. The patient was reexamined prior to discharge. The patient will schedule a follow up in the clinic in 2-4 weeks.
[2023-07-13 08:17] VITALS: BP 118/78; PULSE 49; RESP 16
--- NOTE | 2023-07-13 10:12 | FL ---
EXAMINATION TYPE: FL guided pain mgmt statistic DATE OF EXAM: 07/13/2023 HISTORY: Fluoroscopy time Total dose area product (DAP) in uGy*m?, mGy*cm? (or similar): 0.5694 IMPRESSION: 1. Fluoroscopy time.
== END 2023-07-13 08:17 | disposition home or self-care (01) ==
LOC: ORPAIN 06:49
PROVIDERS: ATTEND Pain Medicine Interventional Pain Medicine
DX: M47.816 Spondylosis without myelopathy or radiculopathy, lumbar region (principal); M48.061 Spinal stenosis, lumbar region without neurogenic claudication; M51.36 Other intervertebral disc degeneration, lumbar region; E11.9 Type 2 diabetes mellitus without complications
CPT/HCPCS: 62323; J1040; Q9966; J2795

== ENCOUNTER → 2023-08-17 | Outpatient (CLI) | payer OTHER ==
[2023-08-17 09:13] VITALS: BP 124/86; PULSE 88; RESP 15; TEMP 98.6
--- NOTE | 2023-08-21 07:50 | P.PAINPG ---
Objective - Vital Signs Vital signs: Intake & Output 08/16/23 08/17/23 08/17/23 18:59 06:59 18:59 Weight 111.13 kg PQRS Measure Charge Sheet Comment: A 52 yr old male with a history of severe and chronic LBP secondary to lumbar DDD and spondylosis with facet arthropathy without myelopathy presents today for evaluation s/p RON L2-L3. Pt states he experienced 90% pain relief x 1 wk s/p procedure. Pain level is provoked at 9/10 in intensity, constant, localized in the lumbar spine, predominantly axial, burning, stinging in character w occasional shooting down the spine. Pain is provoked by bending, lifting. Pain is alleviated with heat, ice, massages from his semi weekly, chiropractic treatments up semi monthly x 1 mo in Apr 2023, physician guided home stretching regimen every morning x 2 mo, medications, topical, repositioning and rest. Oswestry axial pain score of 24. Interventional pain procedures completed include BL TFESI L5-S1 x2, RON L2-L3 x2 Patient is currently on THC gummies, Voltaren gel Patient denies any side effects of the medication(s), denies excessive drowsiness or sleepiness, denies suicidal ideation and reports that the current pain medication is helping to control the pain and improve activities of daily living. Patient denies any motor or sensory deficits. Patient denies any fever or night sweats, denies any change in the bowel movements or urination. Physical Examination: -Constitutional: Cooperative. Not in acute distress . - Neurologic: Cranial nerve II to XII intact. No focal neurological deficits. - Psychatric: Alert & oriented x 3. Matching mood & appropriate affect. Judgment and insight intact. - Musculoskeletal: Cervical spine: Muscle bulk/ tone/ strength in the bilateral upper extremities normal Vertebral body tenderness to palpation over Spurling test positive Distraction test positive Facet loading test positive TTP Thoracic spine Muscle bulk / tone/ strength in the bilateral paraspinal muscles normal Vertebral body tender to palpation over Facet loading test positive TTP Lumbar spine: Motor bulk/ tone/ strength lower extremities , thigh and legs : 5/5 Deep tendon reflexes : Normal Knee Jerk. Normal Ankle Jerk . Vertebral body tenderness to palpation over L2 Ellison Test positive over BL L2-L3 Lumbar Facet Loading Test positive Straight Leg Raise: positive at 30 degrees right side> left side Gaenslen's Test positive Sacral spine : Severe tenderness over the Sacroiliac joint: right side / left side Range of motion: Flexion of the lumbar spine <60 degrees Range of motion: Extension of the lumbar spine <20 degrees Gaenslen's Test positive right side / left side Katey test: positive right side / left side Thigh Thrust Test positive right side / left side Sacral Thrust Test positive right side / left side Assessment and plan: Chronic LBP secondary to lumbar DDD, spondylosis with facet arthropathy without myelopathy Recommendation of PT x 6 wks M51.36. . All questions answered. I have spent less than 30 minutes on patient care today. Dr Kim was available by phone for the evaluation of this patient. The time was used to review the medical records including relevant urine studies and Prescription history (MAPs), review of the available imaging, evaluation and examination of the patient, coordination of care with the medical staff and if applicable referring physicians, as well as creation of the medical record PQRS Narrative: Smoking Status Former smoker Hx Alcohol Use (MH) No Home Medications: Ambulatory Orders Albuterol Sulfate [Albuterol Sulfate Hfa] 2 puff INHALATION RT-Q6H PRN 08/30/22 Losartan Potassium 100 mg PO DAILY 08/30/22 Atorvastatin [Lipitor] 40 mg PO HS 09/07/22 Spironolactone 25 mg PO DAILY 10/25/22 Fluticasone/Umeclidin/Vilanter [Trelegy Ellipta 200-62.5-25] 1 puff INHALATION HS 12/13/22 Montelukast [Singulair] 10 mg PO HS 12/13/22 metFORMIN HCL 1,000 tab PO W/SUPPER 12/15/22 Omeprazole 40 mg PO DAILY 03/15/23 Fluticasone Nasal [place] [Flonase Nasal [place]] 1 spray EA NOSTRIL DAILY 04/13/23 Cholecalciferol (Vitamin D3) [Vitamin D3 (125 MCG = 5,000 IU)] 125 mcg PO DAILY 07/11/23 Co Q-10 (Unknown Dose) 1 tab PO DAILY 07/11/23 Cyanocobalamin (Vitamin B-12) [Vitamin B-12] 1,000 mcg PO DAILY 07/11/23 Dulaglutide [Trulicity] 1.5 mg SQ FR 07/11/23 Metoprolol Tartrate [Lopressor] 100 mg PO BID 07/11/23 Multivitamins, Thera [Multivitamin (formulary)] 1 tab PO DAILY 07/11/23 [place] 3 (Unknown Dose) 1 tab PO DAILY 07/11/23 Sertraline [Zoloft] 50 mg PO DAILY 07/11/23 Voltaren Cream (Dose Unknown) 1 applic TOPICAL DIRECTED PRN 07/11/23 amLODIPine BESYLATE 10 mg PO DAILY 07/11/23 Controlled Substance Measures - Controlled Substance Measures Is patient prescribed a controlled substance at discharge?: No
== END ==
LOC: PNWHC3 08:42
PROVIDERS: ATTEND Anesthesiology
DX: M51.36 Other intervertebral disc degeneration, lumbar region (principal); M47.816 Spondylosis without myelopathy or radiculopathy, lumbar region; G89.29 Other chronic pain; F12.90 Cannabis use, unspecified, uncomplicated; Z87.891 Personal history of nicotine dependence; Z88.0 Allergy status to penicillin; Z88.2 Allergy status to sulfonamides; Z88.1 Allergy status to other antibiotic agents
CPT/HCPCS: 99211

== ENCOUNTER → 2023-08-21 | Outpatient (CLI) | payer OTHER ==
[2023-08-21 12:55] VITALS: BP 124/85; PULSE 69; RESP 16
--- NOTE | 2023-08-21 15:06 | P.PAINPG ---
PQRS Measure Charge Sheet Comment: A 52 yr old male w at side with a history of severe and chronic LBP secondary to lumbar DDD and spondylosis with facet arthropathy without myelopathy , BL Sacroiliitis presents today for evaluation. Pain level is provoked at 9/10 in intensity, constant, localized in the lumbar spine, predominantly axial, burning, stinging in character w occasional shooting to the hips BL. Pain is provoked by sitting for periods > 10 min. Pain is alleviated with PT which he started this week, alternating heat & ice, massages from his semi weekly, chiropractic treatments up semi monthly x 1 mo in Apr 2023, physician guided home stretching regimen every morning x 2 mo, medications, topical, repositioning and rest. Oswestry axial pain score of 24. Interventional pain procedures completed include BL TFESI L5-S1 x2, RON L2-L3 x2 Patient is currently on THC gummies, Voltaren gel Patient denies any side effects of the medication(s), denies excessive drowsiness or sleepiness, denies suicidal ideation and reports that the current pain medication is helping to control the pain and improve activities of daily living. Patient denies any motor or sensory deficits. Patient denies any fever or night sweats, denies any change in the bowel movements or urination. Physical Examination: -Constitutional: Cooperative. Not in acute distress . - Neurologic: Cranial nerve II to XII intact. No focal neurological deficits. - Psychatric: Alert & oriented x 3. Matching mood & appropriate affect. Judgment and insight intact. - Musculoskeletal: Cervical spine: Muscle bulk/ tone/ strength in the bilateral upper extremities normal Vertebral body tenderness to palpation over Spurling test positive Distraction test positive Facet loading test positive TTP Thoracic spine Muscle bulk / tone/ strength in the bilateral paraspinal muscles normal Vertebral body tender to palpation over Facet loading test positive TTP Lumbar spine: Motor bulk/ tone/ strength lower extremities , thigh and legs : 5/5 Deep tendon reflexes : Normal Knee Jerk. Normal Ankle Jerk . Vertebral body tenderness to palpation Ellison Test positive Lumbar Facet Loading Test positive Straight Leg Raise: positive at 30 degrees right side> left side Gaenslen's Test positive Sacral spine : Severe tenderness over the Sacroiliac joint: right side / left side Range of motion: Flexion of the lumbar spine <60 degrees Range of motion: Extension of the lumbar spine <20 degrees Gaenslen's Test positive right side / left side Katey test: positive right side / left side Thigh Thrust Test positive right side / left side Sacral Thrust Test positive right side / left side Assessment and plan: Chronic LBP secondary to lumbar DDD, spondylosis with facet arthropathy without myelopathy, BL Sacroiliitis Recommendation of BL SI injection #1. May need a series of injections for optimal pain relief. Risks, benefits of procedure discussed and patient verbalized understanding. Protocol for discontinuation/continuation of medications surrounding procedure discussed. All questions answered. I have spent less than 30 minutes on patient care today. Dr Kim was available by phone for the evaluation of this patient. The time was used to review the medical records including relevant urine studies and Prescription history (MAPs), review of the available imaging, evaluation and examination of the patient, coordination of care with the medical staff and if applicable referring physicians, as well as creation of the medical record PQRS Narrative: Smoking Status Former smoker Hx Alcohol Use (MH) No Home Medications: Ambulatory Orders Albuterol Sulfate [Albuterol Sulfate Hfa] 2 puff INHALATION RT-Q6H PRN 08/30/22 Losartan Potassium 100 mg PO DAILY 08/30/22 Atorvastatin [Lipitor] 40 mg PO HS 09/07/22 Spironolactone 25 mg PO DAILY 10/25/22 Fluticasone/Umeclidin/Vilanter [Trelegy Ellipta 200-62.5-25] 1 puff INHALATION HS 12/13/22 Montelukast [Singulair] 10 mg PO HS 12/13/22 metFORMIN HCL 1,000 tab PO W/SUPPER 12/15/22 Omeprazole 40 mg PO DAILY 03/15/23 Fluticasone Nasal [place] [Flonase Nasal [place]] 1 spray EA NOSTRIL DAILY 04/13/23 Cholecalciferol (Vitamin D3) [Vitamin D3 (125 MCG = 5,000 IU)] 125 mcg PO DAILY 07/11/23 Co Q-10 (Unknown Dose) 1 tab PO DAILY 07/11/23 Cyanocobalamin (Vitamin B-12) [Vitamin B-12] 1,000 mcg PO DAILY 07/11/23 Dulaglutide [Trulicity] 1.5 mg SQ FR 07/11/23 Metoprolol Tartrate [Lopressor] 100 mg PO BID 07/11/23 Multivitamins, Thera [Multivitamin (formulary)] 1 tab PO DAILY 07/11/23 [place] 3 (Unknown Dose) 1 tab PO DAILY 07/11/23 Sertraline [Zoloft] 50 mg PO DAILY 07/11/23 Voltaren Cream (Dose Unknown) 1 applic TOPICAL DIRECTED PRN 07/11/23 amLODIPine BESYLATE 10 mg PO DAILY 07/11/23 Controlled Substance Measures - Controlled Substance Measures Is patient prescribed a controlled substance at discharge?: No
== END ==
LOC: PNWHC3 12:18
PROVIDERS: ATTEND Specialist
DX: M51.36 Other intervertebral disc degeneration, lumbar region (principal); M47.816 Spondylosis without myelopathy or radiculopathy, lumbar region; G89.29 Other chronic pain; M46.1 Sacroiliitis, not elsewhere classified; F12.90 Cannabis use, unspecified, uncomplicated; Z87.891 Personal history of nicotine dependence; Z88.0 Allergy status to penicillin; Z88.2 Allergy status to sulfonamides; Z88.1 Allergy status to other antibiotic agents
CPT/HCPCS: 99211

== ENCOUNTER 2023-09-05 07:31 | Day surgery (SDC) | payer OTHER ==
[2023-09-05 08:03] LABS: Glucose,Whole Blood 159 mg/dL (70-110)
[2023-09-05 08:17] VITALS: RESP 16; TEMP 97
[2023-09-05] MEDS ORDERED: ROPIVACAINE 5MG/ML 20ML VIAL ONE (08:36)
[2023-09-05] MEDS ORDERED: IOPAMIDOL M200 10 ML VIAL ONE (08:36)
[2023-09-05] MEDS ORDERED: methylPREDNISolone ACETATE 40 MG/ML 1 ML VIAL ONE (08:36)
--- NOTE | 2023-09-05 08:44 | P.PCN ---
Date of Procedure: 09/05/23 Procedure(s) Performed: Procedure= bilateral sacroiliac joints steroid injection under fluoroscopy guidance (fluoroscopy image stored on file in the radiology Department ) Preoperative diagnosis= 1-sacroiliitis 2-lumbar degenerative disc disease 3- lumbar facet arthropathy Postoperative diagnosis=Same as preop Diagnosis . Complication = none Condition= stable Anesthesia= local anesthesia with ropivacaine 0.5% 4 ml only Indication for the procedure= patient complaining of low back pain , examination was positive for severe tenderness over the sacroiliac joints bilaterally and patient diagnosed with sacroiliitis, for this reason he was good candidate for sacroiliac joint steroid injection. Description of the procedure= procedure risk and benefits discussed with the patient, including but not limited, risk of infection and bleeding, and ALLERGIC reaction to the medication and not complete pain relief and patient agreed with the preceding patient taken to the operating room, placed in prone position or standard monitors applied to the patient then after induction of anesthesia back prepped with chlorhexidine 3 times , Then under strict sterile technique, first I did the right sacroiliac joint the which was identified under fluoroscopy guidance been local infiltration of the skin and subcu interstitial with lidocaine 1% then 22-gauge Quincke Needle advanced slowly under fluoroscopy and placed in the right sacroiliac joint needle placement confirmed with AP and oblique and lateral view, then after that Isovue 200 one mL injected which confirmed the correct needle placement with the appropriate arthrogram of the sacroiliac joint, and after appropriate needle placement confirmed and after negative aspiration, or heme , then Ropivacaine 0.5% 2 mL, and 20 mg of Depo-Medrol mixed together and injected in the right sacroiliac joint after negative aspiration patient tolerated the procedure well without any complication. Then the left sacroiliac joint steroid injection done under strict sterile technique local infiltration of the skin and subcu interstitial at the location of the left sacroiliac joint then a 22-gauge Quincke Needle advanced slowly under fluoroscopy time placed in the left sacroiliac joint, needle placement confirmed with AP and oblique and lateral view then after appropriate needle placement confirmed, with the AP and oblique and lateral then after negative aspiration Isovue 200 1 mL injected showed arthropathy of the left sacroiliac joint, and after negative aspiration 0.5% Ropivacaine 2 mL and 20 mg of Depo- Medrol injected in the left sacroiliac joint after negative aspiration patient tolerated the procedure well that any complications and she will follow up in clinic 3 weeks
[2023-09-05 09:16] VITALS: BP 115/73; PULSE 60
--- NOTE | 2023-09-05 09:32 | FL ---
EXAMINATION TYPE: FL guided pain mgmt statistic Intraoperative/procedural fluoroscopic services were provided. Total fluoroscopy time is 6.0 seconds with a total of 2 submitted images to PACS. Please se e the operative/procedural note for further details. DAP: 0.02018 [id number]
== END 2023-09-05 09:08 | disposition home or self-care (01) ==
LOC: ORPAIN 07:31
PROVIDERS: ATTEND Specialist
DX: M46.1 Sacroiliitis, not elsewhere classified (principal); M51.36 Other intervertebral disc degeneration, lumbar region; M47.816 Spondylosis without myelopathy or radiculopathy, lumbar region
CPT/HCPCS: J1030; Q9966; J2795; G0260

== ENCOUNTER → 2023-09-27 | Outpatient (CLI) | payer OTHER ==
[2023-09-27 13:22] VITALS: BP 114/72; PULSE 73; RESP 15; TEMP 98.6
--- NOTE | 2023-09-27 14:00 | P.PAINPG ---
Objective - Vital Signs Vital signs: Intake & Output 09/26/23 09/27/23 09/27/23 18:59 06:59 18:59 Weight 117.934 kg PQRS Measure Charge Sheet Comment: A 52 yr old male w at side with a history of severe and chronic LBP secondary to lumbar DDD and spondylosis with facet arthropathy without myelopathy , BL Sacroiliitis presents today for evaluation s/p BL SI injection #1. Pt states he experienced 90% pain relief x 2 wks s/p procedure. Pain level is provoked at 8/10 in intensity, constant, localized in the lumbar spine, predominantly axial, burning/ stinging in character w occasional shooting towards the tailbone. Pain is provoked by sitting for periods > 10 min. Pain is alleviated with PT which he started this week, alternating heat & ice, massages from his semi weekly, chiropractic treatments up semi monthly x 1 mo in Apr 2023, physician guided home stretching regimen every morning x 2 mo, medications, topical, repositioning and rest. Oswestry axial pain score of 23. Interventional pain procedures completed include BL TFESI L5-S1 x2, RON L2-L3 x2, BL SI injection x1 Patient is currently on THC gummies, Voltaren gel Patient denies any side effects of the medication(s), denies excessive drowsiness or sleepiness, denies suicidal ideation and reports that the current pain medication is helping to control the pain and improve activities of daily living. Patient denies any motor or sensory deficits. Patient denies any fever or night sweats, denies any change in the bowel movements or urination. Physical Examination: -Constitutional: Cooperative. Not in acute distress . - Neurologic: Cranial nerve II to XII intact. No focal neurological deficits. - Psychatric: Alert & oriented x 3. Matching mood & appropriate affect. Judgment and insight intact. - Musculoskeletal: Cervical spine: Muscle bulk/ tone/ strength in the bilateral upper extremities normal Vertebral body tenderness to palpation over Spurling test positive Distraction test positive Facet loading test positive TTP Thoracic spine Muscle bulk / tone/ strength in the bilateral paraspinal muscles normal Vertebral body tender to palpation over Facet loading test positive TTP Lumbar spine: Motor bulk/ tone/ strength lower extremities , thigh and legs : 5/5 Deep tendon reflexes : Normal Knee Jerk. Normal Ankle Jerk . Vertebral body tenderness to palpation L5 Ellison Test positive Lumbar Facet Loading Test positive Straight Leg Raise: positive at 30 degrees right side> left side Gaenslen's Test positive Sacral spine : Severe tenderness over the Sacroiliac joint: right side / left side Range of motion: Flexion of the lumbar spine <60 degrees Range of motion: Extension of the lumbar spine <20 degrees Gaenslen's Test positive right side / left side Katey test: positive right side / left side Thigh Thrust Test positive right side / left side Sacral Thrust Test positive right side / left side Assessment and plan: Chronic LBP secondary to lumbar DDD, spondylosis with facet arthropathy without myelopathy, BL Sacroiliitis Recommendation of BL TFESI L5-S1 #1. May need a series of injections for optimal pain relief. Risks, benefits of procedure discussed and patient verbalized understanding. Protocol for discontinuation/continuation of medications surrounding procedure discussed. All questions answered. I have spent less than 30 minutes on patient care today. Dr Kim was available by phone for the evaluation of this patient. The time was used to review the medical records including relevant urine studies and Prescription history (MAPs), review of the available imaging, evaluation and examination of the patient, coordination of care with the medical staff and if applicable referring physicians, as well as creation of the medical record PQRS Narrative: Smoking Status Former smoker Hx Alcohol Use (MH) No Home Medications: Ambulatory Orders Albuterol Sulfate [Albuterol Sulfate Hfa] 2 puff INHALATION RT-Q6H PRN 08/30/22 Losartan Potassium 100 mg PO DAILY 08/30/22 Atorvastatin [Lipitor] 40 mg PO HS 09/07/22 Spironolactone 25 mg PO DAILY 10/25/22 Fluticasone/Umeclidin/Vilanter [Trelegy Ellipta 200-62.5-25] 1 puff INHALATION HS 12/13/22 Montelukast [Singulair] 10 mg PO HS 12/13/22 metFORMIN HCL 1,000 tab PO W/SUPPER 12/15/22 Omeprazole 40 mg PO DAILY 03/15/23 Cholecalciferol (Vitamin D3) [Vitamin D3 (125 MCG = 5,000 IU)] 125 mcg PO DAILY 07/11/23 Co Q-10 (Unknown Dose) 100 mg PO DAILY 07/11/23 Cyanocobalamin (Vitamin B-12) [Vitamin B-12] 1,000 mcg PO DAILY 07/11/23 Metoprolol Tartrate [Lopressor] 100 mg PO BID 07/11/23 Multivitamins, Thera [Multivitamin (formulary)] 1 tab PO DAILY 07/11/23 [place] 3 (Unknown Dose) 500 mg PO DAILY 07/11/23 Sertraline [Zoloft] 100 mg PO DAILY 07/11/23 Voltaren Cream (Dose Unknown) 1 applic TOPICAL DIRECTED PRN 07/11/23 amLODIPine BESYLATE 10 mg PO DAILY 07/11/23 Tirzepatide [Mounjaro] 2.5 mg SQ FR 08/31/23 buPROPion XL [Wellbutrin XL] 150 mg PO DAILY 08/31/23 hydrOXYzine HCL [Atarax] 50 mg PO BID 08/31/23 Controlled Substance Measures - Controlled Substance Measures Is patient prescribed a controlled substance at discharge?: No
== END ==
LOC: PNWHC3 12:44
PROVIDERS: ATTEND Specialist
DX: M54.50 Low back pain, unspecified (principal); M47.816 Spondylosis without myelopathy or radiculopathy, lumbar region; M51.36 Other intervertebral disc degeneration, lumbar region; M46.1 Sacroiliitis, not elsewhere classified; Z88.0 Allergy status to penicillin; Z88.2 Allergy status to sulfonamides; Z88.1 Allergy status to other antibiotic agents; Z87.891 Personal history of nicotine dependence
CPT/HCPCS: 99211

== ENCOUNTER 2023-10-19 06:02 | Day surgery (SDC) | payer OTHER ==
[2023-10-16 13:23] VITALS: BMI 35.4
[2023-10-19 06:48] LABS: Glucose,Whole Blood 149 mg/dL (70-110)
[2023-10-19 06:50] VITALS: RESP 18; TEMP 97.2
[2023-10-19] MEDS ORDERED: IOPAMIDOL M200 10 ML VIAL ONE (07:09)
[2023-10-19] MEDS ORDERED: methylPREDNISolone ACETATE 40 MG/ML 1 ML VIAL ONE (07:09)
[2023-10-19] MEDS ORDERED: LACTATED RINGERS 1,000 ML IV SCH (07:18)
--- NOTE | 2023-10-19 07:23 | P.PCN ---
Date of Procedure: 10/19/23 Procedure(s) Performed: PREOPERATIVE DIAGNOSIS: 1-Lumbar radiculopathy . 2-lumbar degenerative disc disease. 3-lumbar spondylosis with lumbar facet arthropathy without myelopathy POSTOPERATIVE DIAGNOSIS: 1-lumbar radiculopathy. 2-lumbar degenerative disc disease. 3-lumbar spondylosis with facet arthropathy without myelopathy PROCEDURE 1. Transforaminal epidural steroid injection under fluoroscopic guidance at bilateral L5-S1 level. (Fluoroscopy images stored on file in the radiology Department ) 2. Lumbar epidurogram . ANESTHESIA: Local with 1% lidocaine 3 ml. EBL: Minimal PROCEDURE INDICATION: The patient with low back pain and radiculopathy symptoms unresponsive to conservative treatment. PROCEDURE DESCRIPTION / TECHNIQUE: The patient was seen and identified in the preoperative area. Risks, benefits, complications, and alternatives were discussed with the patient. The patient agreed to proceed with the procedure and signed the consent. IV was started, and vital signs were stable. Patient was taken to the OR and time out was completed. The patient was placed in the prone position on procedure table and a pillow was placed under the abdomen to reduce lumbar lordosis. The lumbosacral area was prepped and draped in the usual sterile fashion. Critical pause was taken. Vital signs were closely monitored during the procedure. Using oblique fluoroscopy, the chin of the ``Scout dog at Right L5-S1 level was identified, and the skin and deeper tissues just below was localized with 1% lidocaine. Subsequently, a 22-gauge 5-inch spinal needle was advanced under a tunneled view fluoroscopic guidance just underneath the chin of the ``Scout dog at the right L5-S1 Under lateral fluoroscopy, the needle was then advanced to the posterior border of the interforaminal space. After negative aspiration of CSF and blood and with no paresthesias, 1 mL Isovue 200 contrast dye was injected excellent epidurogram and outlining of the nerve root Subsequently, 3 mL of block solution containing 20 mg Depo-Medrol and 2 mL of 0.9% normal saline PF was injected. Needle was removed and the same procedure was repeated at the left L5-S1 level . At the end of the procedure, skin was cleansed, and bandages were applied. COMPLICATIONS:none DISPOSITION / PLANS: The patient was placed in a supine position and transferred to the recovery area in a stable condition for observation. There was no evidence of lower extremity motor or sensory deficit after the procedure. Patient was discharged from the recovery room after meeting discharge criteria. Home discharge instructions were given to the patient by the staff. The patient was reexamined prior to discharge.
[2023-10-19 08:03] VITALS: BP 110/68; PULSE 58
--- NOTE | 2023-10-19 08:14 | FL ---
EXAMINATION TYPE: FL guided pain mgmt statistic DATE OF EXAM: 10/19/2023 HISTORY: Fluoroscopy time Total dose area product (DAP) in uGy*m?, mGy*cm? (or similar): 0.34903 IMPRESSION: 1. Fluoroscopy time.
== END 2023-10-19 07:43 | disposition home or self-care (01) ==
LOC: ORPAIN 06:02
PROVIDERS: ATTEND Specialist
DX: M51.16 Intervertebral disc disorders with radiculopathy, lumbar region (principal); M47.26 Other spondylosis with radiculopathy, lumbar region; E11.9 Type 2 diabetes mellitus without complications; Z88.0 Allergy status to penicillin; Z88.2 Allergy status to sulfonamides
CPT/HCPCS: 64483; J1030; Q9966

== ENCOUNTER → 2023-11-07 | Outpatient (CLI) | payer OTHER ==
--- NOTE | 2023-11-09 07:48 | MR ---
EXAMINATION TYPE: MR cervical spine wo con DATE OF EXAM: 11/07/2023 COMPARISON: None HISTORY: Neck pain that radiates down both arms to fingers for 2 months CONTRAST: Performed utilizing 0 mL intravenous Gadavist gadolinium contrast. TECHNIQUE: Multiplanar multiecho imaging on a 3.0 Elvie magnet is performed through the cervical spin e. FINDINGS: The craniovertebral junction is normal. Vertebral body alignment is normal. Within the m idportion of the cervical spine there is some mild subtle increased signal, example image 501 image 1 0. Cord expansion however is not evident. This can be related to myelomalacia. Differential diagnosis could include multiple sclerosis. Precautionary follow-up MRI with contrast recommended. C7-T1: No focal disc herniation or significant disc bulge is evident. No spinal canal stenosis or n eural foraminal stenosis is present. C6-7: No focal disc herniation or significant disc bulge is evident. No spinal canal stenosis or jacob ral foraminal stenosis is present. C5-6: Based disc bulge is present with mild anterior thecal sac flattening. This comes in close appro ximation with the spinal cord. Cord contact or cord deformity is not evident. No spinal canal stenosi s present. Neural foramen are patent. C4-5: There is a moderate central subligamentous disc herniation with moderate anterior thecal sac co mpression. This appears to have cord contact and mild cord deformity. No AP spinal canal stenosis is present. Neural foramen are patent. C3-4: Subligamentous disc herniation is present with minimal anterior thecal sac contact. No AP spina l canal stenosis is present. Neural neural foramen has mild narrowing on the left. C2-3: No focal disc herniation or significant disc bulge is evident. No spinal canal stenosis or jacob ral foraminal stenosis is present. IMPRESSION: 1. Subligamentous disc herniation C4-5 with moderate anterior thecal sac compression, cord contact an d mild cord deformity. 2. At the C3-4 level there may be some mild cord signal change, findings may be related to myelomalac ia, recommend follow-up MRI cervical spine with contrast for additional evaluation. 3. Broad-based disc bulge C5-6 with mild anterior thecal sac compression.
== END | disposition home or self-care (01) ==
LOC: RADMRIMAIN 21:30
PROVIDERS: ATTEND Internal Medicine
DX: M50.221 Other cervical disc displacement at C4-C5 level (principal); M50.322 Other cervical disc degeneration at C5-C6 level; M43.8X2 Other specified deforming dorsopathies, cervical region
CPT/HCPCS: 72141

== ENCOUNTER → 2023-11-15 | Outpatient (CLI) | payer OTHER ==
[2023-11-15 11:44] VITALS: BP 122/82; PULSE 74; RESP 15; TEMP 98.2
--- NOTE | 2023-11-15 14:36 | P.PAINPG ---
PQRS Measure Charge Sheet Comment: A 52 yr old male with a history of severe and chronic LBP secondary to lumbar DDD and spondylosis with facet arthropathy without myelopathy , BL Sacroiliitis presents today for evaluation s/p BL TFESI L5-S1 #1. Pt states he experienced 90% pain relief x 4 days s/p procedure. Pain level is provoked at 9 /10 in intensity, constant, localized in the lumbar spine, predominantly axial, burning/ stinging in character w occasional shooting towards the tailbone. Pain is provoked by sitting for periods > 10 min. Pain is alleviated with PT which he started this week, alternating heat & ice, massages from his semi weekly, chiropractic treatments up semi monthly x 1 mo in Apr 2023, physician guided home stretching regimen every morning x 2 mo, medications, topical, repositioning and rest. Oswestry axial pain score of 23. Interventional pain procedures completed include BL TFESI L5-S1 x3 (Sep 2023), RON L2-L3 x2, BL SI injection x1 Patient is currently on Baclofen, THC gummies, Voltaren gel Patient denies any side effects of the medication(s), denies excessive drowsiness or sleepiness, denies suicidal ideation and reports that the current pain medication is helping to control the pain and improve activities of daily living. Patient denies any motor or sensory deficits. Patient denies any fever or night sweats, denies any change in the bowel movements or urination. Physical Examination: -Constitutional: Cooperative. Not in acute distress . - Neurologic: Cranial nerve II to XII intact. No focal neurological deficits. - Psychatric: Alert & oriented x 3. Matching mood & appropriate affect. Judgment and insight intact. - Musculoskeletal: Cervical spine: Muscle bulk/ tone/ strength in the bilateral upper extremities normal Vertebral body tenderness to palpation over Spurling test positive Distraction test positive Facet loading test positive TTP Thoracic spine Muscle bulk / tone/ strength in the bilateral paraspinal muscles normal Vertebral body tender to palpation over Facet loading test positive TTP Lumbar spine: Motor bulk/ tone/ strength lower extremities , thigh and legs : 5/5 Deep tendon reflexes : Normal Knee Jerk. Normal Ankle Jerk . Vertebral body tenderness to palpation L5 Ellison Test positive Lumbar Facet Loading Test positive Straight Leg Raise: positive at 30 degrees right side> left side Gaenslen's Test positive Sacral spine : Severe tenderness over the Sacroiliac joint: right side / left side Range of motion: Flexion of the lumbar spine <60 degrees Range of motion: Extension of the lumbar spine <20 degrees Gaenslen's Test positive right side / left side Katey test: positive right side / left side Thigh Thrust Test positive right side / left side Sacral Thrust Test positive right side / left side Assessment and plan: Chronic LBP secondary to lumbar DDD, spondylosis with facet arthropathy without myelopathy, BL Sacroiliitis Recommendation of follow up w Dr Enciso M51.36 Have reached 4 injections within a 12 mo period and pt continues to have severe pain. All questions answered. I have spent less than 30 minutes on patient care today. Dr Kim was available by phone for the evaluation of this patient. The time was used to review the medical records including relevant urine studies and Prescription history (MAPs), review of the available imaging, evaluation and examination of the patient, coordination of care with the medical staff and if applicable referring physicians, as well as creation of the medical record - Pain Location Bilateral Neck Non-Pharmacological Interventions: Ice, Inactivity, Position/Reposition Pharmacological Interventions: Scheduled Medication PQRS Narrative: Smoking Status Former smoker Hx Alcohol Use (MH) No Home Medications: Ambulatory Orders Albuterol Sulfate [Albuterol Sulfate Hfa] 2 puff INHALATION RT-Q6H PRN 08/30/22 Losartan Potassium 100 mg PO DAILY 08/30/22 Atorvastatin [Lipitor] 40 mg PO HS 09/07/22 Spironolactone 25 mg PO DAILY 10/25/22 Fluticasone/Umeclidin/Vilanter [Trelegy Ellipta 200-62.5-25] 1 puff INHALATION HS 12/13/22 Montelukast [Singulair] 10 mg PO HS 12/13/22 metFORMIN HCL 1,000 tab PO W/SUPPER 12/15/22 Omeprazole 40 mg PO DAILY 03/15/23 Cholecalciferol (Vitamin D3) [Vitamin D3 (125 MCG = 5,000 IU)] 125 mcg PO DAILY 07/11/23 Co Q-10 (Unknown Dose) 100 mg PO DAILY 07/11/23 Cyanocobalamin (Vitamin B-12) [Vitamin B-12] 1,000 mcg PO DAILY 07/11/23 Metoprolol Tartrate [Lopressor] 100 mg PO BID 07/11/23 Multivitamins, Thera [Multivitamin (formulary)] 1 tab PO DAILY 07/11/23 [place] 3 (Unknown Dose) 500 mg PO DAILY 07/11/23 Sertraline [Zoloft] 100 mg PO DAILY 07/11/23 Voltaren Cream (Dose Unknown) 1 applic TOPICAL DIRECTED PRN 07/11/23 amLODIPine BESYLATE 10 mg PO DAILY 07/11/23 Tirzepatide [Mounjaro] 2.5 mg SQ CORDERO 08/31/23 buPROPion XL [Wellbutrin XL] 150 mg PO DAILY 08/31/23 hydrOXYzine HCL [Atarax] 50 mg PO BID 08/31/23 Controlled Substance Measures - Controlled Substance Measures Is patient prescribed a controlled substance at discharge?: No
== END ==
LOC: PNWHC3 10:58
PROVIDERS: ATTEND Specialist
DX: M51.36 Other intervertebral disc degeneration, lumbar region (principal); M47.816 Spondylosis without myelopathy or radiculopathy, lumbar region; G89.29 Other chronic pain; M46.1 Sacroiliitis, not elsewhere classified; Z87.891 Personal history of nicotine dependence; Z88.0 Allergy status to penicillin; Z88.2 Allergy status to sulfonamides; Z88.1 Allergy status to other antibiotic agents
CPT/HCPCS: 99211

== ENCOUNTER → 2023-11-28 | Outpatient (CLI) | payer OTHER ==
--- NOTE | 2023-11-29 11:20 | MR ---
EXAMINATION TYPE: MR cervical spine wo/w con DATE OF EXAM: 11/28/2023 7:08 PM CLINICAL INDICATION:Male, 53 years old with history of M50.20 OTHER CERVICAL DISC DISPLACEMENT, UNSP CERV; PHH, Neck pain, MS COMPARISON: 11/07/2023. TECHNIQUE: Multi planar, multi sequence imaging was performed utilizing: T1-weighted, T2-weighted, an d turbo inversion recovery imaging of the cervical spine. IV Contrast: 12.5 cc Gadavist (none if empty) FINDINGS: Alignment: The cervical vertebral bodies have preserved heights. Alignment is within normal limits gi delores patient positioning. Bones: Bone signal is within normal limits. No abnormal bone marrow edema on inversion recovery seque nces. No abnormal postcontrast enhancement. Cord: The spinal cord is unremarkable with regards to their signal intensity and morphology. No abnor mal postcontrast enhancement. Discs: Intervertebral disc signal is maintained. C2-C3: No significant disc pathology. The spinal canal is patent. No neural foraminal stenosis. C3-C4: No significant disc pathology. The spinal canal is patent. Bilateral facet and uncovertebral joint arthropathy are present with mild bilateral neural foraminal stenosis. C4-C5: A disc osteophyte complex is present which minimally narrows the ventral subarachnoid space an d impresses upon the anterior spinal cord. Spinal cord signal is maintained.. No neural foraminal s tenosis. C5-C6: No significant disc pathology. The spinal canal is patent. Bilateral facet and uncovertebral joint arthropathy are present with mild left neural foraminal stenosis. The right neural foramen is p atent. C6-C7: No significant disc pathology. The spinal canal is patent. No neural foraminal stenosis. C7-T1: No significant disc pathology. The spinal canal is patent. No neural foraminal stenosis. Other: None. IMPRESSION: 1. Disc osteophyte complex at C4-C5 which impresses upon the anterior spinal cord. Spinal cord signal intensity examining appears maintained. No abnormal postcontrast enhancement. 2. Mild disc degeneration with associated osteoarthritic changes.
== END | disposition home or self-care (01) ==
LOC: RADMRIMAIN 18:15
PROVIDERS: ATTEND Internal Medicine
DX: M50.20 Other cervical disc displacement, unspecified cervical region (principal); M25.78 Osteophyte, vertebrae; M50.30 Other cervical disc degeneration, unspecified cervical region
CPT/HCPCS: 72156; A9585

== ENCOUNTER → 2023-12-06 | Outpatient (CLI) | payer OTHER ==
[2023-12-06 14:53] LABS: INR 0.9 (<1.2); Partial Thromboplastin Time 23.8 sec (22.0-30.0); Prothrombin Time 9.9 sec (10.0-12.5)
--- NOTE | 2023-12-06 16:33 | XR ---
EXAMINATION TYPE: XR chest 2V DATE OF EXAM: 12/06/2023 3:19 PM CLINICAL INDICATION:Male, 53 years old with history of PRE OP Z01.818; [facility] COMPARISON: Chest radiographs from 09/28/2022 TECHNIQUE: XR chest 2V Frontal and lateral views of the chest. FINDINGS: Lungs/Pleura: There is no evidence of pleural effusion, focal consolidation, or pneumothorax. Pulmonary vascularity: Unremarkable. Heart/mediastinum: Cardiomediastinal silhouette is unremarkable. Musculoskeletal: No acute osseous pathology. IMPRESSION: No acute cardiopulmonary disease/process.
[2023-12-06 19:11] LABS: Basophils # (A) 0.07 X 10*3/uL (0.00-0.10); Basophils % (A) 0.6 %; Eosinophils # (A) 0.73 X 10*3/uL (0.04-0.35); Eosinophils % (A) 6.8 %; HCT 40.2 % (39.6-50.0); HGB 13.3 g/dL (13.0-17.0); Lymphocytes % (A) 27.8 %; MCH 29.9 pg (27.0-32.0); MCHC 33.1 g/dL (32.0-37.0); MCV 90.3 FL (80.0-97.0); Mean Platelet Volume 10.6 FL (9.5-12.2); Monocytes # (A) 0.72 X 10*3/uL (0.20-1.00); Monocytes % (A) 6.7 %; NRBC Per 100 WBC 0 X 10*3/uL (0.00-0.01); Neutrophils # (A) 6.23 X 10*3/uL (1.80-7.70); Neutrophils % (A) 57.5 %; Platelet Count 256 X 10*3/uL (140-440); RBC 4.45 X 10*6/uL (4.40-5.60); RDW 12.6 % (11.5-14.5); WBC 10.81 X 10*3/uL (4.50-10.00)
[2023-12-06 19:26] LABS: Blood Urea Nitrogen 12.1 mg/dL (9.0-27.0); Calcium 8.7 mg/dL (8.7-10.3); Carbon Dioxide 24.6 mmol/L (21.6-31.8); Chloride 104 mmol/L (96-109); Glucose 112 mg/dL (70-110); Potassium 4.6 mmol/L (3.5-5.5); Sodium 139 mmol/L (135-145)
[2023-12-07 03:56] LABS: Appearance,Urine Clear (Clear); Bilirubin,Urine Negative (Negative); Blood,Urine Negative (Negative); Color,Urine Yellow (Yellow); Ketones,Urine Negative (Negative); Nitrite,Urine Negative (Negative); PH, Urine 5.5; Specific Gravity,Urine 1.017 (1.001-1.030); Urobilinogen,Urine 0.2 E.U./DL
== END | disposition home or self-care (01) ==
LOC: LABPAT 14:07
PROVIDERS: ATTEND Orthopaedic Surgery Orthopaedic Surgery of the Spine
DX: Z01.818 Encounter for other preprocedural examination (principal); M48.02 Spinal stenosis, cervical region; Z22.322 Carrier or suspected carrier of Methicillin resistant Staphylococcus aureus
CPT/HCPCS: 71046; 80048; 81003; 85025; 85610; 85730; 86850; 86900; 86901; 87070; 93005

== ENCOUNTER 2023-12-13 08:44 | Day surgery (SDC) | payer OTHER ==
[~2023-12-13 08:44] MED LIST changes: +HYDROmorphone 0.5 MG/0.5 ML SYRINGE IVP PRN; -LACTATED RINGERS 1,000 ML IV ONE; -LIDOCAINE 2% INJ 20 MG/ML (2 ML VIAL) ONE; -PROPOFOL 10 MG/ML 20 ML VIAL IV ONE; +droPERidol 5 MG/2 ML VIAL IVP ONE
[2023-12-13 09:32] LABS: Glucose,Whole Blood 114 mg/dL (70-110)
[2023-12-13] MEDS: LACTATED RINGERS 1,000 ML IV ONE ×2 (09:32→12:54)
[2023-12-13] MEDS: ONDANSETRON 4 MG/2 ML VIAL IVP ONE (09:33)
[2023-12-13] MEDS ORDERED: MIDAZOLAM 2 MG/2 ML VIAL ONE (11:35)
[2023-12-13] MEDS ORDERED: PHENYLEPHRINE 10 MG/ML VIAL ONE (11:35)
[2023-12-13] MEDS ORDERED: ePHEDrine 50 MG/ML 1 ML VIAL ONE (11:35)
[2023-12-13] MEDS ORDERED: ROCURONIUM 10 MG/ML (5 ML VIAL) IV ONE (11:35)
[2023-12-13] MEDS ORDERED: SUCCINYLCHOLINE CHLORIDE 200 MG/10 ML VIAL IV ONE (11:35)
[2023-12-13] MEDS ORDERED: NEOSTIGMINE 1 MG/ML 10 ML VIAL ONE (11:35)
[2023-12-13] MEDS ORDERED: DEXAMETHASONE SOD PHOSPHATE 10 MG/ML 1 ML VIAL ONE (11:35)
[2023-12-13] MEDS ORDERED: fentaNYL (PF) 50 MCG/ML 2 ML AMP ONE (11:35)
[2023-12-13] MEDS ORDERED: GLYCOPYRROLATE 0.2 MG/ML 2 ML VIAL ONE (11:35)
[2023-12-13] MEDS ORDERED: KETAMINE HCL IN 0.9 % NACL 50 MG/5 ML SYRINGE ONE (11:35)
[2023-12-13] MEDS ORDERED: LIDOCAINE 1% INJ 10MG/ML (20 ML MDV) ONE (11:35)
[2023-12-13] MEDS ORDERED: PROPOFOL 10 MG/ML 20 ML VIAL IV ONE (11:35)
[2023-12-13] MEDS: ceFAZolin 3 GM in SODIUM CHLORIDE 0.9% 100 ML IVPB PRN (11:39)
[2023-12-13] MEDS: LIDOCAINE 2%-EPI 1:100,000 20 ML VIAL SQ ONE (12:03)
[2023-12-13] MEDS: ceFAZolin 1,000 MG in SODIUM CHLORIDE 0.9% IRRIGATIO 1,000 ML IRRIGATION PRN (12:09)
[2023-12-13] MEDS: THROMBIN (BOVINE) 5,000 UNIT VIAL TOPICAL ONE (12:11)
--- NOTE | 2023-12-13 13:11 | XR ---
EXAMINATION TYPE: XR cervical spine 1V DATE OF EXAM: 12/13/2023 12:47 PM CLINICAL INDICATION:Male, 53 years old with history of ANTERIOR CERVICAL FUSION; COMPARISON: None TECHNIQUE: The cervical spine was imaged in frontal, lateral, and odontoid. FINDINGS: The osseous structures show normal alignment without evidence of an acute fracture. No significant ve rtebral body osteophytes or facet joint arthropathy. The intervertebral disk spaces are preserved. Pe dicles are intact. Soft tissues are within normal limits. The odontoid appears intact. IMPRESSION: Surgical instrument pointed at C5-C6 disc space.
[2023-12-13] MEDS ORDERED: BENZOCAINE/MENTHOL LOZENG 1 EACH LOZENGE MUCOUS MEM PRN (13:31)
[2023-12-13] MEDS ORDERED: ONDANSETRON 4 MG/2 ML VIAL IVP PRN (13:31)
[2023-12-13] MEDS ORDERED: CYCLOBENZAPRINE 10 MG TAB PO PRN (13:31)
[2023-12-13] MEDS ORDERED: HYDROmorphone 0.5 MG/0.5 ML SYRINGE IVP PRN (13:31)
[2023-12-13] MEDS ORDERED: HYDROmorphone 1 MG/ML 1 ML SYRINGE IVP PRN (13:31)
--- NOTE | 2023-12-13 13:32 | XR ---
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 COMPARISON: 12/13/2023 TECHNIQUE: The cervical spine was imaged in frontal, lateral, and odontoid. FINDINGS/IMPRESSION: : Post fixation changes to the spine hardware partially visualized due to should er. Hardware is visualized appears intact. Support tubes in place. No evidence of fracture.
--- NOTE | 2023-12-13 13:37 | P.OP ---
Date of Procedure: 12/13/23 Preoperative Diagnosis: Herniated nucleus pulposus C5-6 C4-5, cervical stenosis C4-5 C5-6, upper extreme radiculopathy, upper extremity weakness, degenerative disc disease, cervical kyphosis Postoperative Diagnosis: Same Anesthesia: GETA Pathology: none sent Condition: stable Disposition: PACU Description of Procedure: BRIEF OPERATIVE NOTE Preoperative Diagnosis:Herniated nucleus pulposus C5-6 C4-5, cervical stenosis C4-5 C5-6, upper extreme radiculopathy, upper extremity weakness, degenerative disc disease, cervical kyphosis Postoperative Diagnosis:Herniated nucleus pulposus C5-6 C4-5, cervical stenosis C4-5 C5-6, upper extreme radiculopathy, upper extremity weakness, degenerative disc disease, cervical kyphosis Procedure: Anterior cervical decompression with discectomy and fusion C4-5 C5-6 Placement of interbody graft C4-5 C5-6 Application of anterior cervical plate C4-5-6 Surgeon: Dr. [employer] Layout Drafter: Eusebio CHAKRABORTY who is present throughout the entire the case persistence during positioning, dissection, exposure, visualization, and all crucial elements of the case as well as closure. Anesthesia: General anesthesia per Dr. Chavez Estimated blood loss: Approximate 100 cc Complications: None apparent Components implanted: [place] anterior cervical plate with screws and Vikos interbody allograft bone graft and 1 cc of DBX bone graft Disposition: To recovery room in good stable condition. OPERATIVE INDICATIONS The patient has had long-standing issues in their neck and upper extremities. Patient has been having worsening over the past year in particular over the past several months. He was having significant symptoms at his neck and his upper extremities with radicular symptoms. He was having some evidence of intermittent weakness in his upper extremities. His imaging was found to have significant stenosis at C4-5 C5-6 with cervical kyphosis and disc herniation which correlate well with his neck and upper extremity symptoms. The patient has been through conservative treatment. We discussed various treatment options including surgery, and the patient wishes to proceed with surgery We discussed the risk, patient's alternatives and benefits of surgery including but not limited to, risk of bleeding risk of infection, risk of need for further surgery, risk of decreased, loss of motion, muscle function, malunion nonunion, hardware failure, nerve damage, paralysis, heart attack, and . OPERATIVE SUMMARY After discussing all the risks, patient alternatives and benefits at length, the patient elected to proceed with surgical intervention, signed informed consent, and presented for their procedure. The patient was seen and examined in the preoperative holding area and the surgical site was marked. The patient was given antibiotics and brought to the operating room. The patient was positioned on the operating room table in a supine position being careful to pad any bony prominences and pressure points. The patient was sedated and intubated by anesthesia in standard fashion. Once the airway and C- spine were stabilized the patient's arms were padded and tucked at her side, with her shoulders gently taped. The head was placed in a donut pad with the neck in good neutral alignment and position. We were careful to maintain the patient's cervical spine and good neutral alignment and position throughout. The patient was prepped and draped in a normal standard fashion. An appropriate timeout and keystone protocol performed. We were able to proceed with the surgery. The local wound area was infiltrated with local anesthetic. An incision was made transversely approximately 2-1/2 cm over the appropriate levels at C5. Dissection was taken down subcutaneously to the level of the platysma which was split in line with its fibers. Dissection was taken with a carotid approach, with the trachea and esophagus medial and the carotid sheath laterally. We dissected down to the anterior surface of the vertebral bodies. Intraoperative x-ray was taken which showed a marker at the appropriate level at C4-5 and C5-6. With the appropriate level positively confirmed, we were able to proceed with discectomy at the appropriate levels. All of the operative levels were exposed appropriately. The patient had all their twitches back, and there was no evidence of recurrent laryngeal issue. The wound was copiously irrigated and suctioned dry as had been done periodically throughout the case. At the appropriate level/levels, starting at C5-6 and then moving to C4-5, I established an annulotomy with an 11 blade scalpel. A discectomy was performed with a combination of pituitary rongeurs, curettes, a high-speed bur, and Kerrison rongeurs. The posterior longitudinal ligament was taken down as were any posterior osteophytes. This gave good central and bilateral foraminal decompression. There is no evidence of any dural tear or leak. The endplates were prepared with a high-speed bur. With the endplates in good parallel position, I was able to size for the appropriate size interbody graft. The wound was irrigated and suctioned dry the graft was prepared and malleted into position. It had good alignment and position with the anterior surface flush with the anterior surface of the vertebral bodies. This was done similarly the appropriate levels first at C5-6 and then at C4-5. With the grafts intact, I was able to measure and contour and appropriate sized plate. The plate was positioned at the midline over the appropriate levels at C4-5 and 6. Screw holes were established with a hand drill and drill guide. Screws were placed in good alignment and position with excellent bony purchase. They were seated under the locking device. The construct was checked and found to be stable. Intraoperative x-ray was taken which showed good alignment and position of the implants at the appropriate levels. There was no evidence of any dural tear or leak. Good hemostasis was maintained. The wound was copiously irrigated and suctioned dry as had been done periodically throughout the case. The platysma was closed with absorbable suture. The subcutaneous tissue was closed. The subcuticular tissue was closed with absorbable suture. The wound was cleaned and dried and dressed appropriately. A soft cervical collar was placed appropriately. The patient was woken up by anesthesia, extubated, transferred back gently to their hospital bed and brought to the recovery room in good stable condition. The patient will be admitted to the hospital for appropriate postoperative care, medical management and monitoring. We will continue to follow them closely about the postoperative course.
[2023-12-13] MEDS ORDERED: SODIUM CHLORIDE 0.9% 1,000 ML IV SCH (13:45)
[2023-12-13] MEDS: HYDROmorphone 0.5 MG/0.5 ML SYRINGE IVP ONE ×3 (14:09→14:47)
[2023-12-13 14:36] VITALS: TEMP 98
[2023-12-13 15:31] LABS: Glucose,Whole Blood 126 mg/dL (70-110)
[2023-12-13] MEDS: HYDROcodone/APAP 5-325MG 1 EACH TAB PO PRN (15:45)
[2023-12-13 16:25] VITALS: RESP 18
[2023-12-13 16:27] VITALS: PULSE 63
[2023-12-13 17:14] VITALS: BP 120/77
[2023-12-13] MEDS ORDERED: ceFAZolin 3 GM in SODIUM CHLORIDE 0.9% 100 ML IVPB SCH (20:00)
== END 2023-12-13 16:52 | disposition home or self-care (01) ==
LOC: OR 08:44 → EDSTATUS 10:15 → OR 16:52
PROVIDERS: ATTEND Orthopaedic Surgery Orthopaedic Surgery of the Spine
DX: M48.02 Spinal stenosis, cervical region (principal); M50.222 Other cervical disc displacement at C5-C6 level; M50.322 Other cervical disc degeneration at C5-C6 level; M40.202 Unspecified kyphosis, cervical region; I10 Essential (primary) hypertension; E78.5 Hyperlipidemia, unspecified; E11.9 Type 2 diabetes mellitus without complications; K21.9 Gastro-esophageal reflux disease without esophagitis; Z79.84 Long term (current) use of oral hypoglycemic drugs; Z79.899 Other long term (current) drug therapy; Z88.0 Allergy status to penicillin; Z88.8 Allergy status to other drugs, medicaments and biological substances
CPT/HCPCS: 72020; 22551; 22552; 22853 ×2; 20931; C1713 ×2; C1762; J2250; J0330; J1100; J2710; J0690 ×2; J2405; J2001; J3010; J2704; J1170; J2371

== ENCOUNTER → 2025-01-15 | Outpatient (CLI) | payer OTHER ==
--- NOTE | 2025-01-16 08:28 | CT ---
EXAMINATION TYPE: CT abdomen pelvis wo con DATE OF EXAM: 01/15/2025 9:27 AM COMPARISON: 05/24/2023 CLINICAL INDICATION: Male, 54 years old with history of K92.0 HEMATEMESIS; Epigastric pain and hemate mesis TECHNIQUE: CT of the abdomen and pelvis without IV contrast. Coronal and sagittal reconstructions per formed. Oral contrast used: with Oral Contrast CT DLP: 1450.3 mGycm, Automated exposure control for dose reduction was used. FINDINGS: LOWER CHEST: Unremarkable ABDOMEN LIVER: Unremarkable GALLBLADDER AND BILE DUCTS: Cholecystectomy clips.. PANCREAS: Unremarkable. SPLEEN: Small inferior splenule. Otherwise, unremarkable. ADRENAL GLANDS: Unremarkable. KIDNEYS AND URETERS: No evidence of hydronephrosis or renal calculus. The ureters are unremarkable. PELVIS BLADDER: No evidence for wall thickening or mass given limitations of exam. REPRODUCTIVE: Prostate gland is mildly enlarged 4.5 cm wide. Small pelvic phlebolith. No abnormal flu id collection in the pelvis. ABDOMEN & PELVIS STOMACH AND BOWEL: Small 1.9 cm diverticulum of the second portion of the duodenum projecting into th e pancreatic head region. No evidence of bowel obstruction. Scattered mild stool. Minimal left-sided colonic diverticulosis. No pericolonic inflammatory change. PERITONEUM/RETROPERITONEUM: No evidence of pneumoperitoneum or free fluid. VASCULATURE: No evidence of aortic aneurysm. MUSCULOSKELETAL: Mild early degenerative change of the hips. Moderate to severe degenerative disc dis ease L5-S1 and [id number] at L4-L5. LYMPH NODES: No gross evidence for lymphadenopathy. SOFT TISSUE/ABDOMINAL WALL: Unremarkable IMPRESSION: 1. Minimal left-sided colonic diverticulosis without acute diverticulitis. 2. Status post cholecystectomy. 3. No acute inflammatory process identified to account for the patient's symptoms. [facility], Workstation: [email or web address], 01/16/2025 8:25 AM
== END | disposition home or self-care (01) ==
LOC: RADCTMAIN 07:40
PROVIDERS: ATTEND Internal Medicine
DX: K92.0 Hematemesis (principal); K57.30 Diverticulosis of large intestine without perforation or abscess without bleeding; Z90.49 Acquired absence of other specified parts of digestive tract
CPT/HCPCS: 74176